=== PATIENT | female | born 1975 | race Hispanic/Latino ===

== ENCOUNTER → 2017-04-08 | Outpatient (REF) | payer OTHER ==
[2017-04-08 14:51] LABS: ALBUMIN 3.6 GM/DL (3.2-5.2); ALBUMIN/GLOBULIN RATIO 0.97 (1.00-1.93); ALKALINE PHOSPHATASE 210 U/L (45-117); ALT/SGPT 612 U/L (12-78); ANION GAP 8 MEQ/L (8-16); AST/SGOT 657 U/L (7-37); BILIRUBIN,TOTAL 0.6 MG/DL (0.2-1.0); BLOOD UREA NITROGEN 8 MG/DL (7-18); CALCIUM LEVEL 8.7 MG/DL (8.5-10.1); CARBON DIOXIDE LEVEL 30 MEQ/L (21-32); CHLORIDE LEVEL 102 MEQ/L (98-107); CHOLESTEROL LEVEL 229 MG/DL (<200); CHOLESTEROL RISK RATIO 2.436 (<5); GLOMERULAR FILTRATION RATE > 60.0 (>58); GLUCOSE, FASTING 107 MG/DL (70-105); HDL CHOLESTEROL 94 MG/DL (>40); NON-HDL-C 135 MG/DL; POTASSIUM SERUM 4.3 MEQ/L (3.5-5.1); SODIUM LEVEL 140 MEQ/L (136-145); TOTAL PROTEIN 7.3 GM/DL (6.4-8.2); TRIGLYCERIDES LEVEL 75 MG/DL (<150)
== END ==
LOC: M LAB REF 13:49
DX: R03.0 Elevated blood-pressure reading, without diagnosis of hypertension (principal)

== ENCOUNTER → 2017-04-14 | Outpatient (REF) | payer OTHER, MEDICAID ==
[2017-04-14 19:44] LABS: BASO # 0.1 10^3/uL (0.0-0.2); BASO % 0.7 % (0.0-1.0); EOS # 0.2 10^3/uL (0.0-0.50); EOS % 1.2 % (0.0-3.0); HEMATOCRIT 37.1 % (36.0-47.0); HEMOGLOBIN 10.5 g/dl (12.0-16.0); IMMATURE GRANULOCYTE # 0.1 10^3/uL (0-0); IMMATURE GRANULOCYTE % 0.7 % (0-0); LYMPH # 2.7 10^3/uL (1.5-4.5); LYMPH % 22.4 % (24.0-44.0); MEAN CORPUSCULAR HEMOGLOBIN 21.5 pg (27.0-33.0); MEAN CORPUSCULAR HGB CONC 28.3 g/dl (32.0-36.5); MONO # 0.6 10^3/uL (0.0-0.8); MONO % 5.2 % (0.0-5.0); NEUTROPHILS # 8.5 10^3/uL (1.8-7.7); NEUTROPHILS % 69.8 % (36.0-66.0); PLATELET COUNT, AUTOMATED 469 10^3/uL (150-450); RED BLOOD COUNT 4.88 10^6/uL (4.00-5.40); RED CELL DISTRIBUTION WIDTH 18.9 % (11.5-14.5); WHITE BLOOD COUNT 12.2 10^3/uL (4.0-10.0)
[2017-04-14 20:22] LABS: ALBUMIN 3.6 GM/DL (3.2-5.2); ALBUMIN/GLOBULIN RATIO 0.97 (1.00-1.93); ALKALINE PHOSPHATASE 208 U/L (45-117); ALT/SGPT 186 U/L (12-78); ANION GAP 8 MEQ/L (8-16); AST/SGOT 38 U/L (7-37); BILIRUBIN,TOTAL 0.4 MG/DL (0.2-1.0); BLOOD UREA NITROGEN 9 MG/DL (7-18); CALCIUM LEVEL 8.5 MG/DL (8.5-10.1); CARBON DIOXIDE LEVEL 30 MEQ/L (21-32); CHLORIDE LEVEL 102 MEQ/L (98-107); CREATININE FOR GFR 0.76 MG/DL (0.55-1.02); FERRITIN 10 NG/ML (8-252); GLOMERULAR FILTRATION RATE > 60.0 (>58); GLUCOSE, FASTING 127 MG/DL (70-105); IRON (FE) 27 UG/DL (50-170); SODIUM LEVEL 140 MEQ/L (136-145); TOTAL PROTEIN 7.3 GM/DL (6.4-8.2)
[2017-04-16 18:10] LABS: HEPATITIS B SURFACE ANTIGEN NEGATIVE (NEGATIVE)
[2017-04-16 18:29] LABS: HEPATITIS C VIRUS ABY INDEX 0.1 INDEX (<0.8)
[2017-04-16 18:30] LABS: HEPATITIS B CORE ANTIBODY IGM NEGATIVE (NEGATIVE)
[2017-04-16 18:40] LABS: HEPATITIS A ANTIBODY IGM NEGATIVE (NEGATIVE)
== END ==
LOC: M LAB REF 18:27
DX: R94.5 Abnormal results of liver function studies (principal)
CPT/HCPCS: 83540

== ENCOUNTER → 2017-05-04 | Outpatient (CLI) | payer OTHER, MEDICAID | LOC: M RAD 06:10 | DX: R94.5 Abnormal results of liver function studies (principal) | CPT/HCPCS: 76705 ==

== ENCOUNTER → 2017-07-05 | Outpatient (REF) | payer OTHER ==
[2017-07-05 13:43] LABS: HEMATOCRIT 34.1 % (36.0-47.0); HEMOGLOBIN 9.7 g/dl (12.0-15.5); MEAN CORPUSCULAR HGB CONC 28.4 g/dl (32.0-36.5); PLATELET COUNT, AUTOMATED 406 10^3/uL (150-450); RED BLOOD COUNT 4.61 10^6/uL (4.00-5.40); RED CELL DISTRIBUTION WIDTH 17.4 % (11.5-14.5)
[2017-07-05 13:49] LABS: WHITE BLOOD COUNT 19.4 10^3/uL (4.0-10.0)
[2017-07-05 13:50] LABS: ADD MANUAL DIFFER YES; DIFF SLIDE NUMBER 235; POSITIVE DIFF POS FLAG
[2017-07-05 13:57] LABS: IMMUNOGLOBULIN E 43.8 IU/ML (<100)
[2017-07-05 14:18] LABS: EOSINOPHILS 1 % (0-5); LYMPHOCYTES 21 % (16-52); MONOCYTES 5 % (0-8); NEUTROPHILS 73 % (35-75)
[2017-07-05 14:19] LABS: ANISOCYTOSIS 1+; HYPOCHROMASIA 1+; PLATELET ESTIMATE INCREASED (NORMAL)
[2017-07-05 14:20] LABS: POLYCHROMASIA 1+
== END ==
LOC: M LAB REF 12:40
DX: J45.50 Severe persistent asthma, uncomplicated (principal)
CPT/HCPCS: 82785

== ENCOUNTER → 2017-12-27 | Outpatient (REF) | payer OTHER, MEDICAID | LOC: M LAB REF 13:59 | DX: E66.01 Morbid (severe) obesity due to excess calories (principal) | CPT/HCPCS: 84443 ==

== ENCOUNTER 2018-01-07 17:43 | Emergency (ER) | payer OTHER, MEDICAID ==
[2018-01-07] MEDS: IPRATROPIUM 0.5MG/ALBUTEROL 2.5MG INH SOL UD 3ML (DUONEB)(J7620) NEB (18:29)
[2018-01-07] MEDS: methylPREDNISolone INJ 125 MG/2 ML VIAL (J2930) IM (18:36)
[2018-01-07 18:38] LABS: VENOUS BASE EXCESS 0.6 (-2.0-2.0); VENOUS HCO3 27.3 MEQ/L (23.0-27.0); VENOUS O2 SATURATION 71.8 % (60.0-80.0); VENOUS PARTIAL PRESSURE CO2 54.2 mmHg (38.0-50.0); VENOUS PARTIAL PRESSURE O2 43.2 mmHg (30.0-50.0); VENOUS STANDARD HCO3 24.5 MEQ/L
[2018-01-07 18:52] LABS: ANION GAP 7 MEQ/L (8-16); BASO # 0.1 10^3/uL (0.0-0.2); BASO % 0.8 % (0.0-1.0); BLOOD UREA NITROGEN 10 MG/DL (7-18); CALCIUM LEVEL 8.4 MG/DL (8.5-10.1); CARBON DIOXIDE LEVEL 29 MEQ/L (21-32); CHLORIDE LEVEL 104 MEQ/L (98-107); CREATININE FOR GFR 0.73 MG/DL (0.55-1.30); EOS # 0.6 10^3/uL (0.0-0.50); EOS % 4.1 % (0.0-3.0); GLOMERULAR FILTRATION RATE > 60.0 (>58); GLUCOSE, FASTING 145 MG/DL (70-100); HEMATOCRIT 35.2 % (36.0-47.0); HEMOGLOBIN 9.4 g/dl (12.0-15.5); IMMATURE GRANULOCYTE % 0.4 % (0-3.0); LYMPH # 3.3 10^3/uL (1.5-4.5); LYMPH % 22.9 % (24.0-44.0); MEAN CORPUSCULAR HEMOGLOBIN 19.2 pg (27.0-33.0); MEAN CORPUSCULAR HGB CONC 26.7 g/dl (32.0-36.5); MEAN CORPUSCULAR VOLUME 71.8 fl (80.0-96.0); MONO # 0.9 10^3/uL (0.0-0.8); MONO % 6.3 % (0.0-5.0); NEUTROPHILS # 9.3 10^3/uL (1.8-7.7); NEUTROPHILS % 65.5 % (36.0-66.0); PLATELET COUNT, AUTOMATED 473 10^3/uL (150-450); POTASSIUM SERUM 3.9 MEQ/L (3.5-5.1); RED CELL DISTRIBUTION WIDTH 18.5 % (11.5-14.5); SODIUM LEVEL 140 MEQ/L (136-145); WHITE BLOOD COUNT 14.2 10^3/uL (4.0-10.0)
== END 2018-01-07 19:28 | disposition home or self-care (01) ==
LOC: M ED 17:43
DX: J45.901 Unspecified asthma with (acute) exacerbation (principal)
CPT/HCPCS: J2930

== ENCOUNTER → 2018-01-19 | Outpatient (CLI) | payer OTHER | LOC: M CARPUL 09:22 | DX: R06.00 Dyspnea, unspecified (principal) | CPT/HCPCS: 93306 ==

== ENCOUNTER 2018-02-15 12:48 | Outpatient (CLI) | payer OTHER ==
[2018-03-01 15:56] LABS: ABG BASE EXCESS 1.4 (-2.0-2.0); ABG HCO3 25.4 MEQ/L (22.0-26.0); ABG O2 SATURATION 96.5 % (95.0-99.0); ABG PARTIAL PRESSURE CO2 37.9 mmHg (35.0-45.0); ABG PARTIAL PRESSURE O2 85.1 mmHg (75.0-100.0); ABG STANDARD HCO3 25.7 MEQ/L (22.0-26.0); ABG TOTAL CO2 26.6 MEQ/L (22.0-29.0); ABG pH (ARTERIAL) 7.444 UNITS (7.350-7.450)
== END 2018-03-01 ==
LOC: M CARPUL 12:48
DX: R06.00 Dyspnea, unspecified (principal)
CPT/HCPCS: 36600

== ENCOUNTER 2018-04-15 18:00 | Emergency (ER) | payer MEDICAID, OTHER ==
[~2018-04-15] VITALS: Ht 147.3 cm; Wt 100.0 kg
[~2018-04-15 18:00] MED LIST: ALBU83IN; INCR1INH; PRED10TA2; PRED10TA2 PO; PROAAER10 INH; VENTAER
[2018-04-15] MEDS ORDERED: TRAZ-160 PO (18:07)
[2018-04-15] MEDS ORDERED: CITA20TA4 PO (18:07)
[2018-04-15] MEDS ORDERED: BENZONATATE 100 MG CAP PO ONE (18:45)
[2018-04-15] MEDS ORDERED: AUGMENTIN 875 MG TAB PO ONE (18:45)
[2018-04-15] MEDS ORDERED: LIDOCAINE VISCOUS 2% SOLN 15ML UDC SS ONE (18:45)
[2018-04-15 19:15] LABS: INFLUENZA A AMPLIFICATION NEGATIVE (NEGATIVE); INFLUENZA B AMPLIFICATION NEGATIVE (NEGATIVE)
[2018-04-15] MEDS ORDERED: LIDO1SOL7 PO (19:31)
[2018-04-15] MEDS ORDERED: AUGM875T28 PO (19:31)
[2018-04-15 19:40] VITALS: BP 115/63
== END 2018-04-15 19:40 | disposition home or self-care (01) ==
LOC: M ED 18:00
DX: J06.9 Acute upper respiratory infection, unspecified (principal); B34.9 Viral infection, unspecified; H66.92 Otitis media, unspecified, left ear; J45.909 Unspecified asthma, uncomplicated; Z79.899 Other long term (current) drug therapy; Z88.8 Allergy status to other drugs, medicaments and biological substances

== ENCOUNTER 2018-05-27 12:23 | Emergency (ER) | payer MEDICAID, OTHER ==
[~2018-05-27] VITALS: Ht 147.3 cm; Wt 102.3 kg
[~2018-05-27 12:23] MED LIST changes: +AUGM875T28 PO; +CITA20TA4 PO; +LIDO1SOL7 PO; +TRAZ-160 PO
--- NOTE | 2018-05-27 14:14 | REP ---
UNILATERAL LEFT RIBS, PA CHEST: HISTORY: Pain. The examination is limited secondary to the patient's body habitus. The lungs are clear. The heart is normal in size. The pulmonary vasculature is normal in appearance. The bony structure is intact. IMPRESSION: No acute disease. Electronically Signed by Roberto Gunn MD 05/27/2018 02:20 P
[2018-05-27 14:59] VITALS: BP 127/75
== END 2018-05-27 15:07 | disposition home or self-care (01) ==
LOC: M ED 12:23
DX: S29.011A Strain of muscle and tendon of front wall of thorax, initial encounter (principal); X50.9XXA Other and unspecified overexertion or strenuous movements or postures, initial encounter; Y92.89 Other specified places as the place of occurrence of the external cause; J45.909 Unspecified asthma, uncomplicated; Z88.6 Allergy status to analgesic agent; Z79.899 Other long term (current) drug therapy

== ENCOUNTER → 2018-06-02 | Outpatient (REF) | payer OTHER, MEDICAID ==
[2018-06-02 17:14] LABS: AMORPHOUS SEDIMENT LARGE (NEGATIVE); APPEARANCE, URINE TURBID (CLEAR); BACTERIA, URINE AUTO 1+ (NEGATIVE); BILIRUBIN, URINE AUTO NEGATIVE (NEGATIVE); BLOOD, URINE BLOOD 3+ (NEGATIVE); COLOR, URINE YELLOW (YELLOW); GLUCOSE, URINE (UA) AUTO NEGATIVE (NEGATIVE); KETONE, URINE AUTO TRACE mg/dL (NEGATIVE); LEUKOCYTE ESTERASE, URINE AUTO 3+ (NEGATIVE); MUCUS, URINE LARGE (NEGATIVE); NITRITE, URINE AUTO NEGATIVE (NEGATIVE); PROTEIN, URINE AUTO 1+ mg/dL (NEGATIVE); RBC, URINE AUTO TNTC /HPF (0-3); SPECIFIC GRAVITY URINE AUTO 1.028 (1.002-1.035); SQUAMOUS EPITHELIAL CELL UR AU 2 /HPF (0-6); WBC, URINE AUTO 18 /HPF (0-3)
[2018-06-02 18:22] LABS: HEMATOCRIT 34.7 % (36.0-47.0); HEMOGLOBIN 9.2 g/dl (12.0-15.5); MEAN CORPUSCULAR HEMOGLOBIN 18.5 pg (27.0-33.0); MEAN CORPUSCULAR HGB CONC 26.5 g/dl (32.0-36.5); MEAN CORPUSCULAR VOLUME 69.8 fl (80.0-96.0); PLATELET COUNT, AUTOMATED 580 10^3/uL (150-450); RED BLOOD COUNT 4.97 10^6/uL (4.00-5.40); WHITE BLOOD COUNT 15.9 10^3/uL (4.0-10.0)
[2018-06-02 18:38] LABS: HEMOGLOBIN A1c 7.1 %
[2018-06-02 18:49] LABS: ALBUMIN 3.6 GM/DL (3.2-5.2); ALT/SGPT 27 U/L (12-78); BILIRUBIN,TOTAL 0.3 MG/DL (0.2-1.0); BLOOD UREA NITROGEN 11 MG/DL (7-18); CALCIUM LEVEL 8.3 MG/DL (8.5-10.1); CARBON DIOXIDE LEVEL 29 MEQ/L (21-32); CHLORIDE LEVEL 105 MEQ/L (98-107); CHOLESTEROL LEVEL 185 MG/DL (<200); CHOLESTEROL RISK RATIO 2.803 (<5); CREATININE FOR GFR 0.71 MG/DL (0.55-1.30); GLOMERULAR FILTRATION RATE > 60.0 (>58); GLUCOSE, FASTING 100 MG/DL (70-100); HDL CHOLESTEROL 66 MG/DL (>40); LDL CHOLESTEROL 101 MG/DL (<100); NON-HDL-C 119 MG/DL; POTASSIUM SERUM 3.7 MEQ/L (3.5-5.1); SODIUM LEVEL 142 MEQ/L (136-145); TOTAL PROTEIN 7.5 GM/DL (6.4-8.2); TRIGLYCERIDES LEVEL 89 MG/DL (<150)
[2018-06-02 18:50] LABS: TOTAL 25(OH) VITAMIN D 11.8 NG/ML (30.0-100.0)
[2018-06-02 18:58] LABS: ANISOCYTOSIS 2+; BASOPHILS 1 % (0-4); EOSINOPHILS 4 % (0-5); HYPOCHROMASIA 2+; LYMPHOCYTES 38 % (16-52); MICROCYTOSIS 2+; MONOCYTES 3 % (0-8); NEUTROPHILS 54 % (35-75); PLATELET ESTIMATE INCREASED (NORMAL)
[2018-06-02 19:01] LABS: POLYCHROMASIA 1+
== END ==
LOC: M LAB REF 16:30
PROVIDERS: ATTEND Nurse Practitioner Family
DX: N39.0 Urinary tract infection, site not specified (principal); Z13.9 Encounter for screening, unspecified

== ENCOUNTER 2018-07-01 11:51 | Emergency (ER) | payer MEDICAID, OTHER ==
[~2018-07-01] VITALS: Ht 147.3 cm; Wt 98.4 kg
[~2018-07-01 11:51] MED LIST changes: -CITA20TA4 PO; +CITA20TA6 PO; -LIDO1SOL7 PO; +LIDO1SOL8 PO
[2018-07-01] MEDS ORDERED: IPRATROPIUM 0.5MG/ALBUTEROL 2.5MG INH SOL UD 3ML (DUONEB)(J7620) As Ordered ONE (12:14)
[2018-07-01] MEDS ORDERED: methylPREDNISolone INJ 125 MG/2 ML VIAL (J2930) IV ONE (12:30)
[2018-07-01] MEDS: IPRATROPIUM 0.5MG/ALBUTEROL 2.5MG INH SOL UD 3ML (DUONEB)(J7620) NEB PRN ×2 (12:44→12:55)
[2018-07-01 12:52] LABS: BASO # 0.1 10^3/uL (0.0-0.2); BASO % 0.7 % (0.0-1.0); EOS # 0.8 10^3/uL (0.0-0.50); EOS % 4.3 % (0.0-3.0); HEMATOCRIT 33.5 % (36.0-47.0); HEMOGLOBIN 8.9 g/dl (12.0-15.5); LYMPH # 3.5 10^3/uL (1.5-4.5); LYMPH % 19.8 % (24.0-44.0); MEAN CORPUSCULAR HEMOGLOBIN 18.3 pg (27.0-33.0); MEAN CORPUSCULAR HGB CONC 26.6 g/dl (32.0-36.5); MEAN CORPUSCULAR VOLUME 68.9 fl (80.0-96.0); MONO # 1.2 10^3/uL (0.0-0.8); MONO % 6.4 % (0.0-5.0); NEUTROPHILS # 12.2 10^3/uL (1.8-7.7); NEUTROPHILS % 68.4 % (36.0-66.0); PLATELET COUNT, AUTOMATED 465 10^3/uL (150-450); RED BLOOD COUNT 4.86 10^6/uL (4.00-5.40); WHITE BLOOD COUNT 17.9 10^3/uL (4.0-10.0)
[2018-07-01 13:18] LABS: BLOOD UREA NITROGEN 11 MG/DL (7-18); CALCIUM LEVEL 8.9 MG/DL (8.5-10.1); CARBON DIOXIDE LEVEL 30 MEQ/L (21-32); CHLORIDE LEVEL 102 MEQ/L (98-107); CREATININE FOR GFR 0.66 MG/DL (0.55-1.30); GLOMERULAR FILTRATION RATE > 60.0 (>58); GLUCOSE, FASTING 93 MG/DL (70-100); SODIUM LEVEL 139 MEQ/L (136-145)
[2018-07-01 13:21] LABS: INFLUENZA A AMPLIFICATION NEGATIVE (NEGATIVE); INFLUENZA B AMPLIFICATION NEGATIVE (NEGATIVE)
--- NOTE | 2018-07-01 13:35 | REP ---
Clinical: Cough and dyspnea . Comparison: 05/27/2018 . Technique: PA and lateral. Findings: The mediastinum and cardiac silhouette are normal. The lung paulson are clear and without acute consolidation, effusion, or pneumothorax. The skeletal structures are intact and normal. Impression: 1. No acute cardiopulmonary process. Electronically Signed by Esteban Rousseau MD 07/01/2018 01:26 P
[2018-07-01] MEDS ORDERED: CITA20TA6 PO (14:09)
[2018-07-01] MEDS ORDERED: MONT10TA2 PO (14:09)
[2018-07-01] MEDS ORDERED: TRAZ-160 PO (14:09)
[2018-07-01] MEDS ORDERED: ALBU83IN PO (14:09)
[2018-07-01 14:55] VITALS: O2SAT 92
[2018-07-01] MEDS ORDERED: SYMB16INH INH (15:24)
[2018-07-01] MEDS ORDERED: PRED20TA PO (15:24)
[2018-07-01 15:37] VITALS: BP 134/86
== END 2018-07-01 15:40 | disposition home or self-care (01) ==
LOC: M ED 11:51
DX: J45.901 Unspecified asthma with (acute) exacerbation (principal); G47.33 Obstructive sleep apnea (adult) (pediatric); Z88.8 Allergy status to other drugs, medicaments and biological substances; Z79.52 Long term (current) use of systemic steroids; Z79.899 Other long term (current) drug therapy
CPT/HCPCS: 71046; 80048; 85025; 87502; 87880; 94640; 96374; 99284; J2930

== ENCOUNTER 2018-07-29 01:33 | Emergency (ER) | payer MEDICAID, OTHER ==
[~2018-07-29] VITALS: Ht 149.9 cm; Wt 95.0 kg
[~2018-07-29 01:33] MED LIST changes: +ALBU83IN PO; +MONT10TA2 PO; +PRED20TA PO; +SYMB16INH INH
[2018-07-29] MEDS ORDERED: methylPREDNISolone INJ 125 MG/2 ML VIAL (J2930) IV ONE (02:15)
[2018-07-29] MEDS ORDERED: IPRATROPIUM 0.5MG/ALBUTEROL 2.5MG INH SOL UD 3ML (DUONEB)(J7620) NEB PRN (02:15)
[2018-07-29 03:34] LABS: INFLUENZA A AMPLIFICATION NEGATIVE (NEGATIVE); INFLUENZA B AMPLIFICATION NEGATIVE (NEGATIVE)
[2018-07-29] MEDS ORDERED: PRED20TA PO (04:45)
[2018-07-29 04:53] VITALS: BP 127/78
--- NOTE | 2018-07-29 08:50 | REP ---
Chest x-ray: Two views. History: Dyspnea and cough . Comparison study: July 01, 2018 . Findings: The lungs are well inflated and free of infiltrate. The pleural angles are sharp. The heart size is normal. Pulmonary vasculature is not increased. No significant bony abnormality is seen. Impression: Negative chest x-ray. Electronically Signed by Mt Powell MD 07/29/2018 08:42 A
== END 2018-07-29 04:55 | disposition home or self-care (01) ==
LOC: M ED 01:33 → EDBD 01:33 → M ED 04:55
DX: J45.901 Unspecified asthma with (acute) exacerbation (principal); Z79.899 Other long term (current) drug therapy; Z88.8 Allergy status to other drugs, medicaments and biological substances
CPT/HCPCS: 71046; 87502; 96374; 99284; J2930

== ENCOUNTER → 2018-09-13 | Outpatient (REF) | payer OTHER ==
[~2018-09-13] MED LIST changes: +BENZ200C70 PO; +MUCI600T31 PO; -TRAZ-160 PO; +TRAZ-252 PO
[2018-09-13 18:24] LABS: BASO # 0.1 10^3/uL (0.0-0.2); BASO % 0.6 % (0.0-1.0); EOS # 0.4 10^3/uL (0.0-0.50); EOS % 2.9 % (0.0-3.0); HEMATOCRIT 35.6 % (36.0-47.0); HEMOGLOBIN 9.4 g/dl (12.0-15.5); LYMPH # 2.3 10^3/uL (1.5-4.5); LYMPH % 15.7 % (24.0-44.0); MEAN CORPUSCULAR HEMOGLOBIN 18.9 pg (27.0-33.0); MEAN CORPUSCULAR HGB CONC 26.4 g/dl (32.0-36.5); MEAN CORPUSCULAR VOLUME 71.5 fl (80.0-96.0); MONO # 0.7 10^3/uL (0.0-0.8); MONO % 4.8 % (0.0-5.0); NEUTROPHILS # 11.1 10^3/uL (1.8-7.7); NEUTROPHILS % 75.5 % (36.0-66.0); PLATELET COUNT, AUTOMATED 543 10^3/uL (150-450); RED BLOOD COUNT 4.98 10^6/uL (4.00-5.40); WHITE BLOOD COUNT 14.7 10^3/uL (4.0-10.0)
[2018-09-13 18:33] LABS: ALBUMIN 3.7 GM/DL (3.2-5.2); ALT/SGPT 29 U/L (12-78); BILIRUBIN,TOTAL 0.5 MG/DL (0.2-1.0); BLOOD UREA NITROGEN 9 MG/DL (7-18); CALCIUM LEVEL 8.8 MG/DL (8.5-10.1); CARBON DIOXIDE LEVEL 32 MEQ/L (21-32); CHLORIDE LEVEL 103 MEQ/L (98-107); CHOLESTEROL LEVEL 170 MG/DL (<200); CHOLESTEROL RISK RATIO 2.833 (<5); CREATININE FOR GFR 0.76 MG/DL (0.55-1.30); GLOMERULAR FILTRATION RATE > 60.0 (>58); GLUCOSE, FASTING 121 MG/DL (70-100); HDL CHOLESTEROL 60 MG/DL (>40); LDL CHOLESTEROL 90 MG/DL (<100); NON-HDL-C 110 MG/DL; SODIUM LEVEL 140 MEQ/L (136-145); TOTAL PROTEIN 7.2 GM/DL (6.4-8.2); TRIGLYCERIDES LEVEL 102 MG/DL (<150)
[2018-09-13 18:35] LABS: TOTAL 25(OH) VITAMIN D 25.4 NG/ML (30.0-100.0)
[2018-09-13 19:42] LABS: HEMOGLOBIN A1c 7.2 %
== END ==
LOC: M LAB REF 16:58
PROVIDERS: ATTEND Nurse Practitioner Family
DX: Z13.9 Encounter for screening, unspecified (principal); E11.9 Type 2 diabetes mellitus without complications

== ENCOUNTER 2018-09-18 22:47 | Emergency (ER) | payer OTHER ==
[~2018-09-18] VITALS: Ht 149.9 cm; Wt 100.0 kg
[2018-09-19] MEDS ORDERED: IPRATROPIUM 0.5MG/ALBUTEROL 2.5MG INH SOL UD 3ML (DUONEB)(J7620) NEB ONE (00:30)
[2018-09-19 01:46] VITALS: BP 115/62
[2018-09-29] MEDS ORDERED: METF500T4 (13:11)
== END 2018-09-19 01:49 | disposition home or self-care (01) ==
LOC: M ED 22:47
DX: J45.909 Unspecified asthma, uncomplicated (principal); G47.30 Sleep apnea, unspecified; Z79.84 Long term (current) use of oral hypoglycemic drugs; Z79.899 Other long term (current) drug therapy; Z88.8 Allergy status to other drugs, medicaments and biological substances

== ENCOUNTER 2018-09-29 13:06 | Emergency (ER) | payer OTHER ==
[~2018-09-29] VITALS: Ht 149.9 cm; Wt 104.5 kg
[2018-09-29 13:06] VITALS: BP 122/78
[2018-09-29] MEDS ORDERED: METF-791 (13:11)
[2018-09-29] MEDS ORDERED: FERR325T18 (13:11)
[2018-09-29] MEDS ORDERED: ROBA500T PO (13:39)
== END 2018-09-29 13:42 | disposition home or self-care (01) ==
LOC: M ED 13:06
DX: S29.012A Strain of muscle and tendon of back wall of thorax, initial encounter (principal); X58.XXXA Exposure to other specified factors, initial encounter; Y92.89 Other specified places as the place of occurrence of the external cause; M62.838 Other muscle spasm; J45.909 Unspecified asthma, uncomplicated; G47.33 Obstructive sleep apnea (adult) (pediatric); Z79.899 Other long term (current) drug therapy; Z88.8 Allergy status to other drugs, medicaments and biological substances

== ENCOUNTER 2018-11-28 08:04 | Emergency (ER) | payer OTHER ==
[~2018-11-28 08:04] MED LIST changes: +FERR325T18; +METF-791; +ROBA500T PO
[2018-11-28] MEDS ORDERED: methylPREDNISolone INJ 125 MG/2 ML VIAL (J2930) IV ONE (08:15)
[2018-11-28] MEDS ORDERED: ALBUTEROL SULFATE 2.5 MG/0.5 ML INH NEB SOLN INH ONE (08:15)
[2018-11-28] MEDS ORDERED: IPRATROPIUM 0.5MG/ALBUTEROL 2.5MG INH SOL UD 3ML (DUONEB)(J7620) NEB ONE ×2 (08:15→09:30)
[2018-11-28 09:18] VITALS: BP 111/69
[2018-11-28 09:32] LABS: BASO # 0.1 10^3/uL (0.0-0.2); EOS # 0.8 10^3/uL (0.0-0.50); EOS % 5.6 % (0.0-3.0); HEMATOCRIT 32.2 % (36.0-47.0); HEMOGLOBIN 8.9 g/dl (12.0-15.5); LYMPH # 2.8 10^3/uL (1.5-4.5); LYMPH % 18.7 % (24.0-44.0); MEAN CORPUSCULAR HEMOGLOBIN 19.5 pg (27.0-33.0); MEAN CORPUSCULAR HGB CONC 27.6 g/dl (32.0-36.5); MEAN CORPUSCULAR VOLUME 70.6 fl (80.0-96.0); MONO # 0.5 10^3/uL (0.0-0.8); MONO % 3.5 % (0.0-5.0); NEUTROPHILS # 10.4 10^3/uL (1.8-7.7); NEUTROPHILS % 70.9 % (36.0-66.0); PLATELET COUNT, AUTOMATED 432 10^3/uL (150-450); RED BLOOD COUNT 4.56 10^6/uL (4.00-5.40); WHITE BLOOD COUNT 14.7 10^3/uL (4.0-10.0)
[2018-11-28 10:06] LABS: ALBUMIN 3.2 GM/DL (3.2-5.2); ALT/SGPT 21 U/L (12-78); BILIRUBIN,DIRECT 0.1 MG/DL (0.0-0.2); BILIRUBIN,TOTAL 0.3 MG/DL (0.2-1.0); BLOOD UREA NITROGEN 8 MG/DL (7-18); CALCIUM LEVEL 8.4 MG/DL (8.5-10.1); CARBON DIOXIDE LEVEL 27 MEQ/L (21-32); CHLORIDE LEVEL 103 MEQ/L (98-107); GLOMERULAR FILTRATION RATE > 60.0 (>58); GLUCOSE, FASTING 135 MG/DL (70-100); NT-PRO BNP 43 PG/ML (<125); POTASSIUM SERUM 3.4 MEQ/L (3.5-5.1); SODIUM LEVEL 139 MEQ/L (136-145); THYROXINE (T4) 9.6 UG/DL (4.5-12.0); TOTAL PROTEIN 6.4 GM/DL (6.4-8.2)
[2018-11-28 10:16] VITALS: O2SAT 98
[2018-11-28] MEDS ORDERED: PRED20TA PO (10:28)
[2018-11-28] MEDS ORDERED: ZITHTAB PO (10:28)
[2018-11-28] MEDS ORDERED: AZITHROMYCIN 250 MG TAB PO ONE (10:30)
--- NOTE | 2018-11-28 20:34 | ECGEPIP ---
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
--- NOTE | 2018-11-29 11:44 | REP ---
The portable chest, 09:03 a.m., single AP view with the patient sitting: Comparison is 09/05/2018. The lung paulson are clear. The cardiac size is normal. The eric, mediastinum, and skeletal structures are unremarkable. Impression: Negative portable chest. Electronically Signed by Marcelo Lester MD 11/28/2018 09:25 A
== END 2018-11-28 11:15 | disposition home or self-care (01) ==
LOC: M ED 08:04
DX: J45.901 Unspecified asthma with (acute) exacerbation (principal); J20.9 Acute bronchitis, unspecified; R94.31 Abnormal electrocardiogram [ECG] [EKG]; E11.9 Type 2 diabetes mellitus without complications; Z79.51 Long term (current) use of inhaled steroids; Z79.84 Long term (current) use of oral hypoglycemic drugs; Z88.8 Allergy status to other drugs, medicaments and biological substances
CPT/HCPCS: 36415; 71045; 80048; 80076; 83880; 84436; 84443; 85025; 87040; 93005; 93041; 94640; 94760; 96374; 99285; J2930

== ENCOUNTER 2018-12-30 11:46 | Emergency (ER) | payer OTHER ==
[~2018-12-30] VITALS: Ht 149.9 cm; Wt 95.8 kg
[~2018-12-30 11:46] MED LIST changes: -IPRA0.00 NEB
--- NOTE | 2018-12-30 12:41 | REP ---
PA and lateral chest: Comparisons are 09/05/2018 and 11/28/2018. The lung paulson are clear. The cardiac size is normal. The eric, mediastinum, and skeletal structures are unremarkable. Impression: Negative PA and lateral chest. There is no interval change. Electronically Signed by Marcelo Lester MD 12/30/2018 12:33 P
[2018-12-30] MEDS ORDERED: IPRATROPIUM 0.5MG/ALBUTEROL 2.5MG INH SOL UD 3ML (DUONEB)(J7620) NEB ONE (13:45)
[2018-12-30] MEDS ORDERED: ALBUTEROL SULFATE 2.5 MG/0.5 ML INH NEB SOLN INH ONE (13:45)
[2018-12-30 15:32] LABS: INFLUENZA A AMPLIFICATION NEGATIVE (NEGATIVE); INFLUENZA B AMPLIFICATION NEGATIVE (NEGATIVE)
[2018-12-30] MEDS ORDERED: PRED20TA PO (16:31)
[2018-12-30] MEDS ORDERED: IPRA0.00 NEB (16:31)
[2018-12-30 16:49] VITALS: BP 132/69
== END 2018-12-30 16:50 | disposition home or self-care (01) ==
LOC: M ED 11:46
DX: J45.901 Unspecified asthma with (acute) exacerbation (principal); Z88.8 Allergy status to other drugs, medicaments and biological substances; Z79.899 Other long term (current) drug therapy; Z79.84 Long term (current) use of oral hypoglycemic drugs

== ENCOUNTER → 2018-12-30 | Outpatient (REF) | payer OTHER ==
[~2018-12-30] MED LIST changes: +IPRA0.00 NEB; +ZITHTAB PO
[2019-01-04 14:52] LABS: HPV HYBRID CAPTURE II Negative (Negative)
== END ==
LOC: M LAB REF 13:22
PROVIDERS: ATTEND Advanced Practice Midwife
DX: Z12.4 Encounter for screening for malignant neoplasm of cervix (principal)

== ENCOUNTER → 2019-01-11 | Outpatient (REF) | payer OTHER ==
[~2019-01-11] MED LIST changes: +IPRA0.00 NEB
[2019-01-11 12:57] LABS: BASO # 0.1 10^3/uL (0.0-0.2); BASO % 0.5 % (0.0-1.0); EOS # 0.2 10^3/uL (0.0-0.5); EOS % 0.8 % (0.0-3.0); HEMATOCRIT 35.3 % (36.0-47.0); HEMOGLOBIN 9.7 g/dl (12.0-15.5); LYMPH # 2.4 10^3/uL (1.5-5.0); MEAN CORPUSCULAR HEMOGLOBIN 19.7 pg (27.0-33.0); MEAN CORPUSCULAR HGB CONC 27.5 g/dl (32.0-36.5); MEAN CORPUSCULAR VOLUME 71.7 fl (80.0-96.0); MONO # 0.9 10^3/uL (0.0-0.8); MONO % 4.6 % (0.0-5.0); NEUTROPHILS # 16.6 10^3/uL (1.5-8.5); NEUTROPHILS % 81.5 % (36.0-66.0); PLATELET COUNT, AUTOMATED 481 10^3/uL (150-450); RED BLOOD COUNT 4.92 10^6/uL (4.00-5.40); WHITE BLOOD COUNT 20.3 10^3/uL (4.0-10.0)
[2019-01-11 13:37] LABS: HEMOGLOBIN A1c 6.7 %
[2019-01-11 13:56] LABS: ALBUMIN 3.6 GM/DL (3.2-5.2); ALT/SGPT 21 U/L (12-78); BILIRUBIN,TOTAL 0.3 MG/DL (0.2-1.0); BLOOD UREA NITROGEN 10 MG/DL (7-18); CALCIUM LEVEL 9.1 MG/DL (8.5-10.1); CARBON DIOXIDE LEVEL 26 MEQ/L (21-32); CHLORIDE LEVEL 103 MEQ/L (98-107); CHOLESTEROL LEVEL 187 MG/DL (<200); CHOLESTEROL RISK RATIO 2.527 (<5); GLOMERULAR FILTRATION RATE > 60.0 (>58); GLUCOSE, FASTING 112 MG/DL (70-100); HDL CHOLESTEROL 74 MG/DL (>40); LDL CHOLESTEROL 94 MG/DL (<100); NON-HDL-C 113 MG/DL; POTASSIUM SERUM 4.4 MEQ/L (3.5-5.1); SODIUM LEVEL 138 MEQ/L (136-145); TOTAL PROTEIN 7.3 GM/DL (6.4-8.2); TRIGLYCERIDES LEVEL 96 MG/DL (<150)
== END ==
LOC: M LAB REF 12:29
PROVIDERS: ATTEND Nurse Practitioner Family
DX: Z13.9 Encounter for screening, unspecified (principal); E11.9 Type 2 diabetes mellitus without complications; D64.9 Anemia, unspecified

== ENCOUNTER 2019-05-16 17:28 | Inpatient (IN) | payer OTHER ==
[~2019-05-16] VITALS: Ht 149.9 cm; Wt 94.6 kg
[~2019-05-16 17:28] MED LIST changes: -LIDO1SOL8 PO; +LIDO2SOL17 PO; -MONT10TA2 PO; +MONT10TA4 PO; -VENTAER; +VENTAER PO
[2019-05-16] MEDS ORDERED: ALBU0.63 NEB (17:37)
[2019-05-16] MEDS ORDERED: IPRATROPIUM 0.5MG/ALBUTEROL 2.5MG INH SOL UD 3ML (DUONEB)(J7620) NEB ONE ×3 (17:45→21:45)
[2019-05-16] MEDS ORDERED: ADV250INH INH (18:14)
[2019-05-16] MEDS ORDERED: NS 1,000 ML IV ONE (18:15)
[2019-05-16] MEDS ORDERED: LIDOCAINE 4% CREAM 5GM (LMX4) TOP ONE (18:15)
[2019-05-16 18:35] LABS: VENOUS BASE EXCESS 0.6 (-2.0-2.0); VENOUS HCO3 27.6 MEQ/L (23.0-27.0); VENOUS PARTIAL PRESSURE O2 37.2 mmHg (30.0-50.0); VENOUS STANDARD HCO3 24.4 MEQ/L; VENOUS TOTAL CO2 29.3 MEQ/L (24.0-28.0)
[2019-05-16 18:39] LABS: BASO # 0.2 10^3/uL (0.0-0.2); BASO % 0.8 % (0.0-1.0); EOS # 1.3 10^3/uL (0.0-0.5); EOS % 5.8 % (0.0-3.0); HEMATOCRIT 36.2 % (36.0-47.0); HEMOGLOBIN 9.9 g/dl (12.0-15.5); LYMPH # 3.7 10^3/uL (1.5-5.0); LYMPH % 16.5 % (24.0-44.0); MEAN CORPUSCULAR HEMOGLOBIN 19.5 pg (27.0-33.0); MEAN CORPUSCULAR HGB CONC 27.3 g/dl (32.0-36.5); MEAN CORPUSCULAR VOLUME 71.4 fl (80.0-96.0); MONO # 1.3 10^3/uL (0.0-0.8); MONO % 5.8 % (0.0-5.0); NEUTROPHILS % 70.6 % (36.0-66.0); PLATELET COUNT, AUTOMATED 493 10^3/uL (150-450); RED BLOOD COUNT 5.07 10^6/uL (4.00-5.40); WHITE BLOOD COUNT 22.6 10^3/uL (4.0-10.0)
--- NOTE | 2019-05-16 18:39 | REP ---
Clinical: Shortness of breath . Comparison: 03/01/2019 . Technique: PA and lateral. Findings: The mediastinum and cardiac silhouette are normal. The lung paulson are clear and without acute consolidation, effusion, or pneumothorax. The skeletal structures are intact and normal. Impression: 1. No acute cardiopulmonary process. Electronically Signed by Esteban Rousseau MD 05/16/2019 06:31 P
[2019-05-16 19:10] LABS: INFLUENZA A AMPLIFICATION POSITIVE (NEGATIVE); INFLUENZA B AMPLIFICATION NEGATIVE (NEGATIVE)
[2019-05-16 19:15] LABS: CK-MB VALUE MASS < 1.0 NG/ML (<3.6); CPK CREATINE PHOSPHOKINASE 94 U/L (26-192); MB/CK RELATIVE INDEX 1.06 (< OR =4); TROPONIN I < 0.02 NG/ML (< 0.10)
[2019-05-16] MEDS ORDERED: ISOVUE-370 76% 100ML VIAL (Q9967) As Ordered ONE (19:52)
--- NOTE | 2019-05-16 20:10 | ECGEPIP ---
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
[2019-05-16] MEDS ORDERED: ACETAMINOPHEN 325 MG TAB PO ONE (20:30)
--- NOTE | 2019-05-16 21:27 | REPVR ---
PROCEDURE INFORMATION: Exam: CT Angiography Chest With Contrast Exam date and time: 05/16/2019 8:02 PM Age: 44 years old Clinical indication: Pain and condition or disease; Lung condition and disease; Asthma; Shortness of breath and tachypnea; Chest pain; Additional info: Tachy, mid back pain, SOB, poor control asthmatic TECHNIQUE: Imaging protocol: Computed tomographic angiography of the chest with intravenous contrast. 3D rendering: MIP reconstructed images were created by the technologist. Radiation optimization: All CT scans at this facility use at least one of these dose optimization techniques: automated exposure control; mA and/or kV adjustment per patient size (includes targeted exams where dose is matched to clinical indication); or iterative reconstruction. Contrast material: ISOVUE 370; Contrast volume: 75 ml; Contrast route: IV; COMPARISON: CR Chest, 2 view PA, Lat 05/16/2019 6:17 PM FINDINGS: Limitations: Respiratory motion artifact degrades the image quality. Pulmonary arteries: There is no pulmonary embolism in the main, lobar, or segmental pulmonary arteries. The timing of the contrast bolus was suboptimal for the assessment of the subsegmental pulmonary arteries, which are poorly opacified and degraded by respiratory motion artifact. Great vessels off aortic arch: The brachiocephalic artery, imaged proximal portion of the left common carotid artery, and left subclavian artery are intact. No stenosis or occlusion of these vessels is noted. Aorta: There is no thoracic aortic aneurysm, pseudoaneurysm, intramural hematoma, penetrating atherosclerotic ulcer, or dissection. Thyroid: Unremarkable. Lungs: The lungs are clear. There is no lung consolidation or mass. No interstitial lung disease or emphysematous changes are noted. Pleural space: Unremarkable. No pneumothorax. No pleural effusion. Heart: No cardiomegaly. No pericardial effusion. The ratio of the diameter of the right ventricle to the diameter of the left ventricle measures less than 1, which is within normal limits and there is no evidence for a right ventricular strain. Mediastinum: No mediastinal mass, fluid collection, or pneumomediastinum is noted. Diaphragm: There is mild eventration of the right hemidiaphragm. Adrenals: Normal. No adrenal mass. Lymph nodes: Normal. No enlarged lymph nodes. Bones/joints: There are degenerative changes in the thoracic spine. At the T3-T4 level, there is a small central disc osteophyte complex. At the T5-T6 level, there is a small central disc osteophyte complex. At the T6-T7 level, there is a small right paracentral disc osteophyte complex. No spinal canal stenosis or neural foraminal stenosis is identified in the thoracic spine. Soft tissues: Unremarkable. IMPRESSION: 1. No pulmonary embolism in the main, lobar, or segmental pulmonary arteries. The timing of the contrast bolus was suboptimal for the assessment of the subsegmental pulmonary arteries, which are poorly opacified and degraded by respiratory motion artifact. 2. Clear lungs. Electronically signed by: Hayes Horn On 05/16/2019 21:27:16 PM
[2019-05-16] MEDS ORDERED: methylPREDNISolone INJ 125 MG/2 ML VIAL (J2930) IV ONE (21:45)
[2019-05-16] MEDS ORDERED: LEVALBUTEROL 1.25 MG/0.5 ML CONCENTRATE NEB NEB ONE (22:00)
[2019-05-16] MEDS ORDERED: METF500T13 PO (23:56)
[2019-05-17] MEDS ORDERED: GLUCOSE 4 GM CHEW TABLET PO PRN (00:15)
[2019-05-17] MEDS ORDERED: DEXTROSE 50% 50 ML SYRINGE IV PRN (00:15)
[2019-05-17] MEDS ORDERED: GLUCAGON FOR INJ 1 MG VIAL (J1610) SC PRN (00:15)
[2019-05-17] MEDS: OSELTAMIVIR PHOSPHATE 75 MG CAP (TAMIFLU) PO SCH ×3 (00:17→21:17)
[2019-05-17] MEDS ORDERED: IPRATROPIUM 0.5MG/ALBUTEROL 2.5MG INH SOL UD 3ML (DUONEB)(J7620) NEB PRN (00:30)
[2019-05-17] MEDS: HumaLOG INSULIN (NovoLOG) PER UNIT SC SCH ×5 (00:37→21:00)
[2019-05-17] MEDS: IPRATROPIUM 0.5MG/ALBUTEROL 2.5MG INH SOL UD 3ML (DUONEB)(J7620) NEB SCH ×4 (02:00→20:00)
[2019-05-17 02:06] VITALS: BP 119/81
[2019-05-17] MEDS: methylPREDNISolone INJ 125 MG/2 ML VIAL (J2930) IV SCH ×2 (05:20→13:16)
[2019-05-17 05:54] LABS: HEMATOCRIT 36.8 % (36.0-47.0); HEMOGLOBIN 9.6 g/dl (12.0-15.5); MEAN CORPUSCULAR HEMOGLOBIN 18.6 pg (27.0-33.0); MEAN CORPUSCULAR HGB CONC 26.1 g/dl (32.0-36.5); MEAN CORPUSCULAR VOLUME 71.3 fl (80.0-96.0); PLATELET COUNT, AUTOMATED 440 10^3/uL (150-450); RED BLOOD COUNT 5.16 10^6/uL (4.00-5.40); WHITE BLOOD COUNT 17.6 10^3/uL (4.0-10.0)
[2019-05-17 06:00] VITALS: BP 116/66
[2019-05-17 06:11] LABS: BLOOD UREA NITROGEN 7 MG/DL (7-18); CALCIUM LEVEL 8.4 MG/DL (8.5-10.1); CARBON DIOXIDE LEVEL 24 MEQ/L (21-32); CHLORIDE LEVEL 104 MEQ/L (98-107); CREATININE FOR GFR 0.91 MG/DL (0.55-1.30); GLOMERULAR FILTRATION RATE > 60.0 (>58); GLUCOSE, FASTING 201 MG/DL (70-100); POTASSIUM SERUM 4.1 MEQ/L (3.5-5.1); SODIUM LEVEL 138 MEQ/L (136-145)
[2019-05-17] MEDS: ENOXAPARIN 40 MG/0.4 ML SYRINGE (J1650) SC SCH (08:56)
--- NOTE | 2019-05-17 13:14 | HPE ---
DATE OF SERVICE: 05/16/2019 PRIMARY CARE PROVIDER: Alyse Caballero at [facility]. CHIEF COMPLAINT: Shortness of breath and wheezing. HISTORY OF PRESENT ILLNESS: This is a 44-year-old , asthmatic patient who states that she has had asthma all of her life and presented to the emergency department today complaining of increased shortness of breath. She says that the worsening of her symptoms started May 05. She was seen at the urgent care on [facility] and she was diagnosed with an upper respiratory infection and given a 10-day prednisone taper as well as 10 days of amoxicillin. She finished that today, but did not feel any relief of her symptoms so she presented to the emergency department. She has been using her albuterol nebulizer around the clock and endorses compliance with all of her home medications which include albuterol inhalers, albuterol nebulizers, and an Advair inhaler. She does endorse a sick contact, her 15-year-old son tested positive for influenza A on . She states that she will start coughing when she has problems breathing, but denies any sputum production. She says that she has been consistently wheezing and it feels like she cannot catch her breath. She denies fevers or chills but does endorse some hot flashes when the wheezing starts. PAST MEDICAL HISTORY: Diabetes, on metformin. Asthma. Depression. Obstructive sleep apnea, not on CPAP. PAST SURGICAL HISTORY: Cholecystectomy. x2. Tubal ligation. ALLERGIES: ASPIRIN. FAMILY HISTORY: Noncontributory. SOCIAL HISTORY: She has a never smoker. Denies any alcohol or drug use. Does not have any pets. Does not travel. She does not work, she has Social Security/Disability for her asthma. She has two kids ages 15 and 7, the eldest of which tested positive for flu on . There is no smoking in the house. REVIEW OF SYSTEMS: Constitutional: Denies any weight loss, fevers, chills or night sweats. Does have hot flashes. Eyes: Denies any vision changes, headache, eye pain, double vision or feeling like a curtain got pulled down. Ear, nose, and throat: Denies runny nose, epistaxis, sinus pain, ear pain, tinnitus, gingival bleeding, sore throat or odynophagia. Cardiovascular: Denies chest pain, paroxysmal nocturnal dyspnea or orthopnea. Denies edema or palpitations. Respiratory: History of obstructive sleep apnea (ZAN) not on CPAP. Positive for history of asthma with active wheezing and coughing, but denies sputum production. Gastrointestinal: Denies abdominal pain, nausea, vomiting, diarrhea, constipation, obstipation, hematemesis, hematochezia, melena or tenesmus. Genitourinary: Denies dysuria, incontinence, nocturia, polyuria or hesitancy. Musculoskeletal: Positive for some back stiffness but denies any active joint swelling, decreased range of motion, crepitus or significant muscle pain. Integumentary: Denies any new rashes, pruritus, stria or lesions. Neuro: Denies any changes to sight/smelling/hearing/taste, seizures, headaches, paresthesias or anesthesias. Psychiatric: Does admit to depression. Denies anxiety, paranoia, anhedonia or episodes of donaldo. Endocrine: Denies mood swings, diarrhea, tremors, palpitations, dry skin, constipation, heavy period, polydipsia, polyuria or polyphagia. Hematologic: Positive for easy bruising with her frequent steroid use for asthma exacerbations, but denies any anemia, purpura or petechiae. Lymphatic: Denies any new lumps or bumps anywhere. PHYSICAL EXAMINATION: Vitals: Temperature 97.8, pulse 112 and regular, respiratory rate 20 and mildly labored, blood pressure 174/90, 98% on room air. General: This is an obese female in no acute distress lying on the stretcher in the emergency department playing on her phone. HEENT: Atraumatic, normocephalic. Mucous membranes are moist. Sclera are anicteric. Neck: Obese, jugular venous distention (JVD) unable to be appreciated. Supple, no masses. Lungs: Diffuse inspiratory and expiratory wheezes, no adventitious breath sounds are heard. No E to A egophony is present. Symmetric expansion. Heart: Regular rhythm, tachycardiac rate. No murmurs, gallops or rubs appreciated. S1 and S2 are normal. Abdomen: Obese, normoactive bowel sounds are present. No masses to palpation. No tenderness to palpation. Extremities: No bilateral lower extremity edema and no clubbing or cyanosis. Capillary refill is brisk and pulse are 2+ in all four extremities. Back: No CVA tenderness. Neuro: 5/5 muscle strength throughout. No sensory deficits are noted. Cranial nerves II-XII grossly intact. LABORATORY DATA: CBC: WBC 22.6, hemoglobin 9.9, hematocrit 36.2, platelets 493. Differential shows a 71% neutrophilic predominance in the left shift, lymphocytes are 17%. Chemistry: Sodium 139, potassium 3.4, chloride 100, CO2 28, BUN 6, creatinine 0.6 glucose 139, creatinine kinase 94, CK-MB less than 1.0. Troponin is less than 0.02. Venous blood gas shows a pH which is slightly low at 7.31 with an elevated pCO2 at 56 and an elevated HCO3 at 28; indicating respiratory acidosis with incomplete metabolic compensation. Serology: Positive for influenza A, negative for influenza B. IMAGING: Chest x-ray done 05/16/2019 shows mediastinum and cardiac silhouette are normal, lung paulson are clear without acute consolidation, effusion or pneumothorax, skeletal structures are intact and normal. CT angio of the chest done 05/16/2019 was negative for pulmonary embolism and one the lungs were clear without consolidation, mass, interstitial lung disease or emphysematous changes. ASSESSMENT: This is a 44-year-old asthmatic who is being admitted to the hospital for asthma exacerbation and difficulty breathing status post 10-day prednisone taper and 10-day course of amoxicillin. PLAN: 1. Asthma exacerbation. We will obtain a pulmonary consult in the morning. Right now she will be on Solu-Medrol 80 mg every 8 hours IV as well as [id number]-[id number] DuoNebs. This is likely secondary to influenza A, though it sounds like her outpatient treatment is suboptimal. Oxygen titration orders to maintain saturation greater than 90%. 2. Influenza A. Son was diagnosed on and upon further inquiry she did state that she started having some hot flashes over the weekend, we will start Tamiflu 75 mg by mouth twice a day for 5 days. 3. Obstructive sleep apnea, not on CPAP. We will hold her home trazodone and put her on obstructive sleep apnea protocol. 4. Diabetes. Hold home metformin. Sliding scale insulin per [facility] protocol with fingersticks. Last A1c in January was 6.7. If she remains hyperglycemic despite sliding scale insulin, may add a long-acting basal insulin. 5. Depression. Will hold off on the patient's trazodone right now as it as she does have untreated obstructive sleep apnea. 6. Deep venous thrombosis (DVT) prophylaxis. Lovenox. DISPOSITION: Inpatient as we expect greater than two midnights. MTDD
[2019-05-17] MEDS: ACETAMINOPHEN TAB 650MG DOSE (2X325MG) PO PRN (13:20)
[2019-05-17 14:00] VITALS: BP 141/90
--- NOTE | 2019-05-17 17:31 | IPNPDOC ---
Text Note Date of Service The patient was seen on 05/17/19. NOTE Subjective: -Feels better but still feels poorly with cough and chest tightness that has improved. Objective: General: NAD, sitting up watch TV on her phone HEENT: NCAT, PERRLA, EOMI, no scleral injection, clear posterior oropharynx Pulm: Mild expiratory wheezing with some tightness Cardiac: Mild tachycardia, regular rhythm, no murmurs noted Abd: obese, normoactive, NTND Ext: WWP, 2+ DP pulses, no edema Neuro: normal gait, grossly nonfocal exam Psych: Aox3 Labs: reviewed. see below Assessment: 44-year-old asthmatic who was admitted with moderate respiratory distress and found to have influenza A. PLAN: 1. Asthma exacerbation 2/2 flu A -Switch Solu-Medrol 80 mg every 8 hours IV to prednisone 40 daily given clinical improvement -q6h DuoNebs, with q2hPRN for wheezing and SOB -Tamiflu 75 mg by mouth twice a day for 5 days, today is day 2 2. Obstructive sleep apnea, not on CPAP. -declines CPAP 4. Diabetes. -continue holding home metformin. -Sliding scale insulin AC/HS -FSBG AC/HS 5. Deep venous thrombosis (DVT) prophylaxis. Lovenox. VS,Fishbone, I+O VS, Fishbone, I+O Laboratory Tests 05/16/19 18:25 05/17/19 05:21 Vital Signs Date Time Temp Pulse Resp B/P (MAP) Pulse Ox O2 Delivery O2 Flow Rate FiO2 05/17/19 14:00 98.2 133 20 141/90 (107) 95 Room Air I&O- Last 24 Hours up to 6 AM 05/17/19 06:00 Intake Total 1150 ml Output Total 200 ml Balance 950 ml JAYY CAMARILLO MD May 17, 2019 17:31
[2019-05-17] MEDS ORDERED: LEVALBUTEROL 1.25 MG/0.5 ML CONCENTRATE NEB NEB ONE (20:30)
[2019-05-17 22:00] VITALS: BP 134/89
[2019-05-18] MEDS: traZODone 50 MG TAB PO SCH (00:21)
[2019-05-18] MEDS: ACETAMINOPHEN TAB 650MG DOSE (2X325MG) PO PRN (00:22)
[2019-05-18] MEDS: IPRATROPIUM 0.5MG/ALBUTEROL 2.5MG INH SOL UD 3ML (DUONEB)(J7620) NEB SCH ×4 (01:08→20:01)
[2019-05-18] MEDS ORDERED: LEVALBUTEROL 1.25 MG/0.5 ML CONCENTRATE NEB INH SCH (02:00)
[2019-05-18 06:00] VITALS: BP 110/70
[2019-05-18] MEDS: HumaLOG INSULIN (NovoLOG) PER UNIT SC SCH ×4 (07:30→20:32)
[2019-05-18] MEDS: ENOXAPARIN 40 MG/0.4 ML SYRINGE (J1650) SC SCH (09:00)
[2019-05-18] MEDS: OSELTAMIVIR PHOSPHATE 75 MG CAP (TAMIFLU) PO SCH ×2 (09:10→20:35)
[2019-05-18] MEDS: predniSONE 20 MG TAB PO SCH (09:10)
--- NOTE | 2019-05-18 10:52 | IPN ---
DATE: 05/18/2019 Christina is seen in [address] [place]. She was admitted with influenza A with exacerbation of asthma secondary to this. She is feeling better, less short of breath, less wheezy and feels that she has improved over the last 24 hours. Afebrile. Vital signs stable, 97% oxygen saturation. Alert and conversant in no distress. Lungs expiratory wheezes all paulson. Good air movement. She has no peripheral edema. LABS: She had no labs ordered for today. IMPRESSION: 1. Asthma exacerbation secondary to influenza A. She is responding to current therapy. Recommend getting out of bed more and increasing activity. Continue nebulized bronchodilator. She is on oral prednisone now. Anticipate discharge in the next day or two.
[2019-05-18 14:00] VITALS: BP 139/80
[2019-05-18 22:00] VITALS: BP 129/74
[2019-05-19] MEDS: traZODone 50 MG TAB PO SCH ×2 (00:27→23:37)
[2019-05-19] MEDS: IPRATROPIUM 0.5MG/ALBUTEROL 2.5MG INH SOL UD 3ML (DUONEB)(J7620) NEB SCH ×4 (01:41→19:48)
[2019-05-19 06:00] VITALS: BP 142/80
[2019-05-19 06:09] LABS: HEMATOCRIT 31.6 % (36.0-47.0); HEMOGLOBIN 8.6 g/dl (12.0-15.5); MEAN CORPUSCULAR HEMOGLOBIN 19.1 pg (27.0-33.0); MEAN CORPUSCULAR HGB CONC 27.2 g/dl (32.0-36.5); MEAN CORPUSCULAR VOLUME 70.1 fl (80.0-96.0); PLATELET COUNT, AUTOMATED 410 10^3/uL (150-450); RED BLOOD COUNT 4.51 10^6/uL (4.00-5.40); WHITE BLOOD COUNT 21.5 10^3/uL (4.0-10.0)
[2019-05-19 06:29] LABS: BLOOD UREA NITROGEN 10 MG/DL (7-18); CALCIUM LEVEL 8.3 MG/DL (8.5-10.1); CARBON DIOXIDE LEVEL 31 MEQ/L (21-32); CHLORIDE LEVEL 101 MEQ/L (98-107); CREATININE FOR GFR 0.76 MG/DL (0.55-1.30); GLOMERULAR FILTRATION RATE > 60.0 (>58); GLUCOSE, FASTING 87 MG/DL (70-100); POTASSIUM SERUM 3.5 MEQ/L (3.5-5.1); SODIUM LEVEL 139 MEQ/L (136-145)
[2019-05-19] MEDS: HumaLOG INSULIN (NovoLOG) PER UNIT SC SCH (07:30)
[2019-05-19] MEDS: ENOXAPARIN 40 MG/0.4 ML SYRINGE (J1650) SC SCH (09:00)
[2019-05-19] MEDS: OSELTAMIVIR PHOSPHATE 75 MG CAP (TAMIFLU) PO SCH ×2 (09:14→21:14)
[2019-05-19] MEDS: predniSONE 20 MG TAB PO SCH (09:15)
--- NOTE | 2019-05-19 10:52 | IPN ---
DATE: 05/19/2019 Rebecca is still wheezy. She is less short of breath. She is definitely responding to treatment but does not feel she is ready for discharge. No shortness of breath at rest. She has not walked yet today. PHYSICAL EXAM: Afebrile. Oxygen saturation 93-95% on room air. 142/80. She is alert and conversant, in no distress. HEENT: Unremarkable. No retractions. Lungs: Expiratory wheezes in all paulson but better air movement than yesterday. Heart: Regular rhythm. Abdomen: Soft, nontender. No peripheral edema. LABS: White count 21,000, on steroids, hemoglobin 86, platelets 410. Electrolytes unremarkable. Blood sugars are below 200. IMPRESSION: 1. Exacerbation of asthma secondary to influenza. She is responding to prescribed therapy. I expect she will probably be stable for discharge tomorrow. 2. History of diabetes. She has required almost no insulin coverage during this admission. I am stopping her fingersticks and coverage.
[2019-05-19 14:00] VITALS: BP 113/60
[2019-05-19 22:00] VITALS: BP 106/60
[2019-05-20] MEDS: IPRATROPIUM 0.5MG/ALBUTEROL 2.5MG INH SOL UD 3ML (DUONEB)(J7620) NEB SCH ×4 (02:58→19:58)
[2019-05-20 06:00] VITALS: BP 122/72
[2019-05-20 06:54] LABS: HEMATOCRIT 31.3 % (36.0-47.0); HEMOGLOBIN 8.5 g/dl (12.0-15.5); MEAN CORPUSCULAR HGB CONC 27.2 g/dl (32.0-36.5); PLATELET COUNT, AUTOMATED 388 10^3/uL (150-450); RED BLOOD COUNT 4.47 10^6/uL (4.00-5.40); WHITE BLOOD COUNT 18.9 10^3/uL (4.0-10.0)
[2019-05-20 07:13] LABS: BLOOD UREA NITROGEN 13 MG/DL (7-18); CALCIUM LEVEL 8.5 MG/DL (8.5-10.1); CARBON DIOXIDE LEVEL 31 MEQ/L (21-32); CHLORIDE LEVEL 104 MEQ/L (98-107); GLOMERULAR FILTRATION RATE > 60.0 (>58); GLUCOSE, FASTING 111 MG/DL (70-100); POTASSIUM SERUM 3.3 MEQ/L (3.5-5.1); SODIUM LEVEL 140 MEQ/L (136-145)
[2019-05-20] MEDS: ENOXAPARIN 40 MG/0.4 ML SYRINGE (J1650) SC SCH (09:00)
[2019-05-20] MEDS: OSELTAMIVIR PHOSPHATE 75 MG CAP (TAMIFLU) PO SCH ×2 (09:24→21:22)
[2019-05-20] MEDS: predniSONE 20 MG TAB PO SCH (09:25)
[2019-05-20 14:00] VITALS: BP 125/72
--- NOTE | 2019-05-20 14:47 | IPNPDOC ---
Text Note Date of Service The patient was seen on 05/20/19. NOTE Subjective: -Feels better but still with significant SANZ. Objective: General: NAD, sitting up watch TV on her phone HEENT: NCAT, PERRLA, EOMI, no scleral injection, clear posterior oropharynx Pulm: CTAB Cardiac: RRR, no mrg Abd: obese, normoactive, NTND Ext: WWP, 2+ DP pulses, no edema Neuro: normal gait, grossly nonfocal exam Psych: Aox3 Labs: reviewed. see below Assessment: 44-year-old asthmatic who was admitted with moderate respiratory distress and found to have influenza A who is improving but continues to have significant SANZ. PLAN: 1. Asthma exacerbation 2/2 flu A -Continue prednisone 40 daily -q6h DuoNebs, with q2hPRN for wheezing and SOB -Tamiflu 75 mg by mouth twice a day for 5 days, today is day 5 -Incentive spirometry -PT/OT 2. Obstructive sleep apnea, not on CPAP. -declines CPAP 4. Diabetes. -continue holding home metformin. -Sliding scale insulin AC/HS -FSBG AC/HS 5. Deep venous thrombosis (DVT) prophylaxis. Lovenox. VS,Fishbone, I+O VS, Fishbone, I+O Laboratory Tests 05/20/19 06:38 Vital Signs Date Time Temp Pulse Resp B/P (MAP) Pulse Ox O2 Delivery O2 Flow Rate FiO2 05/20/19 10:39 99 22 98 Room Air 05/20/19 06:00 97.0 122/72 (89) I&O- Last 24 Hours up to 6 AM 05/20/19 06:00 Intake Total 1400 ml Output Total 1850 ml Balance -450 ml JAYY CAMARILLO MD May 20, 2019 14:46
[2019-05-20 22:00] VITALS: BP 125/72
[2019-05-20] MEDS: traZODone 50 MG TAB PO SCH (23:20)
[2019-05-21] MEDS: IPRATROPIUM 0.5MG/ALBUTEROL 2.5MG INH SOL UD 3ML (DUONEB)(J7620) NEB SCH ×4 (00:15→20:44)
[2019-05-21 06:00] VITALS: BP 119/73
[2019-05-21 07:07] LABS: HEMATOCRIT 32.1 % (36.0-47.0); HEMOGLOBIN 8.8 g/dl (12.0-15.5); MEAN CORPUSCULAR HEMOGLOBIN 19.3 pg (27.0-33.0); MEAN CORPUSCULAR HGB CONC 27.4 g/dl (32.0-36.5); MEAN CORPUSCULAR VOLUME 70.2 fl (80.0-96.0); PLATELET COUNT, AUTOMATED 417 10^3/uL (150-450); RED BLOOD COUNT 4.57 10^6/uL (4.00-5.40); WHITE BLOOD COUNT 20.9 10^3/uL (4.0-10.0)
[2019-05-21 07:28] LABS: BLOOD UREA NITROGEN 13 MG/DL (7-18); CALCIUM LEVEL 8.3 MG/DL (8.5-10.1); CARBON DIOXIDE LEVEL 31 MEQ/L (21-32); CHLORIDE LEVEL 102 MEQ/L (98-107); CREATININE FOR GFR 0.69 MG/DL (0.55-1.30); GLOMERULAR FILTRATION RATE > 60.0 (>58); GLUCOSE, FASTING 89 MG/DL (70-100); POTASSIUM SERUM 3.4 MEQ/L (3.5-5.1); SODIUM LEVEL 137 MEQ/L (136-145)
[2019-05-21] MEDS: ENOXAPARIN 40 MG/0.4 ML SYRINGE (J1650) SC SCH (09:00)
[2019-05-21] MEDS: predniSONE 20 MG TAB PO SCH (09:25)
[2019-05-21] MEDS: OSELTAMIVIR PHOSPHATE 75 MG CAP (TAMIFLU) PO SCH (09:25)
[2019-05-21] MEDS: ACETAMINOPHEN TAB 650MG DOSE (2X325MG) PO PRN (09:30)
[2019-05-21 14:00] VITALS: BP 109/65
--- NOTE | 2019-05-21 14:11 | IPNPDOC ---
Text Note Date of Service The patient was seen on 05/21/19. NOTE Subjective: -Feels better and my plan had been to discharge her home with a pred taper but remains with significant SANZ and is winded after minimal exertion. Objective: General: NAD, sitting up watch TV on her phone HEENT: NCAT, PERRLA, EOMI, no scleral injection, clear posterior oropharynx Pulm: Scattered wheezing, but otherwise moving air relatively well, no crackles or rhonchi Cardiac: RRR, no mrg Abd: obese, normoactive, NTND Ext: WWP, 2+ DP pulses, no edema Neuro: normal gait, grossly nonfocal exam Psych: Aox3 Labs: reviewed. see below Assessment: 44-year-old asthmatic who was admitted with moderate respiratory distress and found to have influenza A who is improving but continues to have significant SANZ with poorly controlled severe asthma at baseline. PLAN: 1. Asthma exacerbation 2/ flu A -Continue prednisone 40 daily -q6h DuoNebs, with q2hPRN for wheezing and SOB -s/p 5d of Tamiflu -Incentive spirometry -PT/OT 2. Obstructive sleep apnea, not on CPAP. -declines CPAP 4. Diabetes. -continue holding home metformin. -Sliding scale insulin AC/HS -FSBG AC/HS 5. Deep venous thrombosis (DVT) prophylaxis. Lovenox. VS,Fishbone, I+O VS, Fishbone, I+O Laboratory Tests 05/21/19 06:42 Vital Signs Date Time Temp Pulse Resp B/P (MAP) Pulse Ox O2 Delivery O2 Flow Rate FiO2 05/21/19 13:26 97 20 97 Room Air 05/21/19 06:00 98.7 119/73 (88) I&O- Last 24 Hours up to 6 AM 05/21/19 06:00 Intake Total 1080 ml Output Total 1650 ml Balance -570 ml JAYY CAMARILLO MD May 21, 2019 14:11
[2019-05-21 22:00] VITALS: BP 106/64
[2019-05-21] MEDS: traZODone 50 MG TAB PO SCH (23:33)
[2019-05-22] MEDS: IPRATROPIUM 0.5MG/ALBUTEROL 2.5MG INH SOL UD 3ML (DUONEB)(J7620) NEB SCH ×2 (02:00→06:39)
[2019-05-22 05:56] LABS: HEMATOCRIT 32.7 % (36.0-47.0); HEMOGLOBIN 8.9 g/dl (12.0-15.5); MEAN CORPUSCULAR HEMOGLOBIN 19.1 pg (27.0-33.0); MEAN CORPUSCULAR HGB CONC 27.2 g/dl (32.0-36.5); PLATELET COUNT, AUTOMATED 435 10^3/uL (150-450); RED BLOOD COUNT 4.67 10^6/uL (4.00-5.40); WHITE BLOOD COUNT 19.1 10^3/uL (4.0-10.0)
[2019-05-22 06:00] VITALS: BP 113/74
[2019-05-22 06:17] LABS: BLOOD UREA NITROGEN 8 MG/DL (7-18); CALCIUM LEVEL 8.1 MG/DL (8.5-10.1); CARBON DIOXIDE LEVEL 30 MEQ/L (21-32); CHLORIDE LEVEL 103 MEQ/L (98-107); GLOMERULAR FILTRATION RATE > 60.0 (>58); GLUCOSE, FASTING 71 MG/DL (70-100); POTASSIUM SERUM 3.5 MEQ/L (3.5-5.1); SODIUM LEVEL 138 MEQ/L (136-145)
[2019-05-22] MEDS ORDERED: POTASSIUM CHLORIDE 10 MEQ SR TABLET PO ONE (08:00)
[2019-05-22] MEDS: ENOXAPARIN 40 MG/0.4 ML SYRINGE (J1650) SC SCH (08:54)
[2019-05-22] MEDS: predniSONE 20 MG TAB PO SCH (08:55)
[2019-05-22] MEDS ORDERED: PRED10TA2 PO (10:45)
--- NOTE | 2019-05-22 17:12 | DS.PDOC ---
Discharge Summary General Date of Admission May 17, 2019 at 01:08 Date of Discharge 05/22/2019 Attending Physician: JAYY CAMARILLO MD Discharge Summary PROCEDURES PERFORMED DURING STAY: None ADMITTING DIAGNOSES: 1. Acute asthma exacerbation 2/2 influenza A DISCHARGE DIAGNOSES: 1. Acute asthma exacerbation 2/2 influenza A 2. Baseline severe asthma COMPLICATIONS/CHIEF COMPLAINT: Asthma With Acute Exacerbation,Influenza A. HISTORY OF PRESENT ILLNESS: 44 yo W with what appears to be severe persistent asthma at baseline on low dose advair and PRN albuterol who presented with acute on chronic SANZ, wheezing and respiratory distress. HOSPITAL COURSE: In the ED, she was found to have Influenza A and required IV steroids and supportive nebulizer treatments. On day 3, I switched her over to prednisone 40 and kept her for a few more days due to SANZ that she frankly de scribed to be her baseline. PT worked with her and cleared her for home discharge and I am now discharging her home after Tamiflu with a prednisone taper and close pulmonology and PCP follow up. DISCHARGE MEDICATIONS: Please see below. ALLERGIES: Please see below. PHYSICAL EXAMINATION ON DISCHARGE: VITAL SIGNS: Please see below. General: NAD, sitting up watch TV on her phone HEENT: NCAT, PERRLA, EOMI, no scleral injection, clear posterior oropharynx Pulm: No wheezing today, moving air relatively well, no crackles or rhonchi Cardiac: RRR, no mrg Abd: obese, normoactive, NTND Ext: WWP, 2+ DP pulses, no edema Neuro: normal gait, grossly nonfocal exam Psych: Aox3 LABORATORY DATA: Please see below. IMAGING: CTA: 1. No pulmonary embolism in the main, lobar, or segmental pulmonary arteries. The timing of the contrast bolus was suboptimal for the assessment of the subsegmental pulmonary arteries, which are poorly opacified and degraded by respiratory motion artifact. 2. Clear lungs. CXR: No acute cardiopulmonary pathology PROGNOSIS: Guarded, will require asthma optimization for hopefully improved quality of life ACTIVITY: As tolerated DIET: Regular DISCHARGE PLAN: Home with prednisone taper and close pulmonology follow up, as well as PCP follow up DISPOSITION: 01 Home, Self-Care. DISCHARGE INSTRUCTIONS: 1. Home with prednisone taper and close pulmonology follow up, as well as PCP follow up ITEMS TO FOLLOWUP ON ON OUTPATIENT: 1. Asthma DISCHARGE CONDITION: Stable TIME SPENT ON DISCHARGE: 43 minutes. Vital Signs/I&Os Vital Signs Date Time Temp Pulse Resp B/P (MAP) Pulse Ox O2 Delivery O2 Flow Rate FiO2 05/22/19 10:41 91 14 97 Room Air 05/22/19 06:00 98.9 113/74 (87) I&O- Last 24 Hours up to 6 AM 05/22/19 06:00 Intake Total 1580 ml Output Total 800 ml Balance 780 ml Laboratory Data Labs 24H Laboratory Tests 2 05/22/19 05:30: Nucleated Red Blood Cells % (auto) 0.0, Anion Gap 5L, Glomerular Filtration Rate > 60.0, Calcium Level 8.1L CBC/BMP Laboratory Tests 05/22/19 05:30 Discharge Medications Scheduled Prednisone (Prednisone) 10 Mg Tablet, 1 TAB PO ASDIRECTED 4 tabs/day for 4 days. Then 3 tabs/day for 4 days. Then 2 tabs/day for 4 days. Then 1 tab/day for 4 days. Salmeterol/Fluticasone (Advair 250-50 Diskus) 1 Each Blst.w.dev, 2 PUFF INH BID, (Reported) Trazodone HCl (Trazodone HCl) 50 Mg Tab, 50 MG PO QHS, (Reported) Scheduled PRN Albuterol Sulf (Albuterol Sulfate) 2.5 Mg/3 Ml Nebu, 1 VIAL PO Q4H PRN for SHORTNESS OF BREATH, (Reported) Albuterol Sulfate (Ventolin Hfa) 108 Mcg/Act Aer, 2 PUFF PO Q6H PRN for SOB/WHEEZING, (Reported) Metformin HCl (Metformin HCl) 500 Mg Tablet, 500 MG PO BID PRN for HIGH BLOOD SUGAR, (Reported) Allergies Coded Allergies: aspirin (Verified Allergy, Intermediate, SWELLING, 09/18/18) JAYY CAMARILLO MD May 22, 2019 17:12
== END 2019-05-22 12:14 | disposition home or self-care (01) | DRG 113 ==
LOC: M ED 17:28 → M ED INP 05-17 01:08 → ENRESERV 05-17 01:35 → M MSPAV 05-17 02:05
PROVIDERS: ADMIT Internal Medicine; ATTEND Internal Medicine
DX: J10.1 Influenza due to other identified influenza virus with other respiratory manifestations (principal); J45.51 Severe persistent asthma with (acute) exacerbation; E11.9 Type 2 diabetes mellitus without complications; F32.9 Major depressive disorder, single episode, unspecified; G47.33 Obstructive sleep apnea (adult) (pediatric); Z88.6 Allergy status to analgesic agent; Z79.84 Long term (current) use of oral hypoglycemic drugs; Z79.899 Other long term (current) drug therapy

== ENCOUNTER 2019-06-13 20:49 | Emergency (ER) | payer OTHER ==
[~2019-06-13] VITALS: Ht 149.9 cm; Wt 93.2 kg
[~2019-06-13 20:49] MED LIST changes: +ADV250INH INH; +ALBU0.63 NEB; +METF500T13 PO
[2019-06-13] MEDS ORDERED: OMEP-218 (20:59)
[2019-06-13] MEDS ORDERED: methylPREDNISolone INJ 125 MG/2 ML VIAL (J2930) IV ONE (21:45)
[2019-06-13] MEDS: IPRATROPIUM 0.5MG/ALBUTEROL 2.5MG INH SOL UD 3ML (DUONEB)(J7620) NEB PRN ×3 (21:54→22:09)
[2019-06-13 22:17] LABS: BASO # 0.1 10^3/uL (0.0-0.2); BASO % 0.9 % (0.0-1.0); EOS % 7.2 % (0.0-3.0); HEMATOCRIT 34.4 % (36.0-47.0); HEMOGLOBIN 9.2 g/dl (12.0-15.5); LYMPH # 2.8 10^3/uL (1.5-5.0); LYMPH % 20.9 % (24.0-44.0); MEAN CORPUSCULAR HEMOGLOBIN 18.8 pg (27.0-33.0); MEAN CORPUSCULAR HGB CONC 26.7 g/dl (32.0-36.5); MEAN CORPUSCULAR VOLUME 70.3 fl (80.0-96.0); MONO % 7.1 % (0.0-5.0); NEUTROPHILS # 8.5 10^3/uL (1.5-8.5); NEUTROPHILS % 63.3 % (36.0-66.0); PLATELET COUNT, AUTOMATED 481 10^3/uL (150-450); RED BLOOD COUNT 4.89 10^6/uL (4.00-5.40); WHITE BLOOD COUNT 13.4 10^3/uL (4.0-10.0)
[2019-06-13 22:48] LABS: ALBUMIN 3.6 GM/DL (3.2-5.2); ALT/SGPT 27 U/L (12-78); BILIRUBIN,DIRECT < 0.1 MG/DL (0.0-0.2); BILIRUBIN,TOTAL 0.2 MG/DL (0.2-1.0); BLOOD UREA NITROGEN 10 MG/DL (7-18); CALCIUM LEVEL 8.8 MG/DL (8.5-10.1); CARBON DIOXIDE LEVEL 31 MEQ/L (21-32); CHLORIDE LEVEL 102 MEQ/L (98-107); CREATININE FOR GFR 0.83 MG/DL (0.55-1.30); GLOMERULAR FILTRATION RATE > 60.0 (>58); GLUCOSE, FASTING 114 MG/DL (70-100); POTASSIUM SERUM 4.2 MEQ/L (3.5-5.1); SODIUM LEVEL 140 MEQ/L (136-145); TOTAL PROTEIN 7.4 GM/DL (6.4-8.2)
[2019-06-13 22:56] LABS: INFLUENZA A AMPLIFICATION NEGATIVE (NEGATIVE); INFLUENZA B AMPLIFICATION NEGATIVE (NEGATIVE)
[2019-06-13] MEDS ORDERED: PRED10TA2 PO (23:35)
[2019-06-13 23:50] VITALS: BP 136/73
--- NOTE | 2019-06-14 03:08 | REP ---
Clinical: Cough and dyspnea . Comparison: None . Technique: PA and lateral. Findings: The mediastinum and cardiac silhouette are normal. The lung paulson are clear and without acute consolidation, effusion, or pneumothorax. The skeletal structures are intact and normal. Impression: 1. No acute cardiopulmonary process. Electronically Signed by Esteban Rousseau MD 06/14/2019 02:59 A
== END 2019-06-14 00:02 | disposition home or self-care (01) ==
LOC: M ED 20:49
DX: J45.901 Unspecified asthma with (acute) exacerbation (principal); E11.9 Type 2 diabetes mellitus without complications; Z79.51 Long term (current) use of inhaled steroids; Z79.84 Long term (current) use of oral hypoglycemic drugs; Z79.899 Other long term (current) drug therapy; Z88.6 Allergy status to analgesic agent
CPT/HCPCS: 71046; 80048; 80076; 85025; 87502; 94640; 94760; 96374; 99284; J2930

== ENCOUNTER → 2019-08-12 | Outpatient (CLI) | payer OTHER ==
[~2019-08-12] MED LIST changes: -METF-791; +METF-838; +OMEP-218
--- NOTE | 2019-08-13 07:36 | REP ---
TWO-VIEW CHEST: REASON: Dyspnea. COMPARISON: Multiple, the latest 06/13/2019. FINDINGS: The superior mediastinal structures are midline. The cardiac silhouette is unremarkable in size, shape, and position. The diaphragmatic surfaces of the lungs are regular, and the costophrenic angles are clear. The pulmonary paulson are clear. The imaged osseous structures are intact. IMPRESSION: There is no acute cardiopulmonary disease. No significant change. Electronically Signed by Tobi Castillo DO 08/13/2019 08:39 A
== END ==
LOC: M WUC 14:36
PROVIDERS: ATTEND Physician Assistant
DX: R06.02 Shortness of breath (principal); J02.9 Acute pharyngitis, unspecified

== ENCOUNTER → 2019-10-11 | Outpatient (REF) | payer OTHER, MEDICAID ==
[2019-10-11 12:38] LABS: HEMATOCRIT 33.6 % (36.0-47.0); HEMOGLOBIN 8.9 g/dl (12.0-15.5); MEAN CORPUSCULAR HEMOGLOBIN 17.9 pg (27.0-33.0); MEAN CORPUSCULAR HGB CONC 26.5 g/dl (32.0-36.5); MEAN CORPUSCULAR VOLUME 67.5 fl (80.0-96.0); PLATELET COUNT, AUTOMATED 557 10^3/uL (150-450); RED BLOOD COUNT 4.98 10^6/uL (4.00-5.40); WHITE BLOOD COUNT 18.6 10^3/uL (4.0-10.0)
[2019-10-11 12:42] LABS: ALBUMIN 3.6 GM/DL (3.2-5.2); ALT/SGPT 22 U/L (12-78); BILIRUBIN,TOTAL 0.5 MG/DL (0.2-1.0); BLOOD UREA NITROGEN 8 MG/DL (7-18); CARBON DIOXIDE LEVEL 30 MEQ/L (21-32); CHLORIDE LEVEL 101 MEQ/L (98-107); CHOLESTEROL LEVEL 195 MG/DL (<200); CHOLESTEROL RISK RATIO 2.954 (<5); CREATININE FOR GFR 0.71 MG/DL (0.55-1.30); GLOMERULAR FILTRATION RATE > 60.0 (>58); GLUCOSE, FASTING 85 MG/DL (70-100); HDL CHOLESTEROL 66 MG/DL (>40); LDL CHOLESTEROL 113 MG/DL (<100); NON-HDL-C 129 MG/DL; SODIUM LEVEL 137 MEQ/L (136-145); TOTAL PROTEIN 7.1 GM/DL (6.4-8.2); TRIGLYCERIDES LEVEL 81 MG/DL (<150)
[2019-10-11 12:46] LABS: TOTAL 25(OH) VITAMIN D 21.2 NG/ML (30.0-100.0)
[2019-10-11 13:26] LABS: HEMOGLOBIN A1c 7.3 %
[2019-10-11 13:52] LABS: EOSINOPHILS 1 % (0-3); LYMPHOCYTES 16 % (16-44); MONOCYTES 7 % (0-5); NEUTROPHILS 76 % (28-66); PLATELET ESTIMATE INCREASED (NORMAL)
[2019-10-11 13:53] LABS: MICROCYTOSIS 3+; OVALOCYTES 1+; POIKILOCYTOSIS 1+
== END ==
LOC: M LAB REF 11:42
PROVIDERS: ATTEND Nurse Practitioner Family
DX: D50.8 Other iron deficiency anemias (principal); D64.9 Anemia, unspecified; E11.9 Type 2 diabetes mellitus without complications; Z13.9 Encounter for screening, unspecified; E55.9 Vitamin D deficiency, unspecified; J45.40 Moderate persistent asthma, uncomplicated

== ENCOUNTER → 2019-11-20 | Outpatient (REF) | payer OTHER, MEDICAID ==
[2020-01-06 21:11] LABS: BASO # 0.1 10^3/uL (0.0-0.2); BASO % 0.7 % (0.0-1.0); EOS # 0.8 10^3/uL (0.0-0.5); EOS % 4.6 % (0.0-3.0); HEMOGLOBIN 8.6 g/dl (12.0-15.5); LYMPH # 2.8 10^3/uL (1.5-5.0); LYMPH % 16.5 % (24.0-44.0); MEAN CORPUSCULAR HEMOGLOBIN 17.9 pg (27.0-33.0); MEAN CORPUSCULAR HGB CONC 26.1 g/dl (32.0-36.5); MEAN CORPUSCULAR VOLUME 68.8 fl (80.0-96.0); MONO % 5.7 % (0.0-5.0); NEUTROPHILS # 12.2 10^3/uL (1.5-8.5); PLATELET COUNT, AUTOMATED 472 10^3/uL (150-450)
[2020-01-15 23:53] LABS: ALBUMIN 3.8 GM/DL (3.2-5.2); ALT/SGPT 25 U/L (12-78); BILIRUBIN,TOTAL 0.3 MG/DL (0.2-1.0); BLOOD UREA NITROGEN 11 MG/DL (7-18); CALCIUM LEVEL 8.7 MG/DL (8.5-10.1); CARBON DIOXIDE LEVEL 29 MEQ/L (21-32); CHLORIDE LEVEL 106 MEQ/L (98-107); CREATININE FOR GFR 0.91 MG/DL (0.55-1.30); GLOMERULAR FILTRATION RATE > 60.0 (>58); GLUCOSE, FASTING 165 MG/DL (70-100); LIPASE 267 U/L (73-393); POTASSIUM SERUM 4.3 MEQ/L (3.5-5.1); SODIUM LEVEL 140 MEQ/L (136-145); TOTAL PROTEIN 6.8 GM/DL (6.4-8.2)
== END ==
LOC: M LABWUC 12:36
PROVIDERS: ATTEND Physician Assistant
DX: R10.811 Right upper quadrant abdominal tenderness (principal)

== ENCOUNTER → 2019-11-24 | Outpatient (REF) | payer OTHER, MEDICAID ==
[2019-11-24 19:47] LABS: BASO # 0.1 10^3/uL (0.0-0.2); BASO % 0.5 % (0.0-1.0); EOS # 0.3 10^3/uL (0.0-0.5); EOS % 1.6 % (0.0-3.0); HEMATOCRIT 33.9 % (36.0-47.0); HEMOGLOBIN 8.7 g/dl (12.0-15.5); LYMPH # 1.4 10^3/uL (1.5-5.0); MEAN CORPUSCULAR HEMOGLOBIN 17.6 pg (27.0-33.0); MEAN CORPUSCULAR HGB CONC 25.7 g/dl (32.0-36.5); MEAN CORPUSCULAR VOLUME 68.8 fl (80.0-96.0); MONO # 0.7 10^3/uL (0.0-0.8); NEUTROPHILS # 14.6 10^3/uL (1.5-8.5); NEUTROPHILS % 85.4 % (36.0-66.0); PLATELET COUNT, AUTOMATED 508 10^3/uL (150-450); RED BLOOD COUNT 4.93 10^6/uL (4.00-5.40); WHITE BLOOD COUNT 17.1 10^3/uL (4.0-10.0)
[2019-11-24 20:05] LABS: ALBUMIN 3.6 GM/DL (3.2-5.2); ALT/SGPT 27 U/L (12-78); BILIRUBIN,TOTAL 0.4 MG/DL (0.2-1.0); BLOOD UREA NITROGEN 9 MG/DL (7-18); CALCIUM LEVEL 8.8 MG/DL (8.5-10.1); CARBON DIOXIDE LEVEL 28 MEQ/L (21-32); CHLORIDE LEVEL 102 MEQ/L (98-107); CREATININE FOR GFR 0.71 MG/DL (0.55-1.30); FERRITIN 5 NG/ML (8-252); FOLATE 4.3 NG/ML (>5.4); GLOMERULAR FILTRATION RATE > 60.0 (>58); GLUCOSE, FASTING 125 MG/DL (70-100); IRON (FE) 172 UG/DL (50-170); POTASSIUM SERUM 3.9 MEQ/L (3.5-5.1); SODIUM LEVEL 136 MEQ/L (136-145); TOTAL PROTEIN 7.2 GM/DL (6.4-8.2); VITAMIN B12 LEVEL 405 PG/ML (247-911)
== END ==
LOC: M LAB REF 17:43
PROVIDERS: ATTEND Nurse Practitioner Family
DX: D64.9 Anemia, unspecified (principal)

== ENCOUNTER → 2019-12-27 | Outpatient (CLI) | payer OTHER ==
--- NOTE | 2020-01-05 11:01 | REP ---
RIGHT SHOULDER SERIES CLINICAL: Right shoulder pain. TECHNIQUE: Internal rotation, external rotation, and Y view of the right shoulder. FINDINGS: Subtle cortical irregularity of the acromioclavicular joint is appreciated. Subacromial space is normal on internal view. No evidence for acute fracture or dislocation. Surrounding soft tissues are normal. IMPRESSION: Essentially age-related changes primarily noted at the acromioclavicular joint. MTDD
== END ==
LOC: M WUC 13:23
PROVIDERS: ATTEND Nurse Practitioner Family
DX: M25.511 Pain in right shoulder (principal)

== ENCOUNTER → 2020-02-01 | Outpatient (REF) | payer OTHER, MEDICAID ==
[2020-02-01 11:58] LABS: BASO # 0.1 10^3/uL (0.0-0.2); EOS # 0.8 10^3/uL (0.0-0.5); EOS % 8.4 % (0.0-3.0); HEMATOCRIT 37.2 % (36.0-47.0); HEMOGLOBIN 9.9 g/dl (12.0-15.5); LYMPH # 1.8 10^3/uL (1.5-5.0); LYMPH % 18.1 % (24.0-44.0); MEAN CORPUSCULAR HEMOGLOBIN 19.9 pg (27.0-33.0); MEAN CORPUSCULAR HGB CONC 26.6 g/dl (32.0-36.5); MEAN CORPUSCULAR VOLUME 74.8 fl (80.0-96.0); MONO # 0.6 10^3/uL (0.0-0.8); MONO % 6.5 % (0.0-5.0); NEUTROPHILS # 6.3 10^3/uL (1.5-8.5); NEUTROPHILS % 65.6 % (36.0-66.0); PLATELET COUNT, AUTOMATED 402 10^3/uL (150-450); RED BLOOD COUNT 4.97 10^6/uL (4.00-5.40); WHITE BLOOD COUNT 9.7 10^3/uL (4.0-10.0)
[2020-02-01 12:11] LABS: HEMOGLOBIN A1c 6.5 %
[2020-02-01 12:37] LABS: ALBUMIN 3.1 GM/DL (3.2-5.2); ALT/SGPT 27 U/L (12-78); BILIRUBIN,TOTAL 0.3 MG/DL (0.2-1.0); BLOOD UREA NITROGEN 9 MG/DL (7-18); CALCIUM LEVEL 8.6 MG/DL (8.5-10.1); CARBON DIOXIDE LEVEL 28 MEQ/L (21-32); CHLORIDE LEVEL 104 MEQ/L (98-107); CHOLESTEROL LEVEL 160 MG/DL (<200); CREATININE FOR GFR 0.65 MG/DL (0.55-1.30); FERRITIN 13 NG/ML (8-252); GLOMERULAR FILTRATION RATE > 60.0 (>58); GLUCOSE, FASTING 144 MG/DL (70-100); HDL CHOLESTEROL 50 MG/DL (>40); IRON (FE) 19 UG/DL (50-170); LDL CHOLESTEROL 86 MG/DL (<100); NON-HDL-C 110 MG/DL; POTASSIUM SERUM 3.9 MEQ/L (3.5-5.1); SODIUM LEVEL 139 MEQ/L (136-145); TOTAL 25(OH) VITAMIN D 21.7 NG/ML (30.0-100.0); TOTAL PROTEIN 6.8 GM/DL (6.4-8.2); TRIGLYCERIDES LEVEL 119 MG/DL (<150); VITAMIN B12 LEVEL 254 PG/ML
== END ==
LOC: M LAB REF 11:29
PROVIDERS: ATTEND Nurse Practitioner Family
DX: R20.2 Paresthesia of skin (principal); E11.9 Type 2 diabetes mellitus without complications; Z13.9 Encounter for screening, unspecified; E66.01 Morbid (severe) obesity due to excess calories; E55.9 Vitamin D deficiency, unspecified; E61.1 Iron deficiency; R03.0 Elevated blood-pressure reading, without diagnosis of hypertension

== ENCOUNTER 2021-02-12 17:31 | Emergency (ER) | payer OTHER, MEDICAID ==
[~2021-02-12] VITALS: Ht 149.9 cm; Wt 94.8 kg
[~2021-02-12 17:31] MED LIST changes: +MONT10TA10 PO; -MONT10TA4 PO
--- OUTSIDE RECORDS SUMMARY | 2021-02-12 17:34 | CCD ---
Author Author [facility] Organization [facility] Address Unknown Phone Unavailable Care Team Providers Care Die Barber Name Role Phone Arceo, Vero CUSTOM DESIGNER Unavailable Unavailable Arceo, Vero CUSTOM DESIGNER Unavailable Unavailable Arceo, Vero CUSTOM DESIGNER Unavailable Unavailable Arceo, Vero CUSTOM DESIGNER Unavailable Unavailable Arceo, Vero CUSTOM DESIGNER Unavailable Unavailable Arceo, Vero CUSTOM DESIGNER Unavailable Unavailable Arceo, Vero CUSTOM DESIGNER Unavailable Unavailable Arceo, Vero CUSTOM DESIGNER Unavailable Unavailable Arceo, Vero CUSTOM DESIGNER Unavailable Unavailable Arceo, Vero CUSTOM DESIGNER Unavailable Unavailable Arceo, Vero CUSTOM DESIGNER Unavailable Unavailable Arceo, Evro CUSTOM DESIGNER Unavailable Unavailable Arceo, Vero CUSTOM DESIGNER Unavailable Unavailable Amol Renee MD Unavailable Unavailable Amol Renee MD Unavailable Unavailable Amol Renee MD Unavailable Unavailable Amol Renee MD Unavailable Unavailable Amol Renee MD Unavailable Unavailable Amol Renee MD Unavailable Unavailable Amol Renee MD Unavailable Unavailable Amol Renee MD Unavailable Unavailable Amol Renee MD Unavailable Unavailable Amol Renee MD Unavailable Unavailable Amol Renee MD Unavailable Unavailable Amol Renee MD Unavailable Unavailable Amol Renee MD Unavailable Unavailable Amol Renee MD Unavailable Unavailable Amol Renee MD Unavailable Unavailable Amol Renee MD Unavailable Unavailable Amol Renee MD Unavailable Unavailable Amol Renee MD Unavailable Unavailable Víctor, Amol MAGUIRE Unavailable Unavailable Víctor, Amol MAGUIRE Unavailable Unavailable Víctor, Amol MAGUIRE Unavailable Unavailable Víctor, Amol MAGUIRE Unavailable Unavailable Víctor, Amol MAGUIRE Unavailable Unavailable Víctor, Amol MAGUIRE Unavailable Unavailable Víctor, Amol MAGUIRE Unavailable Unavailable Víctor, Amol MAGUIRE Unavailable Unavailable Víctor, Amol MAGUIRE Unavailable Unavailable Víctor, Amol MAGUIRE Unavailable Unavailable Víctor, Amol MAGUIRE Unavailable Unavailable Víctor, Amol MAGUIRE Unavailable Unavailable Víctor, Amol MAGUIRE Unavailable Unavailable Víctor, Amol MAGUIRE Unavailable Unavailable Víctor, Amol MAGUIRE Unavailable Unavailable Víctor, Amol MAGUIRE Unavailable Unavailable Víctor, Amol MAGUIRE Unavailable Unavailable Víctor, Amol MAGUIRE Unavailable Unavailable Víctor, Amol MAGUIRE Unavailable Unavailable Víctor, Amol MAGUIRE Unavailable Unavailable Víctor, Amol MAGUIRE Unavailable Unavailable Víctor, Amol MAGUIRE Unavailable Unavailable Víctor, Amol MAGUIRE Unavailable Unavailable Víctor, Amol MAGUIRE Unavailable Unavailable Víctor, Amol MAGUIRE Unavailable Unavailable Víctor, Amol MAGUIRE Unavailable Unavailable Víctor, Amol MAGUIRE Unavailable Unavailable Alyse Caballero INSPECTOR ELECTROMECHANICAL INSPECTOR ELECTROMECHANICAL Unavailable Unavailable Warren WIGGINS Unavailable Unavailable Mollison, Debi Thao MD Unavailable Unavailable Mollison, Debi Thao MD Unavailable Unavailable Mollison, Debi Thao MD Unavailable Unavailable Mollison, Debi Thao MD Unavailable Unavailable Mollison, Debi Thao MD Unavailable Unavailable Mollison, Debi Thao MD Unavailable Unavailable Mollison, Debi Thao MD Unavailable Unavailable Mollison, Debi Thao MD Unavailable Unavailable Mollison, Debi Thao MD Unavailable Unavailable Mollison, Debi Thao MD Unavailable Unavailable Mollison, Debi Thao MD Unavailable Unavailable Mollison, Debi Thao MD Unavailable Unavailable Mollison, Debi Thao MD Unavailable Unavailable Mollison, Debi Thao MD Unavailable Unavailable Mollison, Debi Thao MD Unavailable Unavailable Mollison, Dbei Thao MD Unavailable Unavailable Mollison, Debi Thao MD Unavailable Unavailable MollisonDebi MD Unavailable Unavailable MollisonDebi MD Unavailable Unavailable MollisonDebi MD Unavailable Unavailable MollisonDebi MD Unavailable Unavailable Mollison, Debi Thao MD Unavailable Unavailable Mollison, Debi Thao MD Unavailable Unavailable Mollison, Debi Thao MD Unavailable Unavailable Mollison, Debi Thao MD Unavailable Unavailable Mollison, Debi Thao MD Unavailable Unavailable Mollison, Debi Thao MD Unavailable Unavailable Mollison, Debi Thao MD Unavailable Unavailable Mollison, Debi Thao MD Unavailable Unavailable Mollison, Debi Thao MD Unavailable Unavailable Loreto Garces Unavailable Unavailable Garces, Loreto Genna PA Unavailable Unavailable Garces, Loreto Genna PA Unavailable Unavailable Garces, Loreto Genna PA Unavailable Unavailable Garces, Loreto Genna PA Unavailable Unavailable Garces, Loreto Genna PA Unavailable Unavailable Garces, Loreto Genna PA Unavailable Unavailable Garces, Loreto Genna PA Unavailable Unavailable Garces, Loreto Genna PA Unavailable Unavailable Garces, Loreto Genna PA Unavailable Unavailable Federico, A Alyse INSPECTOR ELECTROMECHANICAL Unavailable Unavailable Glen White, A Alyse INSPECTOR ELECTROMECHANICAL Unavailable Unavailable Glen White, A Alyse INSPECTOR ELECTROMECHANICAL Unavailable Unavailable Glen White, A Alyse INSPECTOR ELECTROMECHANICAL Unavailable Unavailable Glen White, A Alyse INSPECTOR ELECTROMECHANICAL Unavailable Unavailable Glen White, A Alyse INSPECTOR ELECTROMECHANICAL Unavailable Unavailable Glen White, A Alyse INSPECTOR ELECTROMECHANICAL Unavailable Unavailable Glen White, A Alyse INSPECTOR ELECTROMECHANICAL Unavailable Unavailable Glen White, A Alyse INSPECTOR ELECTROMECHANICAL Unavailable Unavailable Glen White, A Alyse INSPECTOR ELECTROMECHANICAL Unavailable Unavailable Glen White, A Alyse INSPECTOR ELECTROMECHANICAL Unavailable Unavailable Glen White, A Alyse INSPECTOR ELECTROMECHANICAL Unavailable Unavailable Glen White, A Alyse INSPECTOR ELECTROMECHANICAL Unavailable Unavailable Glen White, A Alyse INSPECTOR ELECTROMECHANICAL Unavailable Unavailable Glen White, A Alyse INSPECTOR ELECTROMECHANICAL Unavailable Unavailable Glen White, A Alyse INSPECTOR ELECTROMECHANICAL Unavailable Unavailable Glen White, A Alyse INSPECTOR ELECTROMECHANICAL Unavailable Unavailable Glen White, A Alyse INSPECTOR ELECTROMECHANICAL Unavailable Unavailable Glen White, A Alyse INSPECTOR ELECTROMECHANICAL Unavailable Unavailable Glen White, A Alyse INSPECTOR ELECTROMECHANICAL Unavailable Unavailable Glen White, A Alyse INSPECTOR ELECTROMECHANICAL Unavailable Unavailable Glen White, A Alyse INSPECTOR ELECTROMECHANICAL Unavailable Unavailable Glen White, A Alyse INSPECTOR ELECTROMECHANICAL Unavailable Unavailable Glen White, A Alyse INSPECTOR ELECTROMECHANICAL Unavailable Unavailable Glen White, A Alyse INSPECTOR ELECTROMECHANICAL Unavailable Unavailable Glen White, A Alyse INSPECTOR ELECTROMECHANICAL Unavailable Unavailable Glen White, A Alyse INSPECTOR ELECTROMECHANICAL Unavailable Unavailable Glen White, A Alyse INSPECTOR ELECTROMECHANICAL Unavailable Unavailable Glen White, A Alyse INSPECTOR ELECTROMECHANICAL Unavailable Unavailable Glen White, A Alyse INSPECTOR ELECTROMECHANICAL Unavailable Unavailable Glen White, A Alyse INSPECTOR ELECTROMECHANICAL Unavailable Unavailable Tomás VARGAS MD Unavailable Unavailable Tomás VARGAS MD Unavailable Unavailable Tomás VARGAS MD Unavailable Unavailable Tomás VARGAS MD Unavailable Unavailable Tomás VARGAS MD Unavailable Unavailable Tomás VARGAS MD Unavailable Unavailable Tomás VARGAS MD Unavailable Unavailable Tomás VARGAS MD Unavailable Unavailable MARZENA ARIANNA PA Unavailable Unavailable MARZENA ARIANNA PA Unavailable Unavailable MARZENA, ARIANNA PA Unavailable Unavailable MARZENA, ARIANNA PA Unavailable Unavailable MARZENA, ARIANNA PA Unavailable Unavailable MARZENA, ARIANNA PA Unavailable Unavailable MARZENA, ARIANNA PA Unavailable Unavailable MARZENA, ARIANNA PA Unavailable Unavailable MARZENA, ARIANNA PA Unavailable Unavailable MARZENA, ARIANNA PA Unavailable Unavailable MARZENA, ARIANNA PA Unavailable Unavailable MARZENA, ARIANNA PA Unavailable Unavailable MARZENA, ARIANNA PA Unavailable Unavailable MARZENA, ARIANNA PA Unavailable Unavailable MARZENA, ARIANNA PA Unavailable Unavailable MARZENA, ARIANNA PA Unavailable Unavailable MARZENA, ARIANNA PA Unavailable Unavailable MARZENA, ARIANNA PA Unavailable Unavailable MARZENA, ARIANNA PA Unavailable Unavailable MARZENA, ARIANNA PA Unavailable Unavailable MARZENA, ARIANNA PA Unavailable Unavailable MARZENA, ARIANNA PA Unavailable Unavailable MARZENA, ARIANNA PA Unavailable Unavailable MARZENA, ARIANNA PA Unavailable Unavailable MARZENA, ARIANNA PA Unavailable Unavailable MARZENA, ARIANNA PA Unavailable Unavailable MARZENA, ARIANNA PA Unavailable Unavailable MARZENA, ARIANNA PA Unavailable Unavailable MARZENA, ARIANNA PA Unavailable Unavailable MARZENA, ARIANNA PA Unavailable Unavailable MARZENA, ARIANNA PA Unavailable Unavailable MARZENA, ARIANNA PA Unavailable Unavailable MARZENA, ARIANNA PA Unavailable Unavailable MARZENA, ARIANNA PA Unavailable Unavailable MARZENA, ARIANNA PA Unavailable Unavailable MARZENA, ARIANNA PA Unavailable Unavailable Federico, A Alyse INSPECTOR ELECTROMECHANICAL Unavailable Unavailable Federico, A Alyse INSPECTOR ELECTROMECHANICAL Unavailable Unavailable Federico, A Alyse INSPECTOR ELECTROMECHANICAL Unavailable Unavailable Federico, A Alyse INSPECTOR ELECTROMECHANICAL Unavailable Unavailable Federico, A Alyse INSPECTOR ELECTROMECHANICAL Unavailable Unavailable Federico, A Alyse INSPECTOR ELECTROMECHANICAL Unavailable Unavailable Federico, A Alyse INSPECTOR ELECTROMECHANICAL Unavailable Unavailable Federico, A Alyse INSPECTOR ELECTROMECHANICAL Unavailable Unavailable Federico, A Alyse INSPECTOR ELECTROMECHANICAL Unavailable Unavailable Federico, A Alyse INSPECTOR ELECTROMECHANICAL Unavailable Unavailable Federico, A Alyse INSPECTOR ELECTROMECHANICAL Unavailable Unavailable Federico, A Alyse INSPECTOR ELECTROMECHANICAL Unavailable Unavailable Federico, A Alyse INSPECTOR ELECTROMECHANICAL Unavailable Unavailable Federico, A Alyse INSPECTOR ELECTROMECHANICAL Unavailable Unavailable Federico, A Alyse INSPECTOR ELECTROMECHANICAL Unavailable Unavailable Federico, A Alyse INSPECTOR ELECTROMECHANICAL Unavailable Unavailable Federico, A Alyse INSPECTOR ELECTROMECHANICAL Unavailable Unavailable Federico, A Alyse INSPECTOR ELECTROMECHANICAL Unavailable Unavailable Federico, A Alyse INSPECTOR ELECTROMECHANICAL Unavailable Unavailable Federico, A Alyse INSPECTOR ELECTROMECHANICAL Unavailable Unavailable Federico, A Alyse INSPECTOR ELECTROMECHANICAL Unavailable Unavailable Federico, A Alyse INSPECTOR ELECTROMECHANICAL Unavailable Unavailable Federico, A Alyse INSPECTOR ELECTROMECHANICAL Unavailable Unavailable Federico, A Alyse INSPECTOR ELECTROMECHANICAL Unavailable Unavailable Federico, A Alyse INSPECTOR ELECTROMECHANICAL Unavailable Unavailable Federico, A Alyse INSPECTOR ELECTROMECHANICAL Unavailable Unavailable Federico, A Alyse INSPECTOR ELECTROMECHANICAL Unavailable Unavailable Federico, A Alyse INSPECTOR ELECTROMECHANICAL Unavailable Unavailable Federico, A Alyse INSPECTOR ELECTROMECHANICAL Unavailable Unavailable Federico, A Alyse INSPECTOR ELECTROMECHANICAL Unavailable Unavailable Federico, A Alyse INSPECTOR ELECTROMECHANICAL Unavailable Unavailable MUKESH MURPHY [id number] Unavailable Unavailable Re-disclosure Warning The records that you are about to access may contain information from federally-assisted alcohol or drug abuse programs. If such information is present, then the following federally mandated warning applies: This information has been disclosed to you from records protected by federal confidentiality rules (42 CFR part 2). The federal rules prohibit you from making any further disclosure of this information unless further disclosure is expressly permitted by the written consent of the person to whom it pertains or as otherwise permitted by 42 CFR part 2. A general authorization for the release of medical or other information is NOT sufficient for this purpose. The Federal rules restrict any use of the information to criminally investigate or prosecute any alcohol or drug abuse patient.The records that you are about to access may contain highly sensitive health information, the redisclosure of which is protected by Article 27-F of the [facility] Public Health law. If you continue you may have access to information: Regarding HIV / AIDS; Provided by facilities licensed or operated by the [facility] Office of Mental Health; or Provided by the [facility] Office for People With Developmental Disabilities. If such information is present, then the following [facility] mandated warning applies: This information has been disclosed to you from confidential records which are protected by state law. State law prohibits you from making any further disclosure of this information without the specific written consent of the person to whom it pertains, or as otherwise permitted by law. Any unauthorized further disclosure in violation of state law may result in a fine or fdc sentence or both. A general authorization for the release of medical or other information is NOT sufficient authorization for further disc losure. Family History Family Member Name Family Member Gender Family Member Status Date o f Status Description Data Source(s) Unknown Male Problem [facility] ([facility], ) () Encounters Encounter Providers Location Date Indications Data Source(s ) Outpatient 03/12/2021 12:00:00 AM [facility] Outpatient Attender: DIOGENES VARGAS MDAttender: Amol guardado MD 03/12/2021 12:00:00 AM [facility] Outpatient Referrer: MUKESH MURPHY [id number] 07/12/2020 02:07:25 PM EDT - 07/12/2020 11:59:00 PM EDT Dyspnea, unspecified [facility] Dyspnea, unspecified Outpatient Attender: DIOGENES VARGAS MD 07/12/2020 12:00 :00 AM EDT [facility] Outpatient Attender: ARIANNA ramírez 05/01/2020 02:00:00 PM EST [facility] ([facility]) Outpatient Attender: DIOGENES VARGAS MD [id number] 04/29/2019 12:00:00 AM [facility] Outpatient Attender: ELINA Temple: DIOGENES MENDEZ MD 02/28/2020 12:00:00 AM EST Mild intermittent asthma, uncomplicated [facility] Mild intermittent asthma, uncomplicated Outpatient Attender: Genna harpy 02/21/2020 04:40:00 PM EST [facility] ([facility]) JUNIOR Obrien-BC: [address] [place] [id number], Ph. Attender: Alyse PACHECO [facility] Medical 02/01/2020 12:00:00 AM EDT [facility] ([facility]) Outpatient Attender: JUNIOR BOUDREAUX 01/19/2020 12:28:02 P M EDT [facility] Outpatient Attender: Alyse BOUDREAUX 01/19/2020 12:2 7:01 PM EDT [facility] Outpatient Attender: JUNIOR BOUDREAUX 01/16/2020 11:20:02 A M EDT [facility] Outpatient Attender: JUNIOR BOUDREAUX 01/16/2020 10:00:02 A M EDT [facility] Outpatient Attender: JUNIOR Caballero [facility] 01/15/2020 12:16:00 P M EDT [facility] Outpatient Attender: Master Magdaleno/Zuleima/Huey/Brittaney oliver 01/10/2020 09:00:00 AM EDT [facility] ([facility]) Outpatient Attender: Alyse Caballero [facility] 01/06/2020 12:4 0:01 PM EDT [facility] Outpatient Attender: Alyse Caballero [facility] 01/02/2020 06:5 7:01 PM EDT [facility] Outpatient Attender: JUNIOR Caballero [facility] 01/02/2020 04:40:00 P M EDT [facility] Outpatient Attender: JUNIOR Caballero [facility] 12/29/2019 09:41:02 A M EDT [facility] Outpatient Attender: Vero angel 12/27/2019 01:20:00 PM EDT [facility] ([facility]) Immunizations Vaccine Date Status Description Data Source(s) COVID-19 VACCINE Pfizer 12/14/2020 12:00:00 AM EDT completed [facility] Vaccine Series Complete: YESThis Data wa s Submitted to [facility] Via [facility]. COVID-19 VACC, MRNA(PFIZER)/PF 11/16/2020 12:00:00 AM EDT completed [facility] COVID-19 VACCINE Pfizer 11/16/2020 12:00:00 AM EDT completed [facility] Vaccine Series Complete: NOThis Data was Submitted to [facility] Via [employer]. Medications Medication Brand Name Start Date Product Form Dose Route Admi nistrative Instructions Pharmacy Instructions Status Indications Reaction Description Data Source(s) Methylprednisolone 4 MG Oral Tablet Methylprednisolone 04/06 12:00:00 AM EST ORAL active [facility] ([facility]) albuterol (PROVENTIL HFA) inhaler 2 puff 9424-6373-99 02/28/2020 01:45:00 PM EST 2 {puff} Inhalation active Intermitt ent asthma, unspecified asthma severity, unspecified whether complicated 2 puff, Inha lation, Once RT, 11/25/20 at 1345, For 1 dose
Shake the inhaler well before each spray.
[facility] Intermittent asthma, unspecified asthma severity, unspecified whether complicated Medication administered onsite cefdinir 300 MG Oral Capsule Cefdinir 02/21/2020 12:00:00 AM EST ORAL completed [facility] ([facility]) Prednisone 20 MG Oral Tablet Prednisone 12/27/2019 12:00:00 AM EDT completed [facility] ([facility]) Trelegy Ellipta 100-62.5-25 MCG/INH Aero errol Powder Breath Activated (Qpyxbwfondf-Oqkgvvefd-Cdkqrt) 7602-5979-14 11/22/2019 12:00:00 AM EDT 1 {puff} Inhalation active Intermittent as thma, unspecified asthma severity, unspecified whether complicated Inhale 1 puff into the lungs daily [facility] Intermittent asthma, unspecified asthma severity, unspecified whether complicated Albuterol Sulfate HFA 108 (90 Base) MCG/ ACT Inhalation Aerosol Solution (PROVENTIL HFA) 4821-7609-40 11/22/2019 12:00:00 AM EDT 2 {puff} Inha lation active Inhale 2 puffs i nto the lungs every 4 (four) hours as needed for Wheezing or Shortness of Breath [facility] Insurance Providers Payer name Policy type / Coverage type Policy ID Covered republican ID Covered republican's relationship to curry Policy Curry Plan Information Medicaid S [id number] S [id number] Managed Care [facility] P [id number] S [id number] [facility] [id number] SP [id number] Managed Care [facility] P [id number] S [id number] [facility] [id number] SP [id number] Medicaid S [id number] S [id number] Managed Care - [facility] Community Plan P [id number] S [id number] [facility] P [id number] S [id number] [facility] [id number] SP [id number] [facility] MEDICAID [id number] Kalyn [id number] Medicaid S [id number] S [id number] Managed Care [facility] Community Plan P [id number] S [id number] [facility] I [id number] Self [id number] Medicaid S [id number] S [id number] Medicaid S [id number] S [id number] [facility](MCAID) O [id number] S [id number] EMEDNY [id number] SP [id number] [facility] Health Maintenance Organization (HMO) [id number] Self [id number] [facility] Community [id number] Preferred Provider Organization (PPO) [id number] [facility] MEDICAID PI PI MEDICAID [id number] [facility] Yazmin/[facility] Health Maintenance Organization (HMO) [id number] Self [id number] MEDICAID M [id number] S [id number] [facility] [id number] SP [id number] [facility] [id number] SP [id number] [facility] [id number] SP [id number] [facility] XIX [id number] 18 [id number] Managed Care - [facility] P [id number] S [id number] Problems, Conditions, and Diagnoses Code Display Name Description Problem Type Effective Dates Data Source(s) R06.00 Dyspnea, unspecified Dyspnea, unspecified Diagnosis 07/12/2020 02:05:00 PM EDT [facility] J45.20 Mild intermittent asthma, uncomplicated Mild intermittent asthma, uncomplicated Diagnosis 02/28/2020 01:13:57 PM EST [facility] V05.9 Vaccination Vaccination 01/19/2020 12:26:41 PM EDT [facility] V04.81 Needs influenza immunization Needs influenza immunizat ion 01/16/2020 11:19:38 AM EDT [facility] 782.0 Paresthesia of hand Paresthesia of hand 020 11:19:38 AM EDT [facility] V76.12 Encounter for screening mammogram for ma lignant neoplasm of breast Encounter for screening mammogram for malignant neoplasm of breast 01/16/2020 11:19:38 AM EDT [facility] Surgeries/Procedures Procedure Description Date Indications Data Source(s) XR CHEST FRONTAL AND LATERAL 17707 <td>XR CHEST FRONTA L AND LATERAL 87575</td><td>Routine</td><td>07/12/2020 2:17 PM EDT</td><td> Dyspnea on exertion</td><td> </td> 07/12/2020 02:17:28 PM EDT Dyspnea on exertion [facility] Dyspnea on exertion RADEX WRIST 2 VIEWS 01/24/2020 12:00:00 AM EDT [facility] ([facility]) RADEX WRIST 2 VIEWS 01/24/2020 12:00:00 AM EDT [facility] ([facility]) Inject/Drain Arthrocentesis Major Joint/Bursa/Ganglion Cyst 01/10/2020 12:00:00 AM EDT [facility] ([facility]) Results ID Date Data Source [id number] 12/27/2020 12:56:20 PM EDT [facility] Name Value Range Interpretation Code Description Data Elaine rce(s) Supporting Document(s) Progress Note [facility] QVJVSl3oLrLWNfYz08/WBFoeQRZdo7IaHEdeBLk2NCxqECLhB4LhFDK0zQ6gXHA5GLhKXwXiQtWkXYF7 lbm [file] AgICAgICAgICAgICAgICAgICAgICAgICAgICAgICAg ICAgICAgICAgICAgICAgICAgDQogICAgICAgICAgICAgICAgICAgICAgICAgICAgICAgICAgICAgICAg ICAgICAgICAgICAgICAgICAgICAgICAgICAgICAgICAgICAgICAgICAgICAgICAgICAgICAgICAgICAg DQogICAgICAgICAgICAgICAgICAgICAgICAgICAgIC AgICAgICAgICAgICAgICAgICAgICAgICAgICAgICAgICAgICAgICAgICAgICAgICAgICAgICAgICAgIC AgICAgICAgICAgDQogICAgICAgICAgICAgICAgICAgICAgICAgICAgICAgICAgICAgICAgICAgICAgIC AgICAgICAgICAgICAgICAgICAgICAgICAgICAgICAg ICAgICAgICAgICAgICAgICAgICAgDQogICAgICAgICAgICAgICAgICAgICAgICAgICAgICAgICAgICAg ICAgICAgICAgICAgICAgICAgICAgICAgICAgICAgICAgICAgICAgICAgICAgICAgICAgICAgICAgICAg ICAgDQogICAgICAgICAgICAgICAgICAgICAgICAgIC AgICAgICAgICAgICAgICAgICAgICAgICAgICAgICAgICAgICAgICAgICAgICAgICAgICAgICAgICAgIC AgICAgICAgICAgICAgDQogICAgICAgICAgICAgICAgICAgICAgICAgICAgICAgICAgICAgICAgICAgIC AgICAgICAgICAgICAgICAgICAgICAgICAgICAgICAg ICAgICAgICAgICAgICAgICAgICAgICAgDQogICAgICAgICAgICAgICAgICAgICAgICAgICAgICAgICAg ICAgICAgICAgICAgICAgICAgICAgICAgICAgICAgICAgICAgICAgICAgICAgICAgICAgICAgICAgICAg ICAgICAgDQogICAgICAgICAgICAgICAgICAgICAgIC AgICAgICAgICAgICAgICAgICAgICAgICAgICAgICAgICAgICAgICAgICAgICAgICAgICAgICAgICAgIC AgICAgICAgICAgICAgICAgDQogICAgICAgICAgICAgICAgICAgICAgICAgICAgICAgICAgICAgICAgIC AgICAgICAgICAgICAgICAgICAgICAgICAgICAgICAg QCRlHXDzJBHnYCHmUQEmYSKuQXBpCHQlYZAmDOs8D4vuXARdBOMyAG3hALo9Zk6+YRjBXeMpQEZ8zsIw gM2RSC5rl6BeOEveEKAbr6GpFFf3TK4DMYVuOUjmGN8MDOmifh2WPYPiDQMdmCGKf9hrRwUvKXW8MZEi NafrXE9YURZhZ3hqulCgOLTvJZHLVP8XCbDiJ0BguD 94PFAXLe2+TJydiwZmBdtLQuO6ZQJml4RlLAc9ZN1ITKNeEpmkr7XkYVQmBHOCTHcoGO3LRKK6OGA5XX ToQg5RZRLaW619buOqCH2NKx4AZiYsWK2lyb2PXPWsHZRiZbvFNsu7QDmqPS1XwBTvBAuAzv4rohHhgq OEe4JwemXtbURQGDOjrGNhZ0C7o8ExVAqbQCFvRKrW KKT8VNEeXV1tBTXcBLZeSwZ7SMQSIE7ANBQhEMRwwGKbIANhAVCGZK8GMSlmWBH3WFGjtjJzxFVoILwz WV3NMURbrxYtPELoHEORQMw+Uy6EGL0df7QuJIzbKoWlYE8qgp4PZSzSTzBgI6L1vZIsS5J2XJawWf7L CALdOCOmOPSxDEDHVEtmLL4YAS1uutS9NS8PxWVjYT VwZOYigQTtBJt4M86zpAOmPChhUR7FMRA+Howie+Jn0WMRJpWTEfUHRuWzBbFTLXUfSgM3RuU5BMp3EsR8 IqBV46gDwoptDqDNhtEL9FNN4fWKKcZVWFAX0KuZIngX5dxqAbREHtOKOJZlDlK90mxVGfRUNnKBDmUD VhAl9LATDwV9HlgdRgvRugiyOaNZMaKKNVDH2UZTkr rxUmcGQtpEeuRD19rSueGP9MXi8FZsPdXS6qxg4QyHJoFy7IJZSfLq5SPBPzLSZrXINrUEJ0CHUgXgLi FLvbYCJjJXTzFCC9EVCcQALbLP6KGkXzDZPsFORuDMhjSYOuYBPuko0DSVOfBHFuZivjObAjCGUiZSBv IJmvRQEmFREkKMK9EFMeZWLjID5JLqXpXCDmZAXeRO hgJQAsVQLnxu8JJQJmPRNqDoRsHGSpOWEuVYZmLZhdOYJzHGAhChfjLYVmVIDuAO6YMaZdNPIjCLD3Gt VvVCDxYYIwjm1VYWAnQYRrMwD6IwFrLGOlGGIvEBoyQZMqWJT6GkV8BZDfOQVlDG9NZxTuLNXfENI6SP JwSKDrVRDqow7QIFBqNHMxOSs1PyYmQLYdOKBgXMon MHWqMLU2Hln5TVSeAPEwFZ3MZiHvVWKdPLJ5AjOoZXHsNNOzxs6XRZVdPTMuIpvoWeZjJBNfKDSlPXtc INQuRLT2PWB0LZCnWOXuXV1WIzUgOHflSYKVMmf9NCopD9n8KLSqOa5SO9Zck9YnRKQlQJTAQJxoOC7c emHrDJPoDy9SU1xKVhs3JhHqCXK0UpSdC5U3YAX9Xz ChNHFsXmBnRUIxRRPvOH5lDMpxKfVrSWYtNIK4HYhtWRDaJiS2JrZ0GgIpJRRvJUCiSpHsTA4BNc6RTl N3DOW3tMMoAn3BTyMcHe8JAUVBN7NCMm== ID Date Data Source [id number] 07/12/2020 04:35:50 PM EDT [facility] XR CHEST FRONTAL AND LATERAL [id number] RESULTInterpreted by:Simeon Garrido MDINDICATION: Dyspnea.TECHNIQUE: XR CHEST FRONTAL AND LATERAL [id number], 07/12/2020 2:10 PM, upright.COMPARISON: None available.FINDINGS: The trachea is mildly deviated to the left, at the level of the thoracic inlet, likely the result of enlargement of the right lobe of the thyroid gland. The caliber of the trachea is not compromised.I see no other abnormalities in the chest wall, mediastinum or pleural spaces. The lungs are clear.IMPRESSION:1. 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 Comparison to previous studies is recommended. The patency of the trachea is not compromised.2. Otherwise normal examination.This document has been electronically signed by Simeon Garrido MD on 07/12/2020 4:33 PM Name Value Range Interpretation Code Description Data Elaine rce(s) Supporting Document(s) ID Date Data Source [id number] 02/28/2020 02:16:21 PM EST [facility] Name Value Range Interpretation Code Description Data Elaine rce(s) Supporting Document(s) Progress Note [facility] XWUZKy3jXkVSCeJe36/UGYygKMJzo0ZnIRkpLCs5QGinXDYqK9SmJCF4hL5tHWD2WQbZJzVjFxMvYXU6 lbm EdXofKJxBcZAZwDxkWFcQdKYbvTqmanDJbBP7EaFW9MSIiL46vFIWeGLLyU9HyEEI4FUX+Pz8GLMZoiY VmVM5JHxoI4QsNa2o1QG5xyB8BVZYQDakZzBIuYgJOtFqRlB1xsu5NCq1VkdGN72deSPgv//2dyeH0sV zEDpVtwNqH+Ariella++9Sd2fclZHKfh/EDKgayJM9j/Mx [file] AwMDAwMzIxNSAwMDAwMCBuDQowMDAwMDAzNDExIDAw JHEnOT6HBdTqHRJhLVB9THHpGCJdPFNwac2QEZRkBEAgUZJ1WAJdPKGjOWDlAIcaGHDmPAC5MhJlLUJh RMFdID8RMkZmJTClXFO0LebvTPQeKJXqzp9WCYJiCUKnBdC3OnVcVALrMWWcUHghTCZqWWF7JaK3WRCg NQIrJA1QBqEjIEIzTRT9XUhfUILcOESrtz1SPBYeAG WxBxI1AYIjJHMqCZSsYZrnVWFuSCP0NaF1LIDoAPCzLZ7UWuAiJMRuBKa5VVXbXUDsQSMinr3JUFCyAC IpDBC2RiSmDOOqIGInGMnhMZIrEWV7XTTuKKXbGIHpGK2BAdNsTTIyJRrpUtSuQUExDCOadu8EiRDecV fqnk1YDRjVNc6CoUwyFQEaCTedRj4yuLOtIVDeHWIH Bb2TpmFbLYWyIKRQKZwmIYJzMNicMVF3PuYyIvBlSVH2BNZ4CvExQXd6Xkn1EmT6MBBjUuF5PGExTGR3 EvGxUVQ2ZWugHOjgVRFhHiw4Ztq6BOl0PDM+VB6mNJa+Bd9Vj2XegpN0qsCuAUccVXUjLT0TYERBX6HM Cg== ID Date Data Source [id number] 02/28/2020 02:16:06 PM [facility] Name Value Range Interpretation Code Description Data Elaine rce(s) Supporting Document(s) Progress Note [facility] WLYPIy9zGwOMDuTz01/VMEhhBSFdv8NcVKzdIBz6GIguKFCkU3IcQJK1zH6hCXW3TOlLIjGjAgXnSYI5 lbm [file] [id number] ID Date Data Source [id number] 02/21/2020 12:00:00 AM EST [facility] Name Value Range Interpretation Code Description Data Elaine rce(s) Supporting Document(s) SARS coronavirus 2 Ag [facility] This lab was ordered by [facility] and reported by [facility]. ID Date Data Source [id number] 02/01/2020 09:20:00 AM EDT [facility] Name Value Range Interpretation Code Description Data Elaine rce(s) Supporting Document(s) ferritin 13 NG/mL 8-252 Ferritin [facility] ([facility]) ID Date Data Source [id number] 02/01/2020 09:20:00 AM EDT [facility] ([facility]) Name Value Range Interpretation Code Description Data Elaine rce(s) Supporting Document(s) total 25(oh) vitamin D 21.7 NG/mL 30.0-100.0 Below low normal T otal 25(Oh) Vitamin D [facility] ([facility]) ID Date Data Source [id number] 02/01/2020 09:20:00 AM EDT [facility] ([facility]) Name Value Range Interpretation Code Description Data Elaine rce(s) Supporting Document(s) vitamin B12 level 254 pg/mL Vitamin B12 Level [facility] ([facility]) folate 6.0 NG/mL Folate [facility] ([facility]) ID Date Data Source [id number] 02/01/2020 09:20:00 AM EDT [facility] ([facility]) Name Value Range Interpretation Code Description Data Elaine rce(s) Supporting Document(s) iron (fe) 19 ug/dL 50-170 Below low normal Iron (Fe) [facility] ( [facility]) ID Date Data Source [id number] 02/01/2020 09:20:00 [facility] Name Value Range Interpretation Code Description Data Elaine rce(s) Supporting Document(s) HDL cholesterol 50 mg/dL >40 HDL Cholesterol [facility] ([facility]) triglycerides level 119 mg/dL <150 Triglycerides [place] [facility] ([facility]) cholesterol level 160 mg/dL <200 Cholesterol Level [facility] ([facility]) Cholesterol in LDL [Mass/volume] in Serum or Plasma 86 mg/dL <1 00 LDL Cholesterol [facility] ([facility]) cholesterol risk ratio <5 Cholesterol R isk Ratio [facility] ([facility]) non-HDL-C 110 mg/dL Non-hdl-c [facility] ([facility]) ID Date Data Source [id number] 02/01/2020 09:20:00 AM EDT [facility] ([facility]) Name Value Range Interpretation Code Description Data Elaine rce(s) Supporting Document(s) blood urea nitrogen 9 mg/dL 7-18 Blood Urea Nitro gen [facility] ([facility]) glucose, fasting 144 mg/dL 70-100 Above high normal Glucose, Fas ting [facility] ([facility]) potassium serum 3.9 mEq/L 3.5-5.1 Potassium Serum [facility] NA ([facility]) sodium level 139 mEq/L 136-145 Sodium Level [facility] ([facility]) creatinine for GFR 0.65 mg/dL 0.55-1.30 Creatinine for GF R [facility] ([facility]) glomerular filtration rate > 60.0 >58 Glomerula r Filtration Rate [facility] ([facility]) AST/SGOT 26 U/L 7-37 AST/SGOT [facility] ([facility]) carbon dioxide level 28 mEq/L 21-32 Carbon Dioxide Level [facility] ([facility]) calcium level 8.6 mg/dL 8.5-10.1 Calcium Level [facility] ( [facility]) chloride level 104 mEq/L 98-107 Chloride Level [facility] ([facility]) anion gap 7 mEq/L 8-16 Below low normal Anion Gap [facility] ( [facility]) bilirubin,total 0.3 mg/dL 0.2-1.0 Bilirubin,total [facility] ([facility]) ALT/SGPT 27 U/L 12-78 ALT/SGPT [facility] ([facility]) alkaline phosphatase 119 U/L 45-117 Above high normal Alkaline Phosphatase [facility] ([facility]) albumin 3.1 gm/dL 3.2-5.2 Below low normal Albumin [facility] ( [facility]) total protein 6.8 gm/dL 6.4-8.2 Total Protein [facility] ( [facility]) albumin/globulin ratio 1.2-2.2 Below low normal Albumin /globulin Ratio [facility] ([facility]) ID Date Data Source [id number] 02/01/2020 09:20:00 AM EDT [facility] ([facility]) Name Value Range Interpretation Code Description Data Elaine rce(s) Supporting Document(s) Hemoglobin A1c/Hemoglobin.total in Blood 6.5 % Hemoglobin a1C [facility] ([facility]) estimated average glucose 140 mg/dL 60-110 Above high norm al Estimated Average Glucose [facility] ([facility]) ID Date Data Source [id number] 02/01/2020 09:20:00 AM EDT [facility] ([facility]) Name Value Range Interpretation Code Description Data Elaine rce(s) Supporting Document(s) white blood count 9.7 10 4.0-10.0 White Blood Count [facility] ([facility]) red blood count 4.97 10 4.00-5.40 Red Blood Count [facility] ([facility]) hemoglobin 9.9 g/dL 12.0-15.5 Below low normal Hemoglobin [facility] ( [facility]) mean corpuscular volume 74.8 fL 80.0-96.0 Below low normal Mean Corpuscular Volume [facility] ([facility]) mean corpuscular hemoglobin 19.9 pg 27.0-33.0 Below low nor mal Mean Corpuscular Hemoglobin [facility] ([facility]) hematocrit 37.2 % 36.0-47.0 Hematocrit [facility] ([facility]) red cell distribution width 23.6 % 11.5-14.5 Above high no rmal Red Cell Distribution Width [facility] ([facility]) neutrophils % 65.6 % 36.0-66.0 Neutrophils % [facility] ( [facility]) platelet count, automated 402 10 150-450 Platelet C ount, Automated [facility] ([facility]) mean corpuscular HGB conc 26.6 g/dL 32.0-36.5 Below low mikael l Mean Corpuscular HGB Conc [facility] ([facility]) lymph % 18.1 % 24.0-44.0 Below low normal Lymph % [facility] ( [facility]) baso % 1.0 % 0.0-1.0 Baso % [facility] ([facility]) mono % 6.5 % 0.0-5.0 Above high normal [place] % [facility] ([facility]) eos % 8.4 % 0.0-3.0 Above high normal Eos % [facility] ([facility]) immature granulocyte % 0.4 % 0-3.0 Immature Gran ulocyte % [facility] ([facility]) nucleated red blood cell % 0.0 % 0-0 Nucleated Red Blood Cell % [facility] ([facility]) lymph # 1.8 10 1.5-5.0 Lymph # [facility] ([facility]) neutrophils # 6.3 10 1.5-8.5 Neutrophils # [facility] ( [facility]) mono # 0.6 10 0.0-0.8 [place] # [facility] ([facility]) eos # 0.8 10 0.0-0.5 Above high normal Eos # [facility] ([facility]) baso # 0.1 10 0.0-0.2 Baso # [facility] ([facility]) ID Date Data Source [id number] 01/16/2020 10:10:35 AM EDT [facility] Measurements & CalculationsHeight: 59 inches (4 ft. 11 in.) 149.86 cm Weight: 212.4 pounds 96.55 kg Body Mass Index (BMI): 43.05BMI Interpretation: Morbidly ObeseBody Surface Area (BSA): 1.89Weight Management Education Done (Nutrition/Physical Activity)Vital SignsTemperature: 97.5FPulse Rate: 94 beats/minuteRespiratory Rate: 16 respirations/minuteBlood Pressure: 128/78 O2 Saturation: 97% Vital Signs performed by: Ann Bower MA, January 16, 2020 11:38 AMVital Signs performed by: Ann Bower MA, January 16, 2020 11:38 AMInitial Intake Information From: patientRoom #: 9Infectious Disease / Travel ScreeningRecent travel for you or any close contacts? NoHave you had any close contact with anyone diagnosed with or under investigation for COVID-19 (coronavirus)? NoFever? NoRespiratory symptoms: cough, cold, congestion, shortness of breath, difficulty breathing? NoLoss of smell? NoLoss of taste? N oSmoking, Tobacco, Vaping or Smoke Exposure StatusSmoke Status: never smokerTobacco Use: NoDo you vape? NoPassive Smoke Exposure: NoMenstrual HistoryLast Menstrual Period (LMP): 01/11/2020LMP History: ApproximateAny possibility of ? NoHealthcare HistorySince your last office visit...Have you been admitted to the hospital? [facility] reported [facility]: [facility]/2019Have you been to an emergency room (ER) or urgent care clinic? Yes - [facility] - [facility] EREmergency room (ER) or urgent care date reported today: 01/02/2020Have you seen another healthcare provider? Yes - Pulmonary, OrthopedicHave you seen a dentist? Yes - [facility] performed by: Ann Bower MA, January 16, 2020 10:15 AMRate Your HealthIn general, would you say your health is? FairPain AssessmentAre you currently having any pain which... You would like your provider to address? No Affects your activity level? NoDepression Screening - PHQ-2Over the last two weeks, have you... Had little interest or pleasure in doing things? Not at all Been feeling down, depressed, or hopeless? Nearly every day PHQ-2 Score: 3Anxiety Screening - TALI-2Over the last two weeks, have you been... Feeling nervous, anxious, or on edge? Not at all Unable to stop or control worrying? Not at all TALI-2 Score: 0Food InsecurityWithin the past year...Did you worry whether your food would run out before you got money to buy more? Never trueWas there a time when the food you bought didn't last and you didn't have money to get more? Never truePHQ-9 1. Over the last 2 weeks, patient reports the following frequency of symptoms: a. Little interest or pleasure in doing things -Not at all b. Feeling down, depressed, or hopeless -Nearly every day c. Trouble falling asleep, staying asleep, or sleeping too much -Nearly every day d. Feeling tired or having little energy - Nearly every day e. Poor appetite or overeating -Not at all f. Feeling bad about yourself, feeling that you are a failure, or feeling that you have let yourself or your family down -Not at all g. Trouble concentrating on things such as reading the newspaper or watching television -Not at all h. Moving or speaking so slowly that other people could have noticed. Or being so fidgety or restless that you have been moving around a lot more than usual -Not at all i. Thinking that you would be better off or that you want to hurt yourself in some way -Not at all2. If you checked off any problems, how difficult have these problems made it for you to do your work, take care of things at home, or get along with other people? -No t Difficult at AllToday's PHQ-9 Results Score: 9 Severity: Mild Diagnosis Recommendation: Other Depression Functional Impairment: Not Difficult at AllScreening, Brief Intervention, & Referral to Treatment (SBIRT)Pre-Screening Questions How many times have you have 4 or more drinks in a day? 0How many times have you used an illegal drug or used a prescription medication for a non-medical reason? 0Performed by: Ann Bower MA, January 16, 2020 10:19 AMPatient History Social/Personal History: Chief Complaintfollow-up visit meds room 9History of Present Illness (HPI)44 YO female here for med follow up. Needs new albuterol prescription. Pt states she has pain in hands, but it currently seeing orthopedics. Pt would like a flu vaccine. Pt wants referall for mamogram and pap smear. HPI performed by: Alyse PACHECO, January 16, 2020 10:44 AMTransitions of Care InboundProblem ReviewProblem List was reviewed and/or updated during this visit.Medication Reconciliation & ReviewMedication List was reviewed and/or updated during this visit, including review of any mlkp-oxk-zazsxac medications, herbal therapies, and/or supplements.Allergy ReviewAllergy List was reviewed and/or updated during this visit.Adult Preventive CareProvider Calculated and Reviewed all Clinical Protocols for patient today. Labs/Meds/Other Counseling-Nutrition and Physical Activity:BMI Interpretation: Morbidly Obese (01/16/2020) Counseling: Done (01/16/2020) Physical Activity: Done (01/16/2020)Review of Systems General: Denies loss of appetite, chills, dizziness, fatigue, fever, continued fever, h eadache, feeling ill, sweats, night sweats, sleep disturbances, weight loss. Eyes: Denies blurring of vision, double vision, irritation, discharge, vision loss, eye pain, eye swelling, droopy eyelid, sensitivity to light, redness, itching. Ears/Nose/Throat: Denies earache, ear discharge, ringing in ears, decreased hearing, nasal congestion, nosebleeds, runny nose, sore throat, hoarseness, difficulty swallowing, dry mouth, tooth pain, bleeding gums, swollen glands. Cardiovascular: Denies chest pain, palpitations, feeling faint, trouble breathing w/exertion, SOB upon lying down, SOB at night, peripheral edema, elevated blood pressure, decreased heart rate. Respiratory: Denies cough, difficulty breathing, shortness of breath, excessive sputum, coughing up blood, wheezing, chest pain. Breast: Denies discoloration, tenderness, breast changes, breast lump, nipple discharge. Gastrointestinal: Denies nausea, vomiting, bleeding, burning, itching, irritation, cramps, diarrhea, constipation. Genitourinary: Denies urinary incontinence, pain with urination, burning with urination, urinary frequency, urinary hesitancy, urinary urgency, urinary urgency at night, incomplete emptying, blood in urine. Musculoskeletal: Denies back pain, joint pain, leg pain, other pain-see comments, joint swelling, body aches, muscle aches, muscle cramps, muscle weakness, stiffness, recent injury. Skin: Denies rash, hives, redness, itching, dryness, nail changes, suspicious lesions, athlete's foot, rash on palms, rash on bottom of feet. Neurologic: Denies muscle impairment, weakness, numbness/tingling, seizures, slurred speech, feeling faint, tremors, vertigo, paralysis on one side, paralysis on both sides. Psychiatric: Denies depression, anxiety, memory loss, mental disturbance, suicidal ideation, homicidal ideation, hallucinations, paranoia, feeling stressed, hearing voices. Endocrine: Denies cold intolerance, heat intolerance, excessive thirst, excessive hunger, excessive urination, weight loss, weight gain. Physical ExamGeneral Appearance: well nourished, well hydrated, no acute distressEyes, External: conjunctivae and lids normal, EOMIRespiratory, Auscultation: clear to auscultation bilaterally; no ra les, rhonchi, or wheezesRespiratory, Effort: no intercostal retractions or use of accessory musclesCardiovascular, Auscultation: S1, S2 audible; no murmur, rub, or gallop; RRRPeripheral Circulation: no clubbing, cyanosis, edema, or varicositiesAbdomen: soft, non-tender, no masses, bowel sounds normalGait & Station: normalSkin, Inspection: no rashes, lesions, or ulcerationsOrientation: oriented to time, place, and personMood & Affect: no depression, anxiety, or agitationJudgment & Insight: intactCare Management Plan Transitions of CareInboundRate Your HealthIn general, would you say your health is? FairAssessment & Plan Problems:Added: Paresthesia of hand (ICD-782.0) (ICD10- R20.2) Assessment: Pt states numbness and tingling, bilat hand and fingers. Mat req nerve conduction studies. referral made to ortho for eval. Instructions: We have made a referral for you today. Wew will contact you to set this up.Needs influenza immunization (ICD-V04.81) (TCL44-W62.3) Assessment: Instructions: You have had your Flu vaccine done today. There may be soreness at the injection site. Please report any adverse reactions.Vaccination (ICD- V05.9) (YII54-J17) Assessment: Instructions: Flu vaccine given today.Encounter for screening mammogram for malignant neoplasm of breast (ICD- V76.12) (PFN71-U33.31) Assessment: Instructions: We have ordered a mammogram for you today. We will contact you to set this up.Assessed:Asthma (ICD-493.90) (QSV65-Q09.909) Assessment: Pt states started on new inhalers by pulmonary. Pt states feeling much better. Instructions: Please continue media tions as prescribed. Please try to avoid asthma triggers. Please continue to follow with Luggage Repairer as scheduled.Person consulting for explanation of examination or test findings (ICD-V65.8) (OOG86-M53.2) Assessment: HGB decreased Pt asymtomatic. order to recheck prior to next visit Instructions: We have reviewed your lab results with you today. Please continue medications as prescribed. Please continue healthy diet and physical activities.Anemia (ICD- 285.9) (OYU00-E66.9) Assessment: HGB decreased, pt asymtomatic. order to recheck prior to next visit. Instructions: Please continue healthy diet and physical activities. Will recheck labs prior to next visit.Dyspnea, unspecified (JVL56-X19.00) Assessment: pt denies sob at this time. Instructions: Lungs sounds clear on auscultation. Please continue medications as prescribed. Please continue to follow with your pumonologist as scheduled.Asthmatoid wheeze (ICD- 786.07) (FXI29-U46.2) Assessment: Instructions: Lungs sounds clear on ausc ultation. Please continue medications as prescribed. Please continue to follow with your pumonologist as scheduled.Screening for malignant neoplasms of the cervix (ICD-V76.2) (KRE07-D54.4) Assessment: Instructions: We have made a referral to SHOE REPAIR SUPERVISOR for you today. We will contact you to set this up.Patient Instructions/Care Plan: Paresthesia of hand: We have made a referral for you today. Wew will contact you to set this up.Asthma: Please continue mediations as prescribed. Please try to avoid asthma triggers. Please continue to follow with Luggage Repairer as scheduled.Needs influenza immunization: You have had your Flu vaccine done today. There may be soreness at the injection site. Please report any adverse reactions.Vaccination: Flu vaccine given today.Encounter for screening mammogram for malignant neoplasm of breast: We have ordered a mammogram for you today. We will contact you to set this up.Person consulting for explanation of examination or test findings: We have reviewed your lab resul ts with you today. Please continue medications as prescribed. Please continue healthy diet and physical activities.Anemia: Please continue healthy diet and physical activities. Will recheck labs prior to next visit.Dyspnea- unspecified: Lungs sounds clear on auscultation. Please continue medications as prescribed. Please continue to follow with your pumonologist as scheduled.Asthmatoid wheeze: Lungs sounds clear on auscultation. Please continue medications as prescribed. Please continue to follow with your pumonologist as scheduled.Screening for malignant neoplasms of the cervix: We have made a referral to SHOE REPAIR SUPERVISOR for you today. We will contact you to set this up. Plan developed in collaboration with patient and/or familyMedications:STIOLTO RESPIMAT 2.5-2.5 MCG/ACT INHALATION AEROSOL SOLUTIONARNUITY ELLIPTA 100 MCG/ACT INHALATION AEROSOL POWDER BREATH ACTIVATEDALBUTEROL SULFATE 2.5 MG/0.5ML INHALATION NEBULIZATION SOLUTIONNYSTATIN [id number] UNIT/ML MOUTH/THROAT SUSPENSIONPREDNISONE 10 MG ORAL TA BLETOMEPRAZOLE 20 MG ORAL CAPSULE DELAYED RELEASEIPRATROPIUM-ALBUTEROL 0.5-2.5 (3) MG/3ML INHALATION SOLUTIONFERROUS SULFATE 325 (65 FE) MG ORAL [id number] [facility] COMFORTOUCHONETOUCH VERIO IN VITRO STRIPONETOUCH VERIO W/DEVICE KITMETFORMIN HCL ER 500 MG ORAL TABLET EXTENDED RELEASE 24 HOURVITAMIN D3 37484 UNIT ORAL TABLETALBUTEROL SULFATE NEBULIZATION SOLUTIONVENTOLIN HFA 108 (90 BASE) MCG/ACT INHALATION AEROSOL SOLUTIONCITALOPRAM HYDROBROMIDE 20 MG ORAL TABLETMASK AND TUBING FOR NEBULIZER MACHINE.NAPROSYN 500 MG ORAL TABLETTYLENOL 325 MG ORAL TABLETTRAZODONE HCL TABLETCPAP MASKALBUTEROL SULFATE (2.5 MG/3ML) 0.083% INHALATION NEBULIZATION SOLUTIONMONTELUKAST SODIUM 10 MG ORAL TABLETADVAIR DISKUS 250-50 MCG/DOSE INHALATION AEROSOL POWDER BREATH ACTIVATEDMedication Changes:Added: ARNUITY ELLIPTA 100 MCG/ACT INHALATION AEROSOL POWDER BREATH ACTIVATEDSTIOLTO RESPIMAT 2.5-2.5 MCG/ACT INHALATION AEROSOL SOLUTION-2 puffs once dailyNew Prescription:ALBUTEROL SULFATE 2.5 MG/0.5ML INHALATION NEBULIZATION SOLUTION-inhale contents of one vial via nebulizer every 4 hours as needed Qty: 180[Inhalation] Refills: 5 Method: ElectronicAllergies:ASPIRIN (Critical)* FISH (Severe)Orders:Parts Manager [CPT-43364] Mammography - Screening -bilateral (2-view study of each breast), including computer-aided detection (CAD) when performed [CPT-28807] Orthopaedics Consult [CPT-71765] COMP METABOLIC PANEL [CPT-05731] CBC W/DIFF [CPT-65574] HgBA1c [CPT- 57050] LIPID PANEL [CPT-82383] Vitamin D 250H Unspecified [CPT-45816] IRON [CPT- 65480] VITAMIN B-12 [CPT-09842] FERRITIN [CPT-08123] Folate (Folic Acid Serum) [CPT-32460] Administration of Influenza Virus Vaccine [CPT-G0008] FluLaval Quadrivalent, preservative free [CPT-37481] 24446 - Immo Admin (over 19 yrs), 1st Vaccine [CPT-54009] Adult - Ofc Vst, EST, Level IV [CPT-88051] Follow-Up Return to clinic: 4-6 weeks for follow up Clinical Visit Summary CompletedMedications:ALBUTEROL SULFATE 2.5 MG/0.5ML INHALATION NEBULIZATION SOLUTION (ALBUTEROL SULFATE) inhale contents of one vial via nebulizer every 4 hours as needed #180[Inhalation] x 5 Route:INHALATION Entered and Authorized by: Alyse PACHECO Method used: Electronically to [facility] (retail) [address] [place] [address] Fax: Note to Pharmacy: Route: INHALATION; Indications: ASTHMA RxID: [id number] Questionnaire1) Does the patient have a long-term health problem with heart disease, lung disease, asthma, kidney disease, metabolic disease (e.g., diabetes), anemia, or other blood disorder? Yes2) Does the patient have allergies to medications, food, a vaccine component, or latex? No3) Does the patient have cancer, leukemia, AIDS, or any other immune system problem? No4) Does the patient live with or expect to have close contact with a person whose immune system is severely compromised and who must be in protective isolation (e.g., an isolation room of a bone marrow transplant unit)? No5) Does the patient take cortisone, prednisone, other steroids, or anticancer drugs, or has the patient had radiation treatments? No6) During the past year, has the patient received a transfusion of blood or blood products, or been given immune (gamma) globulin or an antiviral drug? No7) For women: Is the patient or is there a chance she could become during the next month? No8) Has the patient ever had a serious reaction to a vaccine in the past? No9) Has the patient had a seizure or a brain or other nervous system problem? No10) Has the patient received any vaccinations in the past 4 weeks? No11) Is the patient older than age 49 years? No12) Is the patient sick today? No13) Vaccine information given and explained to patient? YesVaccines Administered/Entered:Vaccination Group: InfluenzaSeries: 1Vaccination: Flulaval Quadrivalent Intramuscular Suspension Prefilled Syringe 0.5 MLMfr / Lot# / Exp.Date: [employer] / [id number] 10/02/2020mt. Given / Route / Site: 0.5 mL / IM / Left DeltoidNDC / CVX: [id number] / 150Administered Date: 01/16/2020 11:22VFC Eligibility: Non-VFC ClinicVIS Date: 11/17/2018VIS Given / VIS Given On: 01/16/2020Comments: Administered by: Mary Mtz LPN Name Value Range Interpretation Code Description Data Elaine rce(s) Supporting Document(s) Procedure Social History Code Duration Value Status Description Data Source(s ) Tobacco use and exposure 02/28/2020 12:00:00 AM EST Never used co mpleted Never used [facility] Smoking 02/28/2020 12:00:00 AM EST Never smoker completed Never s [facility] Vital Signs ID Date Data Source UNK Name Value Range Interpretation Code Description Data Source(s) Body temperature 96.6 [degF] 96.6 [degF] [facility] ([facility]) Body weight 211.00 [lb_av] 211.00 [lb_av] MEDEN T ([facility]) Body height 60 [in_i] 60 [in_i] [facility] ([facility]) 5'0" Body mass index (BMI) [Ratio] 41.2 kg/m2 41.2 k g/m2 [facility] ([facility]) Diastolic blood pressure 83 mm[Hg] 83 mm[Hg] [facility]) Systolic blood pressure 124 mm[Hg] 124 mm[Hg] M [facility]) Heart rate 101 /min 101 /min [facility] ([facility]) Respiratory [facility] 13 /min 13 /min [facility] ( [facility], [facility]) Oxygen saturation in Arterial blood by Pulse oximetry 94 % 94 % [facility] ([facility], [facility]) Systolic blood pressure 118 mm[Hg] 118 mm[Hg] M [facility] ([facility]) Diastolic blood pressure 74 mm[Hg] 74 mm[Hg] [facility] ([facility]) Heart rate 127 /min 127 /min [facility] ([facility], [facility]) Respiratory rate 18 /min 18 /min [facility] ( [facility], [facility]) Oxygen saturation in Arterial blood by Pulse oximetry 98 % 98 % [facility] ([facility], [facility]) Body temperature 98.6 [degF] 98.6 [degF] [facility] ([facility]) Body weight 212.00 [lb_av] 212.00 [lb_av] [facility] Body temperature 96.8 [degF] 96.8 [degF] [facility] ([facility]) Body height 58 [in_i] 58 [in_i] [facility] ([facility]) 4'10" Body weight 215.00 [lb_av] 215.00 [lb_av] [facility] Body mass index (BMI) [Ratio] 44.9 kg/m2 44.9 k g/m2 [facility] ([facility]) [place] body weight 100 [lb_av] 100 [lb_av] [facility] Body weight 97.524 kg 97.524 kg [facility] ([facility]) Systolic blood pressure 120 mm[Hg] 120 mm[Hg] [facility] ([facility]) Diastolic blood pressure 70 mm[Hg] 70 mm[Hg] [facility] ([facility]) Heart rate 66 /min 66 /min [facility] ([facility]) Respiratory rate 16 /min 16 /min [facility] ( [facility]) Oxygen saturation in Arterial blood by Pulse oximetry 98 % 98 % [facility] ([facility], [facility]) Body temperature 98.0 [degF] 98.0 [degF] [facility] ([facility]) Body weight 214.00 [lb_av] 214.00 [lb_av] [facility] T ([facility], [facility]) Body height 59 [in_i] 59 [in_i] [facility] ([facility]) 4'11" Body mass index (BMI) [Ratio] 43.2 kg/m2 43.2 k g/m2 [facility] ([facility]) ID Date Data Source [id number] 02/28/2020 02:16:[address] [facility] Name Value Range Interpretation Code Description Data Source(s) WEIGHT RECORDED 212 lb 212 lb [facility] Body height Measured 56.69 in 56.69 in [facility] Patient Treatment Plan of Care Planned Activity Planned Date Details Description Data Source (s) Albuterol Sulfate HFA 108 (90 Base) MCG/ ACT Inhalation Aerosol Solution (PROVENTIL HFA) 11/22/2019 12:00:00 AM [facility] Trelegy Ellipta 100-62.5-25 MCG/INH Aero errol Powder Breath Activated (Uacosuqcyxr-Sycudeajl-Zgvvhn) 11/22/2019 12:00:00 AM [facility]
--- OUTSIDE RECORDS SUMMARY | 2021-02-12 20:54 | CCD ---
Author Author [facility] Organization [facility] Address Unknown Phone Unavailable Care Team Providers Care Cash Surrender Calculator Name Role Phone Arceo, Vero REGISTERED DENTAL HYGIENIST Unavailable Unavailable Arceo, Vero REGISTERED DENTAL HYGIENIST Unavailable Unavailable Arceo, Vero REGISTERED DENTAL HYGIENIST Unavailable Unavailable Arceo, Vero REGISTERED DENTAL HYGIENIST Unavailable Unavailable Arceo, Vero REGISTERED DENTAL HYGIENIST Unavailable Unavailable Arceo, Vero REGISTERED DENTAL HYGIENIST Unavailable Unavailable Arceo, Vero REGISTERED DENTAL HYGIENIST Unavailable Unavailable Arceo, Vero REGISTERED DENTAL HYGIENIST Unavailable Unavailable Arceo, Vero REGISTERED DENTAL HYGIENIST Unavailable Unavailable Arceo, Vero REGISTERED DENTAL HYGIENIST Unavailable Unavailable Arceo, Vero REGISTERED DENTAL HYGIENIST Unavailable Unavailable Arceo, Vero REGISTERED DENTAL HYGIENIST Unavailable Unavailable Arceo, Vero REGISTERED DENTAL HYGIENIST Unavailable Unavailable Amol Renee MD Unavailable Unavailable Amol Renee MD Unavailable Unavailable Amlo Renee MD Unavailable Unavailable Amol Renee MD [...] Víctor, Amol MAGUIRE Unavailable Unavailable Alyse Caballero FISH HATCHERY MANAGER FISH HATCHERY MANAGER Unavailable Unavailable Warren WIGGINS Unavailable Unavailable Mollison, [...] Genna PA Unavailable Unavailable Federico, A Alyse FISH HATCHERY MANAGER Unavailable Unavailable Clarksdale, A Alyse FISH HATCHERY MANAGER Unavailable Unavailable Clarksdale, A Alyse FISH HATCHERY MANAGER Unavailable Unavailable Clarksdale, A Alyse FISH HATCHERY MANAGER Unavailable Unavailable Clarksdale, A Alyse FISH HATCHERY MANAGER Unavailable Unavailable Clarksdale, A Alyse FISH HATCHERY MANAGER Unavailable Unavailable Clarksdale, A Alyse FISH HATCHERY MANAGER Unavailable Unavailable Clarksdale, A Alyse FISH HATCHERY MANAGER Unavailable Unavailable Clarksdale, A Alyse FISH HATCHERY MANAGER Unavailable Unavailable Clarksdale, A Alyse FISH HATCHERY MANAGER Unavailable Unavailable Clarksdale, A Alyse FISH HATCHERY MANAGER Unavailable Unavailable Clarksdale, A Alyse FISH HATCHERY MANAGER Unavailable Unavailable Clarksdale, A Alyse FISH HATCHERY MANAGER Unavailable Unavailable Clarksdale, A Alyse FISH HATCHERY MANAGER Unavailable Unavailable Clarksdale, A Alyse FISH HATCHERY MANAGER Unavailable Unavailable Clarks[place], A Alyse FISH HATCHERY MANAGER Unavailable Unavailable [place]arks[place], A Alyse FISH HATCHERY MANAGER Unavailable Unavailable Clarks[place], A Alyse FISH HATCHERY MANAGER Unavailable Unavailable Clarks[place], A Alyse FISH HATCHERY MANAGER Unavailable Unavailable Clarksdale, A Alyse FISH HATCHERY MANAGER Unavailable Unavailable Clarksdale, A Alyse FISH HATCHERY MANAGER Unavailable Unavailable Clarks[place], A Alyse FISH HATCHERY MANAGER Unavailable Unavailable Clarks[place], A Alyse FISH HATCHERY MANAGER Unavailable Unavailable Clarks[place], A Alyse FISH HATCHERY MANAGER Unavailable Unavailable Clarks[place], A Alyse FISH HATCHERY MANAGER Unavailable Unavailable Clarksdale, A Alyse FISH HATCHERY MANAGER Unavailable Unavailable Clarksdale, A Alyse FISH HATCHERY MANAGER Unavailable Unavailable Clarksdale, A Alyse FISH HATCHERY MANAGER Unavailable Unavailable Clarksdale, A Alyse FISH HATCHERY MANAGER Unavailable Unavailable Clarks[place], A Alyse FISH HATCHERY MANAGER Unavailable Unavailable Clarks[place], A Alyse FISH HATCHERY MANAGER Unavailable Unavailable Tomás VARGAS MD Unavailable Unavailable [...] ARIANNA PA Unavailable Unavailable Federico, A Alyse FISH HATCHERY MANAGER Unavailable Unavailable Federico, A Alyse FISH HATCHERY MANAGER Unavailable Unavailable Federico, A Alyse FISH HATCHERY MANAGER Unavailable Unavailable Federico, A Alyse FISH HATCHERY MANAGER Unavailable Unavailable Federico, A Alyse FISH HATCHERY MANAGER Unavailable Unavailable Federico, A Alyse FISH HATCHERY MANAGER Unavailable Unavailable Federico, A Alyse FISH HATCHERY MANAGER Unavailable Unavailable Federico, A Alyse FISH HATCHERY MANAGER Unavailable Unavailable Federico, A Alyse FISH HATCHERY MANAGER Unavailable Unavailable Federico, A Alyse FISH HATCHERY MANAGER Unavailable Unavailable Federico, A Alyse FISH HATCHERY MANAGER Unavailable Unavailable Federico, A Alyse FISH HATCHERY MANAGER Unavailable Unavailable Federico, A Alyse FISH HATCHERY MANAGER Unavailable Unavailable Federico, A Alyse FISH HATCHERY MANAGER Unavailable Unavailable Federico, A Alyse FISH HATCHERY MANAGER Unavailable Unavailable Federico, A Alyse FISH HATCHERY MANAGER Unavailable Unavailable Federico, A Alyse FISH HATCHERY MANAGER Unavailable Unavailable Federico, A Alyse FISH HATCHERY MANAGER Unavailable Unavailable Federico, A Alyse FISH HATCHERY MANAGER Unavailable Unavailable Federico, A Alyse FISH HATCHERY MANAGER Unavailable Unavailable Federico, A Alyse FISH HATCHERY MANAGER Unavailable Unavailable Federico, A Alyse FISH HATCHERY MANAGER Unavailable Unavailable Federico, A Alyse FISH HATCHERY MANAGER Unavailable Unavailable Federico, A Alyse FISH HATCHERY MANAGER Unavailable Unavailable Federico, A Alyse FISH HATCHERY MANAGER Unavailable Unavailable Federico, A Alyse FISH HATCHERY MANAGER Unavailable Unavailable Federico, A Alyse FISH HATCHERY MANAGER Unavailable Unavailable Federico, A Alyse FISH HATCHERY MANAGER Unavailable Unavailable Federico, A Alyse FISH HATCHERY MANAGER Unavailable Unavailable Federico, A Alyse FISH HATCHERY MANAGER Unavailable Unavailable Federico, A Alyse FISH HATCHERY MANAGER Unavailable Unavailable MUKESH MURPHY [id number] Unavailable Unavailable Re-disclosure Warning The records that [...] is protected by Article 27-F of the [facility] Public Health law. If you continue you may have access to information: Regarding HIV / AIDS; Provided by facilities licensed or operated by the [facility] Office of Mental Health; or Provided by the [facility] Office for People With Developmental Disabilities. If such information is present, then the following [facility] mandated warning applies: This information has been [...] law may result in a fine or intermediate sentence or both. A general authorization for the release of medical or other information is NOT sufficient authorization for further disc losure. Family History Family Member Name Family Member Gender Family Member Status Date o f Status Description Data Source(s) Unknown Male Problem [facility] ([facility], ) () Encounters Encounter Providers Location Date Indications Data Source(s ) Outpatient 03/12/2021 12:00:00 AM [facility] Outpatient Attender: DIOGENES VARGAS MDAttender: Amol guardado MD 03/12/2021 12:00:00 AM [facility] Outpatient Referrer: MUKESH MURPHY [id number] 07/12/2020 02:07:25 PM EDT - 07/12/2020 11:59:00 PM EDT Dyspnea, unspecified [facility] Dyspnea, unspecified Outpatient Attender: DIOGENES VARGAS MD 07/12/2020 12:00 :00 AM EDT [facility] Outpatient Attender: ARIANNA ramírez 05/01/2020 02:00:00 PM EST [facility] ([facility]) Outpatient Attender: DIOGENES VARGAS MD [id number] 04/29/2019 12:00:00 AM [facility] Outpatient Attender: ELINA Temple: DIOGENES MENDEZ MD 02/28/2020 12:00:00 AM EST Mild intermittent asthma, uncomplicated [facility] Mild intermittent asthma, uncomplicated Outpatient Attender: Genna harpy 02/21/2020 04:40:00 PM EST [facility] ([facility]) JUNIOR Obrien-BC: [address] [place] [id number], Ph. Attender: Alyse PACHECO [facility] 02/01/2020 12:00:00 AM EDT [facility] ([facility]) Outpatient Attender: JUNIOR BOUDREAUX 01/19/2020 12:28:02 P M EDT [facility] Outpatient Attender: Alyse BOUDREAUX 01/19/2020 12:2 7:01 PM EDT [facility] Outpatient Attender: JUNIOR BOUDREAUX 01/16/2020 11:20:02 A M EDT [facility] Outpatient Attender: JUNIOR BOUDREAUX 01/16/2020 10:00:02 A M EDT [facility] Outpatient Attender: JUNIOR Caballero [facility] 01/15/2020 12:16:00 P M EDT [facility] Outpatient Attender: Master Magdaleno/Zuleima/Huey/Brittaney oliver 01/10/2020 09:00:00 AM EDT [facility] ([facility]) Outpatient Attender: Alyse Caballero [facility] 01/06/2020 12:4 0:01 PM EDT [facility] Outpatient Attender: Alyse Caballero [facility] 01/02/2020 06:5 7:01 PM EDT [facility] Outpatient Attender: JUNIOR Caballero [facility] 01/02/2020 04:40:00 P M EDT [facility] Outpatient Attender: JUNIOR Caballero [facility] 12/29/2019 09:41:02 A M EDT [facility] Outpatient Attender: Vero angel 12/27/2019 01:20:00 PM EDT [facility] ([facility], [facility]) Immunizations Vaccine Date Status Description Data Source(s) COVID-19 VACCINE Pfizer 12/14/2020 12:00:00 AM EDT completed [facility] Vaccine Series Complete: YESThis Data wa s Submitted to [facility]. COVID-19 VACC, MRNA(PFIZER)/PF 11/16/2020 12:00:00 AM EDT completed [facility] COVID-19 VACCINE Pfizer 11/16/2020 12:00:00 AM EDT completed [facility] Vaccine Series Complete: NOThis Data was Submitted to [facility]. Medications Medication Brand Name Start Date Product Form Dose Route Admi nistrative Instructions Pharmacy Instructions Status Indications Reaction Description Data Source(s) Methylprednisolone 4 MG Oral Tablet Methylprednisolone 04/06 12:00:00 AM EST ORAL active MEDENT ([facility], [facility]) albuterol (PROVENTIL HFA) inhaler 2 puff 0732-8107-74 02/28/2020 01:45:00 PM EST 2 {puff} Inhalation active Intermitt ent asthma, unspecified asthma severity, unspecified whether complicated 2 puff, Inha lation, Once RT, 11/25/20 at 1345, For 1 dose
Shake the inhaler well before each spray.
[facility] Intermittent asthma, unspecified asthma severity, unspecified whether complicated Medication administered onsite cefdinir 300 MG Oral Capsule Cefdinir 02/21/2020 12:00:00 AM EST ORAL completed MEDENT ([facility], [facility]) Prednisone 20 MG Oral Tablet Prednisone 12/27/2019 12:00:00 AM EDT completed [facility] ([facility], [facility]) Trelegy Ellipta 100-62.5-25 MCG/INH Aero errol Powder Breath Activated (Yfydhryusas-Kaasttwzz-Xywwxr) 3947-3979-14 11/22/2019 12:00:00 AM EDT 1 {puff} Inhalation active Intermittent as thma, unspecified asthma severity, unspecified whether complicated Inhale 1 puff into the lungs daily [facility] Intermittent asthma, unspecified asthma severity, unspecified whether complicated Albuterol Sulfate HFA 108 (90 Base) MCG/ ACT Inhalation Aerosol Solution (PROVENTIL HFA) 6949-8168-50 11/22/2019 12:00:00 AM EDT 2 {puff} Inha lation active Inhale 2 puffs i nto the lungs every 4 (four) hours as needed for Wheezing or Shortness of Breath [facility] Insurance Providers Payer name Policy type / Coverage type Policy ID Covered democrat ID Covered democrat's relationship to curry Policy Curry Plan Information Medicaid S [id number] S [id number] Managed Care [facility] P [id number] S [id number] [facility] [id number] SP [id number] Managed Care [facility] P [id number] S [id number] [facility] [id number] SP [id number] Medicaid S [id number] S [id number] Managed Care - [facility] Community Plan P [id number] S [id number] [facility] HealthCare P [id number] S [id number] [facility] COMM[facility] [id number] SP [id number] [facility] MEDICAID [id number] Kalyn [id number] Medicaid S [id number] S [id number] Managed Care [facility] Community Plan P [id number] S [id number] [facility] I [id number] Self [id number] Medicaid S [id number] S [id number] Medicaid S [id number] S [id number] [facility](MCAID) O [id number] S [id number] SP [id number] [facility] Health Maintenance Organization (HMO) [id number] Self [id number] [facility] Community [id number] Preferred Provider Organization (PPO) [id number] [facility] MEDICAID PI PI MEDICAID [id number] [facility] Yazmin/[facility] Health Maintenance Organization (HMO) [id number] Self [id number] MEDICAID M [id number] S [id number] [facility] [id number] SP [id number] [facility] [id number] SP [id number] [facility] [id number] SP [id number] [facility] COMMUNITY PLAN XIX [id number] 18 [id number] Managed Care - [facility] P [id number] S [id number] Problems, Conditions, and Diagnoses Code Display Name Description Problem Type Effective Dates Data Source(s) R06.00 Dyspnea, unspecified Dyspnea, unspecified Diagnosis 07/12/2020 02:05:00 PM EDT [facility] J45.20 Mild intermittent asthma, uncomplicated Mild intermittent asthma, uncomplicated Diagnosis 02/28/2020 01:13:57 PM EST [facility] V05.9 Vaccination Vaccination 01/19/2020 12:26:41 PM EDT [facility] V04.81 Needs influenza immunization Needs influenza immunizat ion 01/16/2020 11:19:38 AM EDT [facility] 782.0 Paresthesia of hand Paresthesia of hand 020 11:19:38 AM EDT [facility] V76.12 Encounter for screening mammogram for ma lignant neoplasm of breast Encounter for screening mammogram for malignant neoplasm of breast 01/16/2020 11:19:38 AM EDT [facility] Surgeries/Procedures Procedure Description Date Indications Data Source(s) XR CHEST FRONTAL AND LATERAL 29769 <td>XR CHEST FRONTA L AND LATERAL 92866</td><td>Routine</td><td>07/12/2020 2:17 PM EDT</td><td> Dyspnea on exertion</td><td> </td> 07/12/2020 02:17:28 PM EDT Dyspnea on exertion [facility] Dyspnea on exertion RADEX WRIST 2 VIEWS 01/24/2020 12:00:00 AM EDT [facility] ([facility]) RADEX WRIST 2 VIEWS 01/24/2020 12:00:00 AM EDT [facility] ([facility]) Inject/Drain Arthrocentesis Major Joint/Bursa/Ganglion Cyst 01/10/2020 12:00:00 AM EDT [facility] ([facility]) Results ID Date Data Source [id number] 12/27/2020 12:56:20 PM EDT [facility] Name Value Range Interpretation Code Description Data Elaine rce(s) Supporting Document(s) Progress Note [facility] MRUKFs4fOsJZSqFf50/BGPpuEIFfd4DxBIvjLPi7KEdyDLKbJ6QhKZE5kB4dFAX1BFtQHqZqEnUaQPV6 lbm [file] AgICAgICAgICAgICAgICAgICAgICAgICAgICAgICAg ICAgICAgICAgICAgICAgICAgDQogICAgICAgICAgICAgICAgICAgICAgICAgICAgICAgICAgICAgICAg ICAgICAgICAgICAgICAgICAgICAgICAgICAgICAgICAgICAgICAgICAgICAgICAgICAgICAgICAgICAg DQogICAgICAgICAgICAgICAgICAgICAgICAgICAgIC AgICAgICAgICAgICAgICAgICAgICAgICAgICAgICAgICAgICAgICAgICAgICAgICAgICAgICAgICAgIC AgICAgICAgICAgDQogICAgICAgICAgICAgICAgICAgICAgICAgICAgICAgICAgICAgICAgICAgICAgIC AgICAgICAgICAgICAgICAgICAgICAgICAgICAgICAg ICAgICAgICAgICAgICAgICAgICAgDQogICAgICAgICAgICAgICAgICAgICAgICAgICAgICAgICAgICAg ICAgICAgICAgICAgICAgICAgICAgICAgICAgICAgICAgICAgICAgICAgICAgICAgICAgICAgICAgICAg ICAgDQogICAgICAgICAgICAgICAgICAgICAgICAgIC AgICAgICAgICAgICAgICAgICAgICAgICAgICAgICAgICAgICAgICAgICAgICAgICAgICAgICAgICAgIC AgICAgICAgICAgICAgDQogICAgICAgICAgICAgICAgICAgICAgICAgICAgICAgICAgICAgICAgICAgIC AgICAgICAgICAgICAgICAgICAgICAgICAgICAgICAg ICAgICAgICAgICAgICAgICAgICAgICAgDQogICAgICAgICAgICAgICAgICAgICAgICAgICAgICAgICAg ICAgICAgICAgICAgICAgICAgICAgICAgICAgICAgICAgICAgICAgICAgICAgICAgICAgICAgICAgICAg ICAgICAgDQogICAgICAgICAgICAgICAgICAgICAgIC AgICAgICAgICAgICAgICAgICAgICAgICAgICAgICAgICAgICAgICAgICAgICAgICAgICAgICAgICAgIC AgICAgICAgICAgICAgICAgDQogICAgICAgICAgICAgICAgICAgICAgICAgICAgICAgICAgICAgICAgIC AgICAgICAgICAgICAgICAgICAgICAgICAgICAgICAg FRLdWDLxWUYsURKrTZPuVCRxRKQhNLXlAMKlFYi4A3pkXUPwPLKcIC5tJUf6Cj4+LPzTRsHbNSP3ghYj fY5JBR5rv7JvSMntAVDkm1NfWOr0YK1KKHYyVWfyKY6SQHmjdl5ZYZJoAGMebBTSv2guCuZmFIE3KWLt BqrrZU7FCXTjX6zdrjKdTECuQNIFIG7SFiHbX1KblS 28KKYMCu1+TXclklVsTzzDSjG1QVQgp8HbFMc0UZ9HUSWdRsgsx3VdCCXyCIJIGByvDN6JRHP0MWR3PE ClNc1NWEKkL329cbVbII3XRr1NYmVoAO6nly6OTXAiGAOhZttQVko4YUqhJZ7FwGKsFLiMat7tglBvwn VCa0PurxTlwQMWAOPcaCLbM8G4f2UhNUmbFTUhERjC VLD3EUKcUV2cUDOlHRCvGgL8EXJRDI3AQAHfGKRqcPBmYLLfAFCPGN3PBLmeIZJ7LLCzsqCplRMiRMiz TQ4UXKWdpmKgLCJlCMRKUEh+Wt8OXV2gt8WtWRijMlCnAH3bsi1GAAhWZcLqO3K0dLDtM5M0VNowDv1F LXFyBDIkDNJbCYABWJacKO3YDM2ztiD8YY1KbKFlIE JgLGSmmGFzMIx2J99dtAYzUMdzZQ8AXVJ+Howie+Mc2ILXPdEVAyKNDiYjMiRBEJOeTsL2GzM7FVt5PiE0 TnSF27bDfyitCfIJoiNR1HJA6fOQBcQTTTQW9PwBGutD0nkhXkNATrAFPJZwVyR73ndDEyVYMxAUEyFP WkAr4SPQBrC3NljrZfiCkpnqDsYYSbCSADNS3VRHgn ldSxiGGsuFyeAJ51nLugRH5BNz3GWqXmOQ1gbq5TvBPyQz2TJCVgIa1IKITeDERsEHIyXMV3WOLxDoVe HHxrBICsLBVeHAB7DYThQDLgIT7FVlTbTICrAYGfSGsoTTJdSNMngg2DCGZrKHFcIlkkAbDpUJVhPRFr SHloDTFlDLKpBJJ3FTKiSOKcJG6ZUkHiVQYmOWSdRU ceNEVgQZOhnj0PUFBcVEEpMvOpWYHhPIOiTDGeEKxeWYYjJUTvOgtoCDKhWSCrRH2ZYdNbXBAhKNQ2Yt ZzUXIjPXYrka5SRHNvHSCbQmZ7NbPjBWBaLOHeNWcuXSOoIMJ2IuM3GSZbMLGvMH3UErOzSHNoGFM8XZ DzEQZdRPYaiw0MOQEoDSTfOMv6XbCeQRGyBYPqRSzl ULAzKCM1Rrc7GOTaBFUoRX7CRzCwTRNiLPJ1VkDgQEGwCJAjiy1FEKGyQCImDtiiDtVkNGErLEBwCBxk ZKSiWKJ9VNG5VIOnXUPqRE5BAvJrPZpcMDEPHyl9PIxkW5w3CWJbCc2UK3Iii1ZxADGcAKAYYUrgAR3l jfFbPRZaUo1WC7pTKpw3WpBhRUG5DbLzD7V1UTY9Gj EoWLGfHyGgHNEgBOOfGL1sSLkaVqCeEALsGFA1BAecLQPrXbB4NtH2MiMbXZJjKYNoYvMcRI6EMv6DLm R2KMQ9zLXcBo7ZOqPjHx9OKZCRI8WBAd== ID Date Data Source [id number] 07/12/2020 04:35:50 PM EDT [facility] XR CHEST FRONTAL AND LATERAL [id number] RESULTInterpreted by:Simeon Garrido MDINDICATION: Dyspnea.TECHNIQUE: XR CHEST FRONTAL AND LATERAL [id number], 07/12/2020 2:10 PM, upright.COMPARISON: None available.FINDINGS: The [...] rce(s) Supporting Document(s) ID Date Data Source [id number] 02/28/2020 02:16:21 PM EST [facility] Name Value Range Interpretation Code Description Data Elaine rce(s) Supporting Document(s) Progress Note [facility] VXXQJv8cFsHWLsUm12/QJQhjTNFgv4AoOGhaPFm6IPniPHKnS7VzNNB0nF9oMWO9RZsREiLrEdHdVPH4 lbm HbQrbLEpZwOAPzNwjPKmUzCLbjEwagzECgHP4LhWC6SUPpU81wVIYfDIZdL2DdRFA7PNB+Zq7BQFBagT FcKV5APkdQ9SsJw8f2KN7gnF8LXEDKScvPrCRwCrGBeLqUgS0zyz7KEc3WpbKT22prCIro//3ldgV5rQ zEDpVtwNqH+Ariella++5Vd7ephCEJof/RVDxkwBZ5m/Mx [file] AwMDAwMzIxNSAwMDAwMCBuDQowMDAwMDAzNDExIDAw ABObQS8TWbQxCVFpNGO5YULvSOSvTPCyts8EPGDdPUSoEYT0UNUiXKNlMOHoARjsNFNdBKU4JyUvTKXj XFAiGD5GUaRjNGPySWG1WrblBILhHYJzph0ZTUMkWCYdSfC9RyIgMRXeHGCdBYvqIAAhORV8WlK1MSIa PCQxEJ6XAoToPAEpTIA4DXorUCRuKDFnbt5RVQQtZM XyEcG6LMEdDQYwBRJuIVzwURDfBQS9CkF6FUJrACEsWB6RYuKtEFJxVFo4RJLzUCKnWXXwqf3DLFVhIJ DkGNG5BpNcCIIrSBZoSDxpSBWwCIG5NSEpZFBoVBExYD1VFvPpBFHyTXczCmFmKGRlMRQasw1FdWTsqK exqq9UEPpGBo0QpUjaBYSrLKjgUh3peACcALHgBXHR Vw2JkrQpRWMpGPOUBSiyFBOdBPxiKXZ9HnQqSmDuAQS4LFU5SbWmAPi3Hhl1JrU3NCDqHrZ9GVYhRZV0 EzQeBHD6RSifYNhyPIEaGkb4Heu2HTe6GQW+BY2oUNq+Iy1El8IihrM0mgZkKLxpKNGtOF3SKUXFR4CP Cg== ID Date Data Source [id number] 02/28/2020 02:16:06 PM [facility] Name Value Range Interpretation Code Description Data Elaine rce(s) Supporting Document(s) Progress Note [facility] OGJLSb7zDcDNAsKv93/TYUfjPTOom8AePZrgYRm9BQlkRPHbH3BhMLX4vG4bQVI0OKzAKdMbIhKtZGW9 lbm [file] clDSPGGuMaHhm1MVlxHYTBKm8U ID Date Data Source [id number] 02/21/2020 12:00:00 AM EST [facility] Name Value Range Interpretation Code Description Data Elaine rce(s) Supporting Document(s) SARS coronavirus 2 Ag [facility] This lab was ordered by [facility] and reported by [facility]. ID Date Data Source [id number] 02/01/2020 09:20:00 AM EDT [facility] ([facility]) Name Value Range Interpretation Code Description Data Elaine rce(s) Supporting Document(s) ferritin 13 NG/mL 8-252 Ferritin [facility] ([facility]) ID Date Data Source [id number] 02/01/2020 09:20:00 AM EDT [facility] ([facility]) Name Value Range Interpretation Code Description Data Elaine rce(s) Supporting Document(s) total 25(oh) vitamin D 21.7 NG/mL 30.0-100.0 Below low normal T otal 25(Oh) Vitamin D [facility] ([facility]) ID Date Data Source [id number] 02/01/2020 09:20:00 AM EDT [facility] ([facility]) Name Value Range Interpretation Code Description Data Elaine rce(s) Supporting Document(s) vitamin B12 level 254 pg/mL Vitamin B12 Level [facility] ([facility]) folate 6.0 NG/mL Folate [facility] ([facility]) ID Date Data Source [id number] 02/01/2020 09:20:00 AM EDT [facility] ([facility]) Name Value Range Interpretation Code Description Data Elaine rce(s) Supporting Document(s) iron (fe) 19 ug/dL 50-170 Below low normal Iron (Fe) [facility] ( [facility]) ID Date Data Source [id number] 02/01/2020 09:20:00 [facility] Name Value Range Interpretation Code Description Data Elaine rce(s) Supporting Document(s) HDL cholesterol 50 mg/dL >40 HDL Cholesterol ATHE NA ([facility]) triglycerides level 119 mg/dL <150 Triglycerides Le pily N[facility]OLAS ([facility]) cholesterol level 160 mg/dL <200 Cholesterol Level [facility] ([facility]) Cholesterol in LDL [Mass/volume] in Serum or Plasma 86 mg/dL <1 00 LDL Cholesterol [facility] ([facility]) cholesterol risk ratio <5 Cholesterol R isk Ratio [facility] ([facility]) non-HDL-C 110 mg/dL Non-hdl-c [facility] ([facility]) ID Date Data Source [id number] 02/01/2020 09:20:00 AM EDT [facility] ([facility]) Name Value Range Interpretation Code Description Data Elaine rce(s) Supporting Document(s) blood urea nitrogen 9 mg/dL 7-18 Blood Urea Nitro gen [facility] ([facility]) glucose, fasting 144 mg/dL 70-100 Above high normal Glucose, Fas ting [facility] ([facility]) potassium serum 3.9 mEq/L 3.5-5.1 Potassium Serum ATHE NA ([facility]) sodium level 139 mEq/L 136-145 Sodium Level [facility] ([facility]) creatinine for GFR 0.65 mg/dL 0.55-1.30 Creatinine for GF R [facility] ([facility]) glomerular filtration rate > 60.0 >58 Glomerula r Filtration Rate [facility] ([facility]) AST/SGOT 26 U/L 7-37 AST/SGOT [facility] ([facility]) carbon dioxide level 28 mEq/L 21-32 Carbon Dioxide Level [facility] ([facility]) calcium level 8.6 mg/dL 8.5-10.1 Calcium Level [facility] ( [facility]) chloride level 104 mEq/L 98-107 Chloride Level NIKOLAS ([facility]) anion gap 7 mEq/L 8-16 Below low normal Anion Gap NIKOLAS ( [facility]) bilirubin,total 0.3 mg/dL 0.2-1.0 Bilirubin,total ATHE ([facility]) ALT/SGPT 27 U/L 12-78 ALT/SGPT NIKOLAS ([facility]) alkaline phosphatase 119 U/L 45-117 Above high normal Alkaline Phosphatase NIKOLAS ([facility]) albumin 3.1 gm/dL 3.2-5.2 Below low normal Albumin NIKOLAS ( [facility]) total protein 6.8 gm/dL 6.4-8.2 Total Protein NIKOLAS ( [facility]) albumin/globulin ratio 1.2-2.2 Below low normal Albumin /globulin Ratio NIKOLAS ([facility]) ID Date Data Source [id number] 02/01/2020 09:20:00 AM EDT NIKOLAS ([facility]) Name Value Range Interpretation Code Description Data Elaine rce(s) Supporting Document(s) Hemoglobin A1c/Hemoglobin.total in Blood 6.5 % Hemoglobin a1C NIKOLAS ([facility]) estimated average glucose 140 mg/dL 60-110 Above high norm al Estimated Average Glucose NIKOLAS ([facility]) ID Date Data Source [id number] 02/01/2020 09:20:00 AM EDT NIKOLAS ([facility]) Name Value Range Interpretation Code Description Data Elaine rce(s) Supporting Document(s) white blood count 9.7 10 4.0-10.0 White Blood Count NIKOLAS ([facility]) red blood count 4.97 10 4.00-5.40 Red Blood Count ATHE ([facility]) hemoglobin 9.9 g/dL 12.0-15.5 Below low normal Hemoglobin NIKOLAS ( [facility]) mean corpuscular volume 74.8 fL 80.0-96.0 Below low normal Mean Corpuscular Volume NIKOLAS ([facility]) mean corpuscular hemoglobin 19.9 pg 27.0-33.0 Below low nor mal Mean Corpuscular Hemoglobin NIKOLAS ([facility]) hematocrit 37.2 % 36.0-47.0 Hematocrit NIKOLAS ([facility]) red cell distribution width 23.6 % 11.5-14.5 Above high no rmal Red Cell Distribution Width NIKOLAS ([facility]) neutrophils % 65.6 % 36.0-66.0 Neutrophils % NIKOLAS ( [facility]) platelet count, automated 402 10 150-450 Platelet C ount, Automated NIKOLAS ([facility]) mean corpuscular HGB conc 26.6 g/dL 32.0-36.5 Below low mikael l Mean Corpuscular HGB Conc NIKOLAS ([facility]) lymph % 18.1 % 24.0-44.0 Below low normal Lymph % NIKOLAS ( [facility]) baso % 1.0 % 0.0-1.0 Baso % NIKOLAS ([facility]) mono % 6.5 % 0.0-5.0 Above high normal [place] % NIKOLAS ([facility]) eos % 8.4 % 0.0-3.0 Above high normal Eos % NIKOLAS ([facility]) immature granulocyte % 0.4 % 0-3.0 Immature Gran ulocyte % [place]AD[place]AY ([facility]) nucleated red blood cell % 0.0 % 0-0 Nucleated Red Blood Cell % [place] ([facility]) lymph # 1.8 10 1.5-5.0 Lymph # [place] ([facility]) neutrophils # 6.3 10 1.5-8.5 Neutrophils # [place] ( [facility]) mono # 0.6 10 0.0-0.8 [place] # [place] ([facility]) eos # 0.8 10 0.0-0.5 Above high normal Eos # [place] ([facility]) baso # 0.1 10 0.0-0.2 Baso # [place] ([facility]) ID Date Data Source [id number] 01/16/2020 10:10:35 AM EDT [facility] Measurements & CalculationsHeight: 59 inches (4 ft. [...] care clinic? Yes - arm pain - [facility] EREmergency room (ER) or urgent care date reported today: 01/02/2020Have you seen another healthcare provider? Yes - Pulmonary, OrthopedicHave you seen a dentist? Yes - [place] [facility] performed by: Ann Bower MA, [...] during this visit, including review of any ebio-jtg-nwasabb medications, herbal therapies, and/or supplements.Allergy ReviewAllergy List [...] to set this up.Needs influenza immunization (ICD-V04.81) (QVD17-Y44.3) Assessment: Instructions: You have had your Flu vaccine done today. There may be soreness at the injection site. Please report any adverse reactions.Vaccination (ICD- V05.9) ([id number]) Assessment: Instructions: Flu vaccine given today.Encounter for screening mammogram for malignant neoplasm of breast (ICD- V76.12) (CQW91-P41.31) Assessment: Instructions: We have ordered a mammogram for you today. We will contact you to set this up.Assessed:Asthma (ICD-493.90) (KFL42-Z22.909) Assessment: Pt states started on new inhalers by pulmonary. Pt states feeling much better. Instructions: Please continue media tions as prescribed. Please try to avoid asthma triggers. Please continue to follow with [employer] [facility] as scheduled.Person consulting for explanation of examination or test findings (ICD-V65.8) (YRI87-Y83.2) Assessment: HGB decreased Pt asymtomatic. order to recheck prior to next visit Instructions: We have reviewed your lab results with you today. Please continue medications as prescribed. Please continue healthy diet and physical activities.Anemia (ICD- 285.9) (LVS13-C57.9) Assessment: HGB decreased, pt asymtomatic. order to recheck prior to next visit. Instructions: Please continue healthy diet and physical activities. Will recheck labs prior to next visit.Dyspnea, unspecified (QZS83-Y30.00) Assessment: pt denies sob at this time. Instructions: Lungs sounds clear on auscultation. Please continue medications as prescribed. Please continue to follow with your pumonologist as scheduled.Asthmatoid wheeze (ICD- 786.07) (OHP57-S08.2) Assessment: Instructions: Lungs sounds clear on ausc ultation. Please continue medications as prescribed. Please continue to follow with your pumonologist as scheduled.Screening for malignant neoplasms of the cervix (ICD-V76.2) (KJS07-P70.4) Assessment: Instructions: We have made a referral to [facility] for you today. We will contact you to set this up.Patient Instructions/Care Plan: Paresthesia of hand: We have made a referral for you today. Wew will contact you to set this up.Asthma: Please continue mediations as prescribed. Please try to avoid asthma triggers. Please continue to follow with [employer] [facility] as scheduled.Needs influenza immunization: You have had [...] cervix: We have made a referral to [facility] for you today. We will contact you to set this up. Plan developed in collaboration with patient and/or familyMedications:STIOLTO RESPIMAT 2.5-2.5 MCG/ACT INHALATION AEROSOL SOLUTIONARNUITY ELLIPTA 100 MCG/ACT INHALATION AEROSOL POWDER BREATH ACTIVATEDALBUTEROL SULFATE 2.5 MG/0.5ML INHALATION NEBULIZATION SOLUTIONNYSTATIN 838224 UNIT/ML MOUTH/THROAT SUSPENSIONPREDNISONE 10 MG ORAL TA BLETOMEPRAZOLE 20 MG ORAL CAPSULE DELAYED RELEASEIPRATROPIUM-ALBUTEROL 0.5-2.5 (3) MG/3ML INHALATION SOLUTIONFERROUS SULFATE 325 (65 FE) MG ORAL GLSMHO5VI [facility] COMFORTOUCHONETOUCH VERIO IN VITRO STRIPONETOUCH VERIO W/DEVICE KITMETFORMIN HCL ER 500 MG ORAL TABLET EXTENDED RELEASE 24 HOURVITAMIN D3 02121 UNIT ORAL TABLETALBUTEROL SULFATE NEBULIZATION SOLUTIONVENTOLIN HFA [...] 180[Inhalation] Refills: 5 Method: ElectronicAllergies:ASPIRIN (Critical)* FISH (Severe)Orders:[employer] [CPT-62523] Mammography - Screening -bilateral (2-view study of each breast), including computer-aided detection (CAD) when performed [CPT-30862] Orthopaedics Consult [CPT-28806] COMP METABOLIC PANEL [CPT-40682] CBC W/DIFF [CPT-33779] HgBA1c [CPT- 30056] LIPID PANEL [CPT-75278] Vitamin D 250H Unspecified [CPT-66859] IRON [CPT- 61419] VITAMIN B-12 [CPT-48414] FERRITIN [CPT-23985] Folate (Folic Acid Serum) [CPT-26844] Administration of Influenza Virus Vaccine [CPT-G0008] FluLaval Quadrivalent, preservative free [CPT-54814] 41093 - Immo Admin (over 19 yrs), 1st Vaccine [CPT-85061] Adult - Ofc Vst, EST, Level IV [CPT-43399] Follow-Up Return to clinic: 4-6 weeks for follow up Clinical Visit Summary CompletedMedications:ALBUTEROL SULFATE 2.5 MG/0.5ML INHALATION NEBULIZATION SOLUTION (ALBUTEROL SULFATE) inhale contents of one vial via nebulizer every 4 hours as needed #180[Inhalation] x 5 Route:INHALATION Entered and Authorized by: Alyse PACHECO Method used: Electronically to [facility] (retail) [address] [place] [address] Fax: Note to Pharmacy: Route: INHALATION; Indications: ASTHMA RxID: [id number] Questionnaire1) Does the patient have a long-term [...] Syringe 0.5 MLMfr / Lot# / Exp.Date: [employer] / [id number] 10/02/2020mt. Given / Route / Site: 0.5 mL / IM / Left DeltoidNDC / CVX: [id number] / 150Administered Date: 01/16/2020 11:22VFC Eligibility: Non-VFC ClinicVIS Date: 11/17/2018VIS Given / VIS Given On: 01/16/2020Comments: Administered by: Mary Mtz LPN Name Value Range Interpretation Code Description Data Elaine rce(s) Supporting Document(s) Procedure Social History Code Duration Value Status Description Data Source(s ) Tobacco use and exposure 02/28/2020 12:00:00 AM EST Never used co mpleted Never used [facility] Smoking 02/28/2020 12:00:00 AM EST Never smoker completed Never s [facility] Vital Signs ID Date Data Source UNK Name Value Range Interpretation Code Description Data Source(s) Body temperature 96.6 [degF] 96.6 [degF] MEDENT ([facility]) Body weight 211.00 [lb_av] 211.00 [lb_av] MEDEN T ([facility]) Body height 60 [in_i] 60 [in_i] MEDENT ([facility]) 5'0" Body mass index (BMI) [Ratio] 41.2 kg/m2 41.2 k g/m2 MEDENT ([facility]) Diastolic blood pressure 83 mm[Hg] 83 mm[Hg] [facility], [facility]) Systolic blood pressure 124 mm[Hg] 124 mm[Hg] [facility] ([facility], [facility]) Heart rate 101 /min 101 /min [facility] ([facility], [facility]) Respiratory rate 13 /min 13 /min [facility] ( [facility], [facility]) Oxygen saturation in Arterial blood by Pulse oximetry 94 % 94 % [facility] ([facility], [facility]) Systolic blood pressure 118 mm[Hg] 118 mm[Hg] [facility] ([facility], [facility]) Diastolic blood pressure 74 mm[Hg] 74 mm[Hg] [facility] ([facility], [facility]) Heart rate 127 /min 127 /min [facility] ([facility], [facility]) Respiratory rate 18 /min 18 /min [facility] ( [place] [facility] [place], [facility]) Oxygen saturation in Arterial blood by Pulse oximetry 98 % 98 % [facility] ([place] [facility] [place], [facility]) Body temperature 98.6 [degF] 98.6 [degF] [facility] ([facility], [facility]) Body weight 212.00 [lb_av] 212.00 [lb_av] [facility]) Body temperature 96.8 [degF] 96.8 [degF] [facility] ([facility]) Body height 58 [in_i] 58 [in_i] [facility] ([facility]) 4'10" Body weight 215.00 [lb_av] 215.00 [lb_av] [facility] Body mass index (BMI) [Ratio] 44.9 kg/m2 44.9 k g/m2 [facility] ([facility]) [place] body weight 100 [lb_av] 100 [lb_av] [facility] Body weight 97.524 kg 97.524 kg [facility] ([facility]) Systolic blood pressure 120 mm[Hg] 120 mm[Hg] [facility] ([place] [facility] [place], [facility]) Diastolic blood pressure 70 mm[Hg] 70 mm[Hg] MEDENT ([facility], [facility]) Heart rate 66 /min 66 /min [facility] ([facility], [facility]) Respiratory rate 16 /min 16 /min [facility] ( [facility]) Oxygen saturation in Arterial blood by Pulse oximetry 98 % 98 % [facility] ([facility], [facility]) Body temperature 98.0 [degF] 98.0 [degF] MEDENT ([facility], [facility]) Body weight 214.00 [lb_av] 214.00 [lb_av] MEDEN T ([facility], [facility]) Body height 59 [in_i] 59 [in_i] [facility] ([facility]) 4'11" Body mass index (BMI) [Ratio] 43.2 kg/m2 43.2 k g/m2 [facility] ([facility]) ID Date Data Source [id number] 02/28/2020 02:16:21 PM [facility] Name Value Range Interpretation Code Description Data Source(s) WEIGHT RECORDED 212 lb 212 lb [facility] Body height Measured 56.69 in 56.69 in [facility] Patient Treatment Plan of Care Planned Activity Planned Date Details Description Data Source (s) Albuterol Sulfate HFA 108 (90 Base) MCG/ ACT Inhalation Aerosol Solution (PROVENTIL HFA) 11/22/2019 12:00:00 AM [facility] Trelegy Ellipta 100-62.5-25 MCG/INH Aero errol Powder Breath Activated (Txjmgmyuhbt-Eelqmwfbl-Ncclxu) 11/22/2019 12:00:00 AM [facility]
[2021-02-12 21:26] LABS: BASO # 0.1 10^3/uL (0.0-0.2); BASO % 0.6 % (0.0-1.0); EOS # 0.4 10^3/uL (0.0-0.5); EOS % 2.8 % (0.0-3.0); HEMATOCRIT 34.3 % (36.0-47.0); HEMOGLOBIN 9.7 g/dl (12.0-15.5); LYMPH % 18.7 % (24.0-44.0); MEAN CORPUSCULAR HEMOGLOBIN 20.6 pg (27.0-33.0); MEAN CORPUSCULAR HGB CONC 28.3 g/dl (32.0-36.5); MONO # 0.7 10^3/uL (0.0-0.8); MONO % 4.4 % (2.0-8.0); NEUTROPHILS # 11.7 10^3/uL (1.5-8.5); NEUTROPHILS % 73.2 % (36.0-66.0); PLATELET COUNT, AUTOMATED 443 10^3/uL (150-450)
[2021-02-12 21:53] LABS: BLOOD UREA NITROGEN 9 MG/DL (7-18); CALCIUM LEVEL 8.8 MG/DL (8.5-10.1); CARBON DIOXIDE LEVEL 26 MEQ/L (21-32); CHLORIDE LEVEL 103 MEQ/L (98-107); CREATININE FOR GFR 0.64 MG/DL (0.55-1.30); GLOMERULAR FILTRATION RATE > 60.0 (>58); GLUCOSE, FASTING 103 MG/DL (70-100); POTASSIUM SERUM 3.9 MEQ/L (3.5-5.1); SODIUM LEVEL 138 MEQ/L (136-145)
[2021-02-12 22:03] LABS: HCG, SERUM QUALITATIVE NEGATIVE (NEGATIVE)
[2021-02-12] MEDS ORDERED: ISOVUE-370 76% 100ML VIAL As Ordered ONE (22:21)
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
[2021-02-13 00:47] VITALS: BP 136/79
--- NOTE | 2021-02-13 09:45 | ED PDOC ---
Post-Departure Follow-Up radiology report faxed to Ita Navarro MD Feb 13, 2021 09:45
== END 2021-02-13 00:48 | disposition home or self-care (01) ==
LOC: M ED 17:31
DX: Z04.1 Encounter for examination and observation following transport accident (principal); M54.2 Cervicalgia; E11.9 Type 2 diabetes mellitus without complications; J45.909 Unspecified asthma, uncomplicated; G47.30 Sleep apnea, unspecified; Z79.899 Other long term (current) drug therapy; Z79.84 Long term (current) use of oral hypoglycemic drugs; Z88.8 Allergy status to other drugs, medicaments and biological substances
CPT/HCPCS: 36415; 70450; 70486; 71260; 72125; 73590; 74177; 80048; 84703; 85025; 93041; 94760; 99284; Q9967

== ENCOUNTER → 2021-07-03 | Outpatient (RCR) | payer OTHER ==
[~2021-07-03] MED LIST changes: -MONT10TA10 PO; +MONT10TA97 PO; +OMEP-173; -OMEP-218
== END ==
LOC: M PT 10:57
PROVIDERS: ATTEND Orthopaedic Surgery
DX: M54.50 Low back pain, unspecified (principal)

== ENCOUNTER 2021-07-24 10:00 | Outpatient (RCR) | payer OTHER | END 2021-08-02 | LOC: M PT 10:00 | PROVIDERS: ATTEND Orthopaedic Surgery | DX: M54.50 Low back pain, unspecified (principal) ==

== ENCOUNTER → 2021-08-20 | Outpatient (REF) | payer OTHER, MEDICAID | LOC: M LAB REF 16:36 | PROVIDERS: ATTEND Nurse Practitioner Family | DX: J02.9 Acute pharyngitis, unspecified (principal) ==

== ENCOUNTER → 2022-04-14 | Outpatient (CLI) | payer MEDICAID, OTHER ==
[~2022-04-14] MED LIST changes: +ALBU2.5V10; +ALBU2.5V10 PO; -ALBU83IN; -ALBU83IN PO
== END ==
LOC: M RAD 16:15
PROVIDERS: ATTEND Nurse Practitioner Family
DX: M47.816 Spondylosis without myelopathy or radiculopathy, lumbar region (principal); M54.41 Lumbago with sciatica, right side

== ENCOUNTER → 2023-06-16 | Outpatient (REF) | payer MEDICAID ==
[~2023-06-16] MED LIST changes: +ALBU8.5H; +LIDO15SO8 PO; -LIDO2SOL17 PO; +STIO1AER
[2023-06-16 14:50] LABS: BASO # 0.1 10^3/uL (0.0-0.2); BASO % 1.1 % (0.0-1.0); EOS # 0.8 10^3/uL (0.0-0.5); EOS % 7.1 % (0.0-3.0); HEMATOCRIT 32.3 % (36.0-47.0); HEMOGLOBIN 8.5 g/dl (12.0-15.5); LYMPH # 2.7 10^3/uL (1.5-5.0); LYMPH % 22.9 % (24.0-44.0); MEAN CORPUSCULAR HEMOGLOBIN 17.9 pg (27.0-33.0); MEAN CORPUSCULAR HGB CONC 26.3 g/dl (32.0-36.5); MEAN CORPUSCULAR VOLUME 67.9 fl (80.0-96.0); MONO # 0.8 10^3/uL (0.0-0.8); MONO % 6.6 % (2.0-8.0); NEUTROPHILS # 7.2 10^3/uL (1.5-8.5); PLATELET COUNT, AUTOMATED 510 10^3/uL (150-450); RED BLOOD COUNT 4.76 10^6/uL (4.00-5.40); WHITE BLOOD COUNT 11.6 10^3/uL (4.0-10.0)
[2023-06-16 15:15] LABS: HEMOGLOBIN A1c 6.6 % (4.0-6.0)
[2023-06-16 15:21] LABS: ALBUMIN 3.6 G/DL (3.2-5.2); ALKALINE PHOSPHATASE 94 U/L (46-116); ALT/SGPT < 9 U/L (7.0-40); AST/SGOT 20 U/L (<34); BILIRUBIN,TOTAL 0.4 MG/DL (0.3-1.2); BLOOD UREA NITROGEN 11 MG/DL (9-23); CALCIUM LEVEL 8.2 MG/DL (8.5-10.1); CARBON DIOXIDE LEVEL 27 MMOL/L (20-31); CHLORIDE LEVEL 101 MMOL/L (98-107); CHOLESTEROL LEVEL 132 MG/DL (<200); CHOLESTEROL RISK RATIO 2.78 (<5); CREATININE FOR GFR 0.55 MG/DL (0.55-1.30); GLOMERULAR FILTRATION RATE > 60.0 (>58); GLUCOSE, FASTING 131 MG/DL (60-100); HDL CHOLESTEROL 47.4 MG/DL (>40); MAGNESIUM LEVEL 1.8 MG/DL (1.8-2.4); NON-HDL-C 84.6 MG/DL; SODIUM LEVEL 135 MMOL/L (136-145); THYROID STIMULATING HORMONE 3.201 uIU/ML (0.55-4.78); TOTAL 25(OH) VITAMIN D 18.6 NG/ML (20.0-100.0); TRIGLYCERIDES LEVEL 78 MG/DL (<150)
== END ==
LOC: MERGE 13:29 → M LAB REF 13:29
PROVIDERS: ATTEND Nurse Practitioner Family
DX: E66.01 Morbid (severe) obesity due to excess calories (principal); E55.9 Vitamin D deficiency, unspecified

== ENCOUNTER → 2023-06-17 | Outpatient (CLI) | payer OTHER | LOC: M WHC 09:37 | PROVIDERS: ATTEND Nurse Practitioner Family | DX: Z12.31 Encounter for screening mammogram for malignant neoplasm of breast (principal) ==

== ENCOUNTER → 2023-06-17 | Outpatient (CLI) | payer MEDICAID, OTHER | LOC: MERGE 09:13 → M WHC 09:13 | PROVIDERS: ATTEND Nurse Practitioner Family | DX: Z53.9 Procedure and treatment not carried out, unspecified reason (principal) ==

== ENCOUNTER 2023-06-18 22:04 | Emergency (ER) | payer OTHER ==
[~2023-06-18] VITALS: Ht 152.4 cm; Wt 93.0 kg
[2023-06-19] MEDS: predniSONE 20 MG TAB PO ONE (01:16)
[2023-06-19] MEDS: IPRATROPIUM 0.5MG/ALBUTEROL 2.5MG INH SOL UD 3ML (DUONEB) NEB ONE (01:17)
[2023-06-19] MEDS: IPRATROPIUM 0.5MG/ALBUTEROL 2.5MG INH SOL UD 3ML (DUONEB) NEB PRN (01:29)
[2023-06-19 02:30] VITALS: BP 141/75; TEMP 98; O2SAT 95
[2023-06-19] MEDS ORDERED: ALBU2.5V10 PO (02:39)
== END 2023-06-19 03:01 | disposition home or self-care (01) ==
LOC: M ED 22:04
DX: J45.901 Unspecified asthma with (acute) exacerbation (principal); E11.9 Type 2 diabetes mellitus without complications; K21.9 Gastro-esophageal reflux disease without esophagitis; F17.210 Nicotine dependence, cigarettes, uncomplicated; Z88.8 Allergy status to other drugs, medicaments and biological substances; Z79.51 Long term (current) use of inhaled steroids; Z79.84 Long term (current) use of oral hypoglycemic drugs; Z79.899 Other long term (current) drug therapy; Z79.52 Long term (current) use of systemic steroids
CPT/HCPCS: 71045; 87486; 87581; 87633; 87798; 94640; 99284; J7512

== ENCOUNTER → 2023-11-03 | Outpatient (REF) | payer OTHER ==
[2023-11-03 13:54] LABS: BASO # 0.1 10^3/uL (0.0-0.2); BASO % 0.9 % (0.0-1.0); EOS # 0.6 10^3/uL (0.0-0.5); EOS % 5.6 % (0.0-3.0); HEMATOCRIT 39.7 % (36.0-47.0); HEMOGLOBIN 11.6 g/dl (12.0-15.5); LYMPH # 2.5 10^3/uL (1.5-5.0); LYMPH % 23.2 % (24.0-44.0); MEAN CORPUSCULAR HEMOGLOBIN 23.5 pg (27.0-33.0); MEAN CORPUSCULAR HGB CONC 29.2 g/dl (32.0-36.5); MEAN CORPUSCULAR VOLUME 80.5 fl (80.0-96.0); MONO # 0.6 10^3/uL (0.0-0.8); MONO % 5.7 % (2.0-8.0); NEUTROPHILS # 7.1 10^3/uL (1.5-8.5); NEUTROPHILS % 64.3 % (36.0-66.0); PLATELET COUNT, AUTOMATED 483 10^3/uL (150-450); RED BLOOD COUNT 4.93 10^6/uL (4.00-5.40)
[2023-11-03 13:58] LABS: ALBUMIN 3.6 G/DL (3.2-5.2); ALKALINE PHOSPHATASE 119 U/L (46-116); ALT/SGPT 21 U/L (7.0-40); AST/SGOT 18 U/L (<34); BILIRUBIN,TOTAL 0.3 MG/DL (0.3-1.2); BLOOD UREA NITROGEN 8 MG/DL (9-23); CALCIUM LEVEL 9.1 MG/DL (8.5-10.1); CARBON DIOXIDE LEVEL 27 MMOL/L (20-31); CHLORIDE LEVEL 103 MMOL/L (98-107); CREATININE FOR GFR 0.58 MG/DL (0.55-1.30); GLOMERULAR FILTRATION RATE > 60.0 (>58); GLUCOSE, FASTING 131 MG/DL (60-100); IRON (FE) 17 UG/DL (50-170); POTASSIUM SERUM 4.7 MMOL/L (3.5-5.1); SODIUM LEVEL 138 MMOL/L (136-145); TOTAL PROTEIN 7.1 G/DL (5.7-8.2)
[2023-11-03 13:59] LABS: PERCENT SATURATION 3.7 % (13.2-45.0); TOTAL IRON BINDING CAPACITY 459 UG/DL (250-425)
[2023-11-03 14:02] LABS: FERRITIN 4.4 NG/ML (7.3-270.7)
[2023-11-03 14:07] LABS: VITAMIN B12 LEVEL 238 PG/ML (211-911)
[2023-11-03 14:09] LABS: FOLATE 8.4 NG/ML (>5.4)
[2023-11-03 14:29] LABS: HEMOGLOBIN A1c 6.8 % (4.0-6.0)
== END ==
LOC: M LAB REF 12:59
PROVIDERS: ATTEND Nurse Practitioner Family
DX: D64.9 Anemia, unspecified (principal); R73.03 Prediabetes

== ENCOUNTER → 2023-11-11 | Outpatient (REF) | payer OTHER ==
[2023-11-11 18:13] LABS: BASO # 0.1 10^3/uL (0.0-0.2); EOS # 0.6 10^3/uL (0.0-0.5); EOS % 5.1 % (0.0-3.0); HEMATOCRIT 40.5 % (36.0-47.0); HEMOGLOBIN 11.9 g/dl (12.0-15.5); LYMPH # 3.3 10^3/uL (1.5-5.0); LYMPH % 28.3 % (24.0-44.0); MEAN CORPUSCULAR HEMOGLOBIN 23.5 pg (27.0-33.0); MEAN CORPUSCULAR HGB CONC 29.4 g/dl (32.0-36.5); MEAN CORPUSCULAR VOLUME 79.9 fl (80.0-96.0); MONO # 0.6 10^3/uL (0.0-0.8); NEUTROPHILS # 6.9 10^3/uL (1.5-8.5); NEUTROPHILS % 60.4 % (36.0-66.0); PLATELET COUNT, AUTOMATED 513 10^3/uL (150-450); RED BLOOD COUNT 5.07 10^6/uL (4.00-5.40); WHITE BLOOD COUNT 11.5 10^3/uL (4.0-10.0)
[2023-11-11 18:38] LABS: C REACTIVE PROTEIN QUANTITATIV 0.5 MG/DL (<1.0)
[2023-11-11 18:40] LABS: CHOLESTEROL RISK RATIO 2.69 (<5); HDL CHOLESTEROL 59.8 MG/DL (>40); LDL CHOLESTEROL 84.6 MG/DL (<100); NON-HDL-C 101.2 MG/DL
[2023-11-11 18:48] LABS: ERYTHROCYTE SEDIMENTATION RATE 52 mm/hr (0-20)
== END ==
LOC: M LAB REF 17:15
PROVIDERS: ATTEND Nurse Practitioner Family
DX: M79.641 Pain in right hand (principal); M79.642 Pain in left hand; D64.9 Anemia, unspecified; Z13.220 Encounter for screening for lipoid disorders

== ENCOUNTER → 2024-02-15 | Outpatient (REF) | payer OTHER ==
[2024-02-15 18:44] LABS: HEMOGLOBIN A1c 5.9 % (4.0-6.0)
[2024-02-15 19:03] LABS: ALBUMIN 3.8 G/DL (3.2-5.2); ALKALINE PHOSPHATASE 106 U/L (35-104); ALT/SGPT 46 U/L (7.0-40); AST/SGOT 29 U/L (<34); BILIRUBIN,TOTAL 0.4 MG/DL (0.3-1.2); BLOOD UREA NITROGEN 9 MG/DL (9-23); CALCIUM LEVEL 9.7 MG/DL (8.5-10.1); CARBON DIOXIDE LEVEL 30 MMOL/L (20-31); CHLORIDE LEVEL 103 MMOL/L (98-107); GLOMERULAR FILTRATION RATE > 60.0 (>58); GLUCOSE, FASTING 97 MG/DL (60-100); IRON (FE) 65 UG/DL (50-170); PERCENT SATURATION 15.8 % (13.2-45.0); POTASSIUM SERUM 5.2 MMOL/L (3.5-5.1); SODIUM LEVEL 139 MMOL/L (136-145); TOTAL IRON BINDING CAPACITY 411 UG/DL (250-425); TOTAL PROTEIN 7.6 G/DL (5.7-8.2)
== END ==
LOC: M LAB REF 17:37
PROVIDERS: ATTEND Nurse Practitioner Family
DX: E11.9 Type 2 diabetes mellitus without complications (principal); D64.9 Anemia, unspecified

== ENCOUNTER → 2024-08-02 | Outpatient (REF) | payer OTHER ==
[~2024-08-02] MED LIST changes: -ADV250INH INH; +ADVA1AER9 INH
[2024-08-02 15:07] LABS: BASO # 0.1 10^3/uL (0.0-0.2); BASO % 1.2 % (0.0-1.0); EOS # 0.7 10^3/uL (0.0-0.5); EOS % 7.6 % (0.0-3.0); HEMATOCRIT 45.1 % (36.0-47.0); HEMOGLOBIN 14.7 g/dl (12.0-15.5); LYMPH # 2.3 10^3/uL (1.5-5.0); LYMPH % 24.6 % (24.0-44.0); MEAN CORPUSCULAR HEMOGLOBIN 32.9 pg (27.0-33.0); MEAN CORPUSCULAR HGB CONC 32.6 g/dl (32.0-36.5); MEAN CORPUSCULAR VOLUME 100.9 fl (80.0-96.0); MONO # 0.5 10^3/uL (0.0-0.8); MONO % 4.8 % (2.0-8.0); NEUTROPHILS # 5.9 10^3/uL (1.5-8.5); NEUTROPHILS % 61.5 % (36.0-66.0); PLATELET COUNT, AUTOMATED 381 10^3/uL (150-450); RED BLOOD COUNT 4.47 10^6/uL (4.00-5.40); WHITE BLOOD COUNT 9.5 10^3/uL (4.0-10.0)
[2024-08-02 15:37] LABS: TOTAL IRON BINDING CAPACITY 398 UG/DL (250-425)
[2024-08-02 15:39] LABS: ALBUMIN 3.7 G/DL (3.2-5.2); ALKALINE PHOSPHATASE 83 U/L (35-104); ALT/SGPT 25 U/L (7.0-40); AST/SGOT 20 U/L (<34); BILIRUBIN,TOTAL 0.5 MG/DL (0.3-1.2); BLOOD UREA NITROGEN 8 MG/DL (9-23); CALCIUM LEVEL 8.6 MG/DL (8.5-10.1); CARBON DIOXIDE LEVEL 29 MMOL/L (20-31); CHLORIDE LEVEL 100 MMOL/L (98-107); CHOLESTEROL LEVEL 176 MG/DL (<200); CHOLESTEROL RISK RATIO 2.97 (<5); GLOMERULAR FILTRATION RATE > 90.0 (>58); GLUCOSE, FASTING 167 MG/DL (60-100); HDL CHOLESTEROL 59.1 MG/DL (>40); IRON (FE) 60 UG/DL (50-170); LDL CHOLESTEROL 95.3 MG/DL (<100); MAGNESIUM LEVEL 1.9 MG/DL (1.8-2.4); NON-HDL-C 116.9 MG/DL; PERCENT SATURATION 15.1 % (13.2-45.0); POTASSIUM SERUM 4.7 MMOL/L (3.5-5.1); SODIUM LEVEL 139 MMOL/L (136-145); TOTAL 25(OH) VITAMIN D 26.8 NG/ML (20.0-100.0); TOTAL PROTEIN 7.1 G/DL (5.7-8.2); TRIGLYCERIDES LEVEL 108 MG/DL (<150); VITAMIN B12 LEVEL 223 PG/ML (211-911)
[2024-08-02 15:40] LABS: THYROID STIMULATING HORMONE 1.946 uIU/ML (0.55-4.78)
[2024-08-02 15:41] LABS: FOLATE 9.6 NG/ML (>5.4)
== END ==
LOC: M LAB REF 14:15
PROVIDERS: ATTEND Nurse Practitioner Family
DX: E55.9 Vitamin D deficiency, unspecified (principal); E66.01 Morbid (severe) obesity due to excess calories

== ENCOUNTER → 2024-08-08 | Outpatient (CLI) | payer OTHER | LOC: M WUC 15:11 | PROVIDERS: ATTEND Nurse Practitioner Family | DX: J45.909 Unspecified asthma, uncomplicated (principal) ==

== ENCOUNTER → 2024-10-12 | Outpatient (REF) | payer OTHER ==
[2024-10-12 14:17] LABS: BASO # 0.1 10^3/uL (0.0-0.2); BASO % 0.7 % (0.0-1.0); EOS # 0.5 10^3/uL (0.0-0.5); EOS % 4.0 % (0.0-3.0); LYMPH # 2.2 10^3/uL (1.5-5.0); LYMPH % 18.4 % (24.0-44.0); MONO # 0.6 10^3/uL (0.0-0.8); MONO % 4.7 % (2.0-8.0); NEUTROPHILS # 8.6 10^3/uL (1.5-8.5); NEUTROPHILS % 71.8 % (36.0-66.0); PLATELET COUNT, AUTOMATED 415 10^3/uL (150-450)
[2024-10-12 14:25] LABS: ALT/SGPT 23 U/L (7.0-40); AST/SGOT 19 U/L (<34); CALCIUM LEVEL 9.2 MG/DL (8.5-10.1); CARBON DIOXIDE LEVEL 28 MMOL/L (20-31); CHLORIDE LEVEL 103 MMOL/L (98-107); CREATININE FOR GFR 0.71 MG/DL (0.55-1.30); GLOMERULAR FILTRATION RATE > 90.0 (>58); IRON (FE) 54 UG/DL (50-170); MAGNESIUM LEVEL 1.9 MG/DL (1.8-2.4); PERCENT SATURATION 14.0 % (13.2-45.0); POTASSIUM SERUM 4.8 MMOL/L (3.5-5.1); SODIUM LEVEL 142 MMOL/L (136-145)
[2024-10-12 14:26] LABS: FREE T4 1.02 NG/DL (0.89-1.76); VITAMIN B12 LEVEL 190 PG/ML (211-911)
== END ==
LOC: M LAB REF 11:50
PROVIDERS: ATTEND Physician Assistant
DX: J02.9 Acute pharyngitis, unspecified (principal); D64.9 Anemia, unspecified; R42 Dizziness and giddiness